=== PATIENT | female | born 1985 | race Caucasian/White ===

== ENCOUNTER 2016-08-26 15:01 | Inpatient (IN) | payer MEDICAID ==
[2016-08-26] MEDS ORDERED: NORMAL SALINE 1000 ML 1,000 ML IV ONE ×2 (15:19→17:57)
[2016-08-26] MEDS ORDERED: ONDANSETRON HCL INJ/PF 4 MG/2 ML SDV IV ONE ×2 (15:19→20:15)
--- NOTE | 2016-08-26 15:42 | ER Document Report ---
ED Flu Like - General Chief Complaint: Flu Symptoms Stated Complaint: FLU LIKE SYMPTOMS Mode of Arrival: Medic Information source: Patient Notes: This is a 31-year-old female who states that she was diagnosed with a positive influenza test 2 days ago. She has had fevers and cough for about 4-1/2 days. She started her Tamiflu 2 days ago but last night awoke with frequent diarrhea. Today at about noon she began to have frequent episodes of vomiting as well. However she does state that the vomiting episodes are post tussive in nature. She states she is having difficulty tolerating by mouth water. She is also continuing to run fevers and states that she last took Tylenol at about noon today. TRAVEL OUTSIDE OF THE [place] IN LAST 30 DAYS: No - Related Data Allergies/Adverse Reactions: amoxicillin [Amoxicillin] Allergy (Verified 06/14/16 11:32) GI upset azithromycin [From Zithromax] Allergy (Verified 06/14/16 11:32) Hives cefaclor [From Ceclor] Allergy (Verified 06/14/16 11:32) cefprozil [From Cefzil] Allergy (Verified 06/14/16 11:32) codeine [Codeine] Allergy (Verified 06/14/16 11:32) GI upset corn [[place]] Allergy (Verified 06/14/16 11:32) gi upset/hives dextrose [Dextrose] Allergy (Verified 06/14/16 11:32) nausea,skin rash erythromycin base [Erythromycin Base] Allergy (Verified 06/14/16 11:32) hives,gi upset metoclopramide HCl [From Reglan] Allergy (Verified 06/14/16 11:32) "Skin crawls" polysorbate 80 [Polysorbate 80] Allergy (Verified 06/14/16 11:32) povidone-iodine [From Betadine] Allergy (Verified 06/14/16 11:32) chemical rash Soap [From Betadine] Allergy (Verified 06/14/16 11:32) chemical rash sorbitol [Sorbitol] Allergy (Verified 06/14/16 11:32) soy [Soy] Allergy (Verified 06/14/16 11:32) GI upset,rash Sulfa (Sulfonamide Antibiotics) Allergy (Verified 06/14/16 11:32) GI upset amoxicillin trihydrate [From Augmentin] Adverse Reaction (Severe, Verified 06/14 11:32) GI upset Potassium Clavulanate * [From Augmentin] Adverse Reaction (Severe, Verified 11:32) GI upset propofol [Propofol] Adverse Reaction (Severe, Verified 06/14/16 11:32) "EXTREME DIFFICULTY WAKING UP" succinylcholine [Succinylcholine] Adverse Reaction (Unknown, Verified 06/14/16 11:32) "STATES MOTHER HAD A BAD REACTION" TOLD NOT TO TAKE droperidol [From Inapsine] Adverse Reaction (Verified 06/14/16 11:32) Psychosis tygan Allergy (Uncoded 06/14/16 11:32) Past Medical History - Social History Smoking Status: Unknown if Ever Smoked Family History: Other - breast CA - Past Medical History Cardiac Medical History: Pulmonary Medical History: Neurological Medical History: Comment Only: Hx Migraine - frequent HAs no migraine dx Renal/ Medical History: Reports: Hx Kidney Stones, Hx Ovarian Cysts GI Medical History: Musculoskeltal Medical History: Infectious Medical History: Past Surgical History: Reports: Hx Abdominal Surgery - laproscopy, Hx Section - x 3, Hx Orthopedic Surgery - rt shoulder bicep repair, Hx Tubal Ligation. Denies: Hx Hysterectomy - Immunizations Immunizations up to date: Yes Hx Diphtheria, Pertussis, Tetanus Vaccination: Yes Physical Exam - Vital signs Vitals: Temp Pulse Resp BP Pulse Ox 99.1 F 122 H 16 126/75 H 97 08/26/16 15:11 08/26/16 15:11 08/26/16 15:11 08/26/16 15:11 08/26/16 15:11 - Notes Notes: PHYSICAL EXAMINATION: GENERAL: Alert and conversant but appears ill. Flushed cheeks. Also somewhat anxious affect HEAD: Atraumatic, normocephalic. EYES: Pupils equal round and reactive to light, extraocular movements intact, sclera anicteric, conjunctiva are normal. ENT: nares patent, oropharynx clear without exudates. Moist mucous membranes. Right TM erythematous. Left TM bulging with prurulence NECK: Normal range of motion, supple without lymphadenopathy LUNGS: Breath sounds clear to auscultation bilaterally and equal. No wheezes rales or rhonchi. HEART: Tachycardic, Regular rate and rhythm without murmurs ABDOMEN: Soft, nontender, normoactive bowel sounds. No guarding, no rebound. No masses appreciated. EXTREMITIES: Normal range of motion, no pitting or edema. No cyanosis. NEUROLOGICAL: Cranial nerves grossly intact. Normal speech, normal gait. Normal sensory, motor, and reflex exams. PSYCH: Normal mood, anxious affect SKIN: Warm, Dry, normal turgor, no rashes or lesions noted. Course - Re-evaluation Re-evalutation: 08/26/16 15:42 Patient presents with flulike illness. However she is tachycardic with a heart rate in the 120s and 130s and does appear dry. She will get IV fluid bolus as well as basic labs. As she has recently been on antibiotics we will test her stool for C. difficile. 08/26/16 17:52 Patient reexamined. She states that she still feels poorly. Her heart rate is 125 after the first liter normal saline. Her labs are reviewed and she does have a leukocytosis of 10.7 with 14% bands. Clinically I'm concerned about pneumonia although her chest x-ray is negative for infiltrate. I will treat with IV antibiotics. She states that she has tolerated Rocephin with no problems in the past despite multiple penicillin allergies. - Vital Signs Vital signs: Temp Pulse Resp BP Pulse Ox 99.8 F 157 H 20 112/75 100 08/26/16 19:31 08/26/16 19:33 08/26/16 21:31 08/26/16 21:31 08/26/16 21:31 - Laboratory Result Diagrams: 08/26/16 15:35 08/26/16 15:35 Laboratory results interpreted by me: 08/26/16 08/26/16 08/26/16 15:35 15:35 15:35 WBC 10.7 H Plt Count 82 L Seg Neuts % (Manual) 84 H Band Neutrophils % 14 H Lymphocytes % (Manual) 1 L Monocytes % (Manual) 1 L Abs Neuts (Manual) 10.5 H Abs Lymphs (Manual) 0.1 L Lactic Acid Magnesium 1.2 L* Urine Protein 100 H Urine Ketones TRACE H 08/26/16 20:20 WBC Plt Count Seg Neuts % (Manual) Band Neutrophils % Lymphocytes % (Manual) Monocytes % (Manual) Abs Neuts (Manual) Abs Lymphs (Manual) Lactic Acid 2.3 H Magnesium Urine Protein Urine Ketones Discharge - Discharge Clinical Impression: Influenza, Tachycardia, Orthostatic hypotension, Bandemia Left otitis media Qualifiers: Otitis media type: suppurative Chronicity: acute Recurrence: not specified as recurrent Spontaneous tympanic membrane rupture: without spontaneous rupture Qualified Code(s): H66.002 - Acute suppurative otitis media without spontaneous rupture of ear drum, left ear Disposition: ADMITTED INPATIENT Admitting Provider: Hospitalist - Dr Hightower Unit Admitted: Telemetry
[2016-08-26 16:01] LABS: HEMATOCRIT 43.9 % (36.0-47.0); HEMOGLOBIN 14.9 g/dL (12.0-15.5); HGB HCT DIFFERENCE 0.8; MEAN CORPUSCULAR HEMOGLOBIN 28.7 pg (27.0-33.4); MEAN CORPUSCULAR VOLUME 84 fl (80-97); RED BLOOD COUNT 5.21 10^6/uL (3.72-5.28); RED CELL DISTRIBUTION WIDTH 13.6 % (11.5-14.0); WHITE BLOOD COUNT 10.7 10^3/uL (4.0-10.5)
[2016-08-26 16:04] LABS: APPEARANCE,URINE CLOUDY; BILIRUBIN,URINE NEGATIVE (NEGATIVE); GLUCOSE, URINE NEGATIVE (NEGATIVE); KETONES,URINE TRACE mg/dL (NEGATIVE); LEUKOCYTE ESTERASE,URINE NEGATIVE (NEGATIVE); NITRITE,URINE NEGATIVE (NEGATIVE); PROTEIN,URINE 100 mg/dL (NEGATIVE); URINE SPECIFIC GRAVITY 1.038; UROBILINOGEN,URINE NEGATIVE mg/dL (<2.0)
[2016-08-26 16:14] LABS: ALANINE AMINOTRANSFERASE 36 U/L (9-52); ALBUMIN 4.1 g/dL (3.5-5.0); ALKALINE PHOSPHATASE 87 U/L (38-126); ANION GAP 12 (5-19); ASPARTATE AMINO TRANSFERASE 31 U/L (14-36); BILIRUBIN,TOTAL 0.9 mg/dL (0.2-1.3); BLOOD UREA NITROGEN 10 mg/dL (7-20); CALCIUM 8.9 mg/dL (8.4-10.2); CARBON DIOXIDE 26 mmol/L (22-30); CHLORIDE 102 mmol/L (98-107); CREATININE RESULT 0.77 mg/dL (0.52-1.25); GLUCOSE 99 mg/dL (75-110); POTASSIUM 4.1 mmol/L (3.6-5.0); SODIUM 139.8 mmol/L (137-145); TOTAL PROTEIN 6.8 g/dL (6.3-8.2)
[2016-08-26 16:31] LABS: BAND NEUTROPHILS % (MANUAL) 14 % (3-5); BASOPHILS % (MANUAL) 0 % (0-2); EOSINOPHILS % (MANUAL) 0 % (0-6); LYMPHOCYTES % (MANUAL) 1 % (13-45); RBC MORPHOLOGY COMMENT NORMO-CYTIC/CHROMIC; TOTAL CELLS COUNTED 100
[2016-08-26] MEDS ORDERED: ACETAMINOPHEN 325 MG TABLET PO ONE (17:38)
[2016-08-26] MEDS ORDERED: LEVOFLOXACIN 750 MG/D5W RTU 150 ML IV ONE (17:43)
[2016-08-26] MEDS ORDERED: CEFTRIAXONE 1 GM/D5W RTU 50 ML IV ONE (17:50)
[2016-08-26] MEDS ORDERED: KETOROLAC TROMETHAMINE INJ/PF 30 MG/1 ML SDV IV ONE (17:51)
[2016-08-26] MEDS ORDERED: LEVOFLOXACIN 750 MG TABLET PO ONE (18:06)
[2016-08-26] MEDS ORDERED: CEFTRIAXONE INJ 500 MG VIAL IV ONE (20:09)
[2016-08-26] MEDS ORDERED: NORMAL SALINE 1000 ML 2,000 ML IV ONE (21:17)
[2016-08-26 21:34] LABS: ADD ON TESTING BLD IN LAB ACKNOWLEDGE
--- NOTE | 2016-08-26 21:57 | PDOC H&P ---
History of Present Illness Admission Date/PCP: Dr. Varela Patient complains of: Fever, cough, nausea vomiting and diarrhea History of Present Illness: JESUS ALBERTO PARADA is a 31 year old female, basically healthy other than multiple medication allergies, who presents to the emergency room for evaluation of above complaints. This past Saturday, she completed a 10 day course of twice a day Keflex for strep throat. she describes fever to 102.8 along with slightly productive cough for the past 4 days or so. Positive influenza test 2 days ago. Has taken 4 doses of Tamiflu. Frequent nonbloody diarrhea for approximately 18 hours or so. Frequent nonbloody nausea and vomiting for the past 8 hours or so. Vomiting is mostly post tussive in nature. Difficulty tolerating water by mouth. Has been tachycardic in the emergency room, in the 120 to 130 range, with pulse decreasing now after 2 L of IV fluid as a bolus. Pulse in the 150 range when she gets up out of bed to the bathroom. She has now been restricted to bed rest with bedside toilet only, out of bed with assistance only, fall risk. Mild abdominal discomfort with her nausea only. Noted by emergency room physician to have left otitis media; please see her physical exam notes. Patient has been discussed with emergency room physician who evaluated the patient. . Laboratory results are listed in [facility] and are reviewed. X-ray summary results are listed below, with full report(s) reviewed. . Social history/personal habits: . is at bedside, with patient's approval. 3 children. 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 Small amount of alcohol once a month. No tobacco or illicit drug use. Allergies/adverse reactions are listed in [facility] and are reviewed. Home medications none REVIEW OF SYSTEMS: Constitutional: See history and present illness. Eyes: No current vision complaints. ENT: Mild sore throat. Mild to moderate left ear pain. Pulmonary: See history and present illness. Cardiovascular: No current complaints, including chest pain. Gastrointestinal: See history and present illness. Skin: No current complaints, including rashes. Hematologic: Easy bruising. Neurologic: No current complaints, including numbness or tingling. Musculoskeletal: No current complaints, including painful joints. Psychiatric: No current complaints, including anxiety or depression. Endocrine: No current complaints, including polyuria. Genitourinary: No current complaints, including dysuria. PHYSICAL EXAMINATION: 5 feet 5 inches tall. 70.3 kg. Pulse 129 and regular. 98% saturation on room air. Respirations are 18. Unlabored. Blood pressure 109/71. Temperature 99.8 ; 102.1 at its maximum in the emergency room. Slightly overweight otherwise well-nourished well-developed though obviously sick appearing young female who appears approximately her stated age. Pleasant awake alert and cooperative. Fatigued appearance. Mildly anxious, but no agitation. Emergency room nurse Luz Maria is present. Skin is warm and dry and flushed. No grossly obvious evidence of rash in areas of skin examined. No subcutaneous nodules palpated. ENT: Hearing grossly normal to normal conversation. Tongue midline on protrusion pink and slightly tacky. Eyes: No scleral icterus. Pupils equal and reactive to light at 4 mm. [place] conjunctivae. Neck is supple and nontender to gentle active range of motion and palpation. Midline trachea. No palpable thyroid nodule mass enlargement or tenderness. Lymphatic: No palpable cervical or clavicular nodes. Neck and lymphatic exams limited by patient body habitus. Psychiatric: Reasonable insight into acute and chronic medical issues. Oriented to time location and why here. Lungs: Auscultation reveals equal breath sounds bilaterally. No use of accessory respiratory muscles. Faintly coarse breath sounds bilaterally. Cardiovascular: Heart regular rate and rhythm, without gallop murmur or rub. No carotid or abdominal aortic bruits. No ankle or pedal edema. Faintly palpable dorsalis pedis pulses. Abdomen: soft, , slightly distended nontender with positive bowel sounds. Unable to adequately evaluate abdomen for masses or organomegaly due to distention. Extremities: Feet are warm and dry. No calf tenderness to compression. No grossly obvious visual evidence of calf swelling. Gentle manipulation of lower extremities fails to reveal any obvious evidence of injury or instability to knees hips or ankles. Neurologic: Moves upper extremities grossly normally. Patellar reflexes absent. Absent Babinski. Light touch is intact at feet. Dorsiflexion and plantarflexion of feet 5 / 5 and symmetric. 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 Denies: Hemorrhagic CVA, Ischemic CVA Comment Only: Migraine - frequent HAs no migraine dx Endocrine Medical History: Denies: Diabetes Mellitus Type 1, Diabetes Mellitus Type 2, Hyperthyroidism, Hypothyroidism Renal/ Medical History: Reports: None GI Medical History: Denies: Cirrhosis, Gastroesophageal Reflux Disease, Peptic Ulcer Disease Musculoskeltal Medical History: Denies: Arthritis Skin Medical History: Reports: None Psychiatric Medical History: Denies: Alcohol Dependency, Depression, General Anxiety Disorder, Substance Abuse, Tobacco Dependency Hematology: Reports: Anemia - 2009 iron,bleeding post c section, Other - Easy bruising. Infectious Medical History: Denies: Clostridium Difficile, Hepatitis B, Hepatitis C Past Surgical History Past Surgical History: Reports: Section - x 3, Orthopedic Surgery - rt shoulder bicep repair, Tubal Ligation Denies: Hysterectomy Social History Information Source: Patient, Emergency Med Personnel, [facility] Records Lives with: Spouse/Significant other Smoking Status: Unknown if Ever Smoked Frequency of Alcohol Use: Social Hx Recreational Drug Use: No Hx Prescription Drug Abuse: No - Advance Directive Resuscitation Status: Full Code Surrogate healthcare decision maker:: Family History Family History: Other - breast CA Parental Family History Reviewed: Yes Children Family History Reviewed: Yes Sibling(s) Family History Reviewed.: Yes Medication/Allergy Home Medications: Cephalexin Monohydrate [Keflex 500 mg Capsule] 500 mg PO QID #20 capsule Promethazine HCl [Phenergan 25 mg Tablet] 25 mg PO ASDIR PRN #12 tablet Allergies/Adverse Reactions: amoxicillin [Amoxicillin] Allergy (Verified 06/14/16 11:32) GI upset azithromycin [From Zithromax] Allergy (Verified 06/14/16 11:32) Hives cefaclor [From Ceclor] Allergy (Verified 06/14/16 11:32) cefprozil [From Cefzil] Allergy (Verified 06/14/16 11:32) codeine [Codeine] Allergy (Verified 08/27/16 04:05) GI upset corn [[place]] Allergy (Verified 06/14/16 11:32) gi upset/hives dextrose [Dextrose] Allergy (Verified 06/14/16 11:32) nausea,skin rash erythromycin base [Erythromycin Base] Allergy (Verified 06/14/16 11:32) hives,gi upset metoclopramide HCl [From Reglan] Allergy (Verified 06/14/16 11:32) "Skin crawls" polysorbate 80 [Polysorbate 80] Allergy (Verified 06/14/16 11:32) povidone-iodine [From Betadine] Allergy (Verified 06/14/16 11:32) chemical rash Soap [From Betadine] Allergy (Verified 06/14/16 11:32) chemical rash sorbitol [Sorbitol] Allergy (Verified 06/14/16 11:32) soy [Soy] Allergy (Verified 06/14/16 11:32) GI upset,rash Sulfa (Sulfonamide Antibiotics) Allergy (Verified 06/14/16 11:32) GI upset amoxicillin trihydrate [From Augmentin] Adverse Reaction (Severe, Verified 06/14 11:32) GI upset Potassium Clavulanate * [From Augmentin] Adverse Reaction (Severe, Verified 11:32) GI upset propofol [Propofol] Adverse Reaction (Severe, Verified 06/14/16 11:32) "EXTREME DIFFICULTY WAKING UP" succinylcholine [Succinylcholine] Adverse Reaction (Unknown, Verified 06/14/16 11:32) "STATES MOTHER HAD A BAD REACTION" TOLD NOT TO TAKE droperidol [From Inapsine] Adverse Reaction (Verified 06/14/16 11:32) Psychosis tygan Allergy (Uncoded 06/14/16 11:32) Physical Exam Vital Signs: Temp Pulse Resp BP Pulse Ox 99.8 F 157 H 18 109/71 97 08/26/16 19:31 08/26/16 19:33 08/26/16 20:48 08/26/16 20:48 08/26/16 20:48 Intake & Output 08/25/16 08/26/16 08/27/16 00:59 00:59 00:59 Weight 70.307 kg Results Laboratory Results: 08/26/16 15:35 08/26/16 15:35 08/26/16 08/26/16 08/26/16 15:35 15:35 15:35 WBC 10.7 H RBC 5.21 Hgb 14.9 Hct 43.9 MCV 84 MCH 28.7 MCHC 34.0 RDW 13.6 Plt Count 82 L Seg Neutrophils % Not Reportable Lymphocytes % Not Reportable Monocytes % Not Reportable Eosinophils % Not Reportable Basophils % Not Reportable Absolute Neutrophils Not Reportable Absolute Lymphocytes Not Reportable Absolute Monocytes Not Reportable Absolute Eosinophils Not Reportable Absolute Basophils Not Reportable Sodium 139.8 Potassium 4.1 Chloride 102 Carbon Dioxide 26 Anion Gap 12 BUN 10 Creatinine 0.77 Est GFR ( Amer) > 60 Est GFR (Non-Af Amer) > 60 Glucose 99 Lactic Acid Calcium 8.9 Total Bilirubin 0.9 AST 31 ALT 36 Alkaline Phosphatase 87 Total Protein 6.8 Albumin 4.1 Serum HCG, Qual NEGATIVE Urine Color Urine Appearance Urine pH Ur Specific [place] Urine Protein Urine Glucose (UA) Urine Ketones Urine Blood Urine Nitrite Ur Leukocyte Esterase Urine WBC (Auto) Urine RBC (Auto) 08/26/16 08/26/16 15:35 20:20 WBC RBC Hgb Hct MCV MCH MCHC RDW Plt Count Seg Neutrophils % Lymphocytes % Monocytes % Eosinophils % Basophils % Absolute Neutrophils Absolute Lymphocytes Absolute Monocytes Absolute Eosinophils Absolute Basophils Sodium Potassium Chloride Carbon Dioxide Anion Gap BUN Creatinine Est GFR ( Amer) Est GFR (Non-Af Amer) Glucose Lactic Acid 2.3 H Calcium Total Bilirubin AST ALT Alkaline Phosphatase Total Protein Albumin Serum HCG, Qual Urine Color DARK YELLOW Urine Appearance CLOUDY Urine pH 5.0 Ur Specific [place] 1.038 Urine Protein 100 H Urine Glucose (UA) NEGATIVE Urine Ketones TRACE H Urine Blood NEGATIVE Urine Nitrite NEGATIVE Ur Leukocyte Esterase NEGATIVE Urine WBC (Auto) 6 Urine RBC (Auto) 4 Impressions: Chest X-Ray 08/26/16 16:36 IMPRESSION: NO SIGNIFICANT RADIOGRAPHIC FINDING IN THE CHEST. Assessment & Plan - Diagnosis (1) Influenza Is this a current diagnosis for this admission?: YesPlan: Will resume her final 3 days of Tamiflu once her nausea and vomiting have resolved. Supportive care at present. Droplet precautions. (2) Left otitis media Qualifiers: Otitis media type: suppurative Chronicity: acute Recurrence: not specified as recurrent Spontaneous tympanic membrane rupture: without spontaneous rupture Qualified Code(s): H66.002 - Acute suppurative otitis media without spontaneous rupture of ear drum, left ear Is this a current diagnosis for this admission?: Yes (3) Nausea vomiting and diarrhea Is this a current diagnosis for this admission?: YesPlan: IV fluids. Stool to be sent for culture and sensitivity. Negative C. difficile so far. When necessary Phenergan. (4) Thrombocytopenia Is this a current diagnosis for this admission?: YesPlan: Likely due to her acute illness. Follow-up CBC with differential. (5) Pneumonia Qualifiers: Pneumonia type: due to unspecified organism Laterality: unspecified laterality Lung location: unspecified part of lung Qualified Code(s) : J18.9 - Pneumonia, unspecified organism Is this a current diagnosis for this admission?: YesPlan: Suspected by clinical presentation and exam. Patient will be admitted under pneumonia protocol. Incentive spirometry twice a day. PRN DuoNeb's. Antibiotics will consist of Rocephin and by mouth doxycycline; intravenous doxycycline contains dextrose, to which she is allergic.. I strongly encouraged patient to notify staff should patient feel that respiratory status is worsening. Patient is a full code. I have strongly encouraged patient not to get out of bed without notifying staff , , to avoid a fall with injury. Knee high SCDs for DVT prophylaxis; will forego Lovenox or heparin due to her thrombocytopenia. Impression and plans were discussed with patient, and , both of whom concur. Time spent in evaluation and management of patient: 68 minutes. (6) Multiple allergies Is this a current diagnosis for this admission?: Yes
[2016-08-26 22:02] LABS: MAGNESIUM 1.2 mg/dL (1.6-2.3)
[2016-08-26] MEDS: DOXYCYCLINE HYCLATE 100 MG TABLET PO SCH (22:23)
[2016-08-26] MEDS: NORMAL SALINE 1000 ML 1,000 ML IV PRN (22:24)
[2016-08-26] MEDS ORDERED: PROMETHAZINE HCL INJ 25 MG/1 ML VIAL ONE (22:31)
[2016-08-26] MEDS: PROMETHAZINE HCL INJ 25 MG/1 ML VIAL IV PRN (22:36)
[2016-08-27] MEDS ORDERED: MAGNESIUM SULFATE INJ 8 MEQ/2 ML IV SCH
[2016-08-27] MEDS: ACETAMINOPHEN 325 MG TABLET PO PRN ×2 (01:43→12:35)
[2016-08-27 02:38] LABS: ANION GAP 10 (5-19); BLOOD UREA NITROGEN 6 mg/dL (7-20); CALCIUM 7.2 mg/dL (8.4-10.2); CARBON DIOXIDE 19 mmol/L (22-30); CHLORIDE 108 mmol/L (98-107); CREATININE RESULT 0.72 mg/dL (0.52-1.25); GLUCOSE 77 mg/dL (75-110); POTASSIUM 4.4 mmol/L (3.6-5.0); SODIUM 136.7 mmol/L (137-145)
[2016-08-27] MEDS ORDERED: RINGERS SOLUTION,LACTATED 1,000 ML IV ONE (04:00)
[2016-08-27] MEDS ORDERED: MORPHINE SULFATE 10 MG/ML INJ IV PRN (04:03)
[2016-08-27] MEDS: MORPHINE SULFATE 10 MG/ML INJ IV PRN ×4 (04:12→22:30)
[2016-08-27 07:29] LABS: ANION GAP 8 (5-19); BLOOD UREA NITROGEN 5 mg/dL (7-20); CALCIUM 7.5 mg/dL (8.4-10.2); CARBON DIOXIDE 19 mmol/L (22-30); CHLORIDE 111 mmol/L (98-107); CREATININE RESULT 0.62 mg/dL (0.52-1.25); GLUCOSE 84 mg/dL (75-110); POTASSIUM 4.3 mmol/L (3.6-5.0); SODIUM 137.7 mmol/L (137-145)
[2016-08-27 07:35] LABS: HEMATOCRIT 35.6 % (36.0-47.0); HGB HCT DIFFERENCE 0.4; MEAN CORPUSCULAR HEMOGLOBIN 28.7 pg (27.0-33.4); MEAN CORPUSCULAR HGB CONC 33.8 g/dL (32.0-36.0); MEAN CORPUSCULAR VOLUME 85 fl (80-97); RED CELL DISTRIBUTION WIDTH 13.9 % (11.5-14.0); WHITE BLOOD COUNT 9.9 10^3/uL (4.0-10.5)
[2016-08-27 08:11] LABS: BAND NEUTROPHILS % (MANUAL) 8 % (3-5); BASOPHILS % (MANUAL) 0 % (0-2); EOSINOPHILS % (MANUAL) 0 % (0-6); LYMPHOCYTES % (MANUAL) 2 % (13-45); TOTAL CELLS COUNTED 100
[2016-08-27 08:14] LABS: BURR CELLS SLIGHT; POIKILOCYTOSIS SLIGHT; TOXIC GRANULATION 1+; TOXIC VACUOLATION PRESENT
[2016-08-27] MEDS ORDERED: CEFTRIAXONE 1 GM/D5W RTU 50 ML IV SCH (10:00)
[2016-08-27] MEDS: NORMAL SALINE 1000 ML 1,000 ML IV PRN ×2 (10:06→18:25)
[2016-08-27] MEDS: DOXYCYCLINE HYCLATE 100 MG TABLET PO SCH ×2 (10:07→21:22)
[2016-08-27] MEDS: CEFTRIAXONE SODIUM 1,000 MG in NORMAL SALINE 50 ML IV SCH (10:50)
--- NOTE | 2016-08-27 10:50 | PDOC PROGRESS REPORT ---
Subjective Progress Note for:: 08/27/16 Subjective:: Reason for visit: Follow-up influenza pneumonia Patient presents with: Fever, cough, nausea vomiting and diarrhea Hospital course: Per H&P "JESUS ALBERTO PARADA is a 31 year old female, basically healthy other than multiple medication allergies, who presents to the emergency room for evaluation of above complaints. This past Saturday, she completed a 10 day course of twice a day Keflex for strep throat. she describes fever to 102.8 along with slightly productive cough for the past 4 days or so. Positive influenza test 2 days ago. Has taken 4 doses of Tamiflu. Frequent nonbloody diarrhea for approximately 18 hours or so. Frequent nonbloody nausea and vomiting for the past 8 hours or so. Vomiting is mostly post tussive in nature. Difficulty tolerating water by mouth. Has been tachycardic in the emergency room, in the 120 to 130 range, with pulse decreasing now after 2 L of IV fluid as a bolus. Pulse in the 150 range when she gets up out of bed to the bathroom. She has now been restricted to bed rest with bedside toilet only, out of bed with assistance only, fall risk. Mild abdominal discomfort with her nausea only. Noted by emergency room physician to have left otitis media; please see her physical exam notes." I'll see her in follow-up this morning and she reports to feel similar to presentation perhaps slightly improved. She is still feeling a bit nauseous but is attempting oral intake. Still has "rough breathing" with cough productive of white frothy phlegm but is not dyspneic while at rest. She does not endorse cardiac type chest pain but does have chest wall discomfort with cough developing. She complains of generalized myalgias and arthralgias. Subjective: As above. ROS - per HPI plus a total of 10 systems reviewed, pertinent positives and negatives noted above, remaining systems negative. Physical Exam Vital Signs: Temp Pulse Resp BP Pulse Ox 98.5 F 157 H 27 H 108/75 100 08/27/16 07:45 08/26/16 19:33 08/27/16 08:31 08/27/16 08:31 08/27/16 08:31 Intake & Output 08/26/16 08/27/16 08/28/16 06:59 06:59 06:59 Intake Total 4500 Balance 4500 EXAM GENERAL: NAD; well developed, well nourished; no obese; alert and oriented to person, place, time, situation HEENT: normocephalic, atraumatic; no conjunctival injection, no scleral icterus ; oral mucosa moist without erythema or exudate; RESPIRATORY: no accessory muscle use, no increased WOB, good air entry bilaterally; no wheezes, rales, rhonchi; bilateral coarse inspiratory crackles CARDIO: no JVD; no systolic murmur; persistent tachycardia and current rate in the 110's GI: soft; nondistended; normal bowel sounds; no rebound, rigidity, guarding; mild diffuse abdominal wall tenderness that does not localize with palpation VASCULAR: no pallor; 2+ radial, DP pulse; normal capillary refill EXTREMITIES: no calf tender; no palpable cords in calf; no clubbing, cyanosis , pedal edema PSYCH: normal affect, normal mood SKIN: warm; moist; no petechiae; no telengectasias; no jaundice; no rash Results Laboratory Results: 08/27/16 06:45 08/27/16 06:45 08/27/16 08/27/16 08/27/16 01:07 02:10 06:45 WBC 9.9 RBC 4.20 Hgb 12.0 D Hct 35.6 L MCV 85 MCH 28.7 MCHC 33.8 RDW 13.9 Plt Count 63 L Seg Neutrophils % Not Reportable Lymphocytes % Not Reportable Monocytes % Not Reportable Eosinophils % Not Reportable Basophils % Not Reportable Absolute Neutrophils Not Reportable Absolute Lymphocytes Not Reportable Absolute Monocytes Not Reportable Absolute Eosinophils Not Reportable Absolute Basophils Not Reportable Sodium 136.7 L Potassium 4.4 Chloride 108 H Carbon Dioxide 19 L Anion Gap 10 BUN 6 L Creatinine 0.72 Est GFR ( Amer) > 60 Est GFR (Non-Af Amer) > 60 Glucose 77 Lactic Acid 2.7 H Calcium 7.2 L 08/27/16 06:45 WBC RBC Hgb Hct MCV MCH MCHC RDW Plt Count Seg Neutrophils % Lymphocytes % Monocytes % Eosinophils % Basophils % Absolute Neutrophils Absolute Lymphocytes Absolute Monocytes Absolute Eosinophils Absolute Basophils Sodium 137.7 Potassium 4.3 Chloride 111 H Carbon Dioxide 19 L Anion Gap 8 BUN 5 L Creatinine 0.62 Est GFR ( Amer) > 60 Est GFR (Non-Af Amer) > 60 Glucose 84 Lactic Acid Calcium 7.5 L Labs reviewed Impressions: Chest X-Ray 08/26/16 16:36 IMPRESSION: NO SIGNIFICANT RADIOGRAPHIC FINDING IN THE CHEST. Status: Imported from PACS - Reports reviewed Assessment & Plan - Diagnosis (1) Influenza Is this a current diagnosis for this admission?: YesPlan: Continue Tamiflu and supportive care. (2) Left otitis media Qualifiers: Otitis media type: suppurative Chronicity: acute Recurrence: not specified as recurrent Spontaneous tympanic membrane rupture: without spontaneous rupture Qualified Code(s): H66.002 - Acute suppurative otitis media without spontaneous rupture of ear drum, left ear Is this a current diagnosis for this admission?: YesPlan: Continue antibiotics begun by Dr. Hightower. Monitor for improvement. (3) Sepsis Is this a current diagnosis for this admission?: YesPlan: Secondary to the above; evidenced by tachycardia, tachypnea and a source. Continue treatment with antibiotics and IV fluids. (4) Nausea vomiting and diarrhea Is this a current diagnosis for this admission?: YesPlan: Likely related to the viral illness, continue supportive care and IV fluids. No known prior exposure to C. difficile and testing is negative. (5) Thrombocytopenia Is this a current diagnosis for this admission?: YesPlan: Likely secondary to the acute viral illness and sepsis. Cannot use pharmaceutical DVT prophylaxis as a result. (6) Pneumonia Qualifiers: Pneumonia type: due to unspecified organism Laterality: unspecified laterality Lung location: unspecified part of lung Qualified Code(s) : J18.9 - Pneumonia, unspecified organism Is this a current diagnosis for this admission?: YesPlan: Possible bacterial superinfection, agree with antibiotics started by Dr. Hightower. Follow up on sputum and blood cultures and wean antibiotics accordingly. - Time Time Spent with patient: 25-34 minutes Medications reviewed and adjusted accordingly: Yes Anticipated discharge: Home Within: within 48 hours
[2016-08-27] MEDS: PROMETHAZINE HCL INJ 25 MG/1 ML VIAL IV PRN ×2 (12:09→22:31)
[2016-08-27] MEDS: IPRATROPIUM/ALBUTEROL 0.5-2.5 MG/3 ML AMPUL NEB PRN (12:35)
[2016-08-27 12:51] LABS: PATH REVIEW PATHOLOGIST REVIEWED
[2016-08-27] MEDS ORDERED: NORMAL SALINE 1000 ML 1,000 ML IV PRN (21:29)
[2016-08-27] MEDS ORDERED: OSELTAMIVIR PHOSPHATE 75 MG CAPSULE PO ONE (22:00)
[2016-08-27] MEDS ORDERED: OSELTAMIVIR PHOSPHATE 75 MG CAPSULE ONE (22:54)
[2016-08-28 05:22] LABS: ABSOLUTE EOSINOPHILS # (AUTO) 0.1 10^3/uL (0.0-0.6); ABSOLUTE LYMPHOCYTES (AUTO) 0.7 10^3/uL (0.5-4.7); ABSOLUTE MONOCYTES (AUTO) 0.3 10^3/uL (0.1-1.4); ABSOLUTE NEUT (AUTO) 5.7 10^3/uL (1.7-8.2); BASOPHILS % (AUTO) 0.3 % (0-2); EOSINOPHILS % (AUTO) 1.6 % (0-6); HEMOGLOBIN 11.1 g/dL (12.0-15.5); HGB HCT DIFFERENCE 1.3; LYMPHOCYTES % (AUTO) 9.7 % (13-45); MEAN CORPUSCULAR HEMOGLOBIN 29.1 pg (27.0-33.4); MEAN CORPUSCULAR HGB CONC 34.8 g/dL (32.0-36.0); MEAN CORPUSCULAR VOLUME 84 fl (80-97); MONOCYTES % (AUTO) 3.7 % (3-13); RED BLOOD COUNT 3.83 10^6/uL (3.72-5.28); RED CELL DISTRIBUTION WIDTH 13.8 % (11.5-14.0); SEGMENTED NEUTROPHILS % (AUTO) 84.7 % (42-78); WHITE BLOOD COUNT 6.8 10^3/uL (4.0-10.5)
[2016-08-28] MEDS: MORPHINE SULFATE 10 MG/ML INJ IV PRN ×3 (07:08→22:35)
[2016-08-28] MEDS: ACETAMINOPHEN 325 MG TABLET PO PRN ×2 (07:51→21:05)
[2016-08-28] MEDS: CEFTRIAXONE SODIUM 1,000 MG in NORMAL SALINE 50 ML IV SCH (09:42)
[2016-08-28] MEDS: OSELTAMIVIR PHOSPHATE 75 MG CAPSULE PO SCH ×2 (09:43→18:17)
[2016-08-28] MEDS: DOXYCYCLINE HYCLATE 100 MG TABLET PO SCH ×2 (09:43→21:06)
[2016-08-28] MEDS: PROMETHAZINE HCL INJ 25 MG/1 ML VIAL IV PRN (10:26)
--- NOTE | 2016-08-28 13:07 | PDOC PROGRESS REPORT ---
Subjective Progress Note for:: 08/28/16 Subjective:: Patient had a height hypoxemia this morning was an O2 sat of 86 on room air Patient is oxygenating adequately with nasal O2 She still has severe pain in the left ear, and states that her hearing is almost completely impaired She's had no nausea no vomiting no pleuritic chest pain Physical Exam Vital Signs: Temp Pulse Resp BP Pulse Ox 98.8 F 105 H 18 105/59 L 88 L 08/28/16 11:14 08/28/16 11:14 08/28/16 11:14 08/28/16 11:14 08/28/16 11:14 Intake & Output 08/27/16 08/28/16 08/29/16 00:59 00:59 00:59 Intake Total 4500 481 948 Balance 4500 481 948 Weight 74.2 kg General appearance: PRESENT: no acute distress Head exam: PRESENT: atraumatic, normocephalic Eye exam: PRESENT: conjunctiva pink, EOMI, PERRLA. ABSENT: scleral icterus Ear exam: PRESENT: other - Left tympanic membrane is dull and ecchymotic There is small rupture soon to really with a 2 mm hole of tympanic membrane Right ear is normal Mouth exam: PRESENT: moist, tongue midline Respiratory exam: PRESENT: clear to auscultation lelia. ABSENT: rhonchi, wheezes Cardiovascular exam: PRESENT: RRR, tachycardia. ABSENT: diastolic murmur, rubs , systolic murmur GI/Abdominal exam: PRESENT: normal bowel sounds, soft. ABSENT: distended, guarding, mass, organolmegaly, rebound, tenderness Neurological exam: PRESENT: alert, awake, oriented to person, oriented to place , oriented to time, oriented to situation, CN II-XII grossly intact. ABSENT: motor sensory deficit Results Laboratory Results: 08/28/16 05:07 08/27/16 06:45 08/28/16 08/28/16 05:07 05:07 WBC 6.8 RBC 3.83 Hgb 11.1 L Hct 32.0 L MCV 84 MCH 29.1 MCHC 34.8 RDW 13.8 Plt Count 80 L Seg Neutrophils % 84.7 H Lymphocytes % 9.7 L Monocytes % 3.7 Eosinophils % 1.6 Basophils % 0.3 Absolute Neutrophils 5.7 Absolute Lymphocytes 0.7 Absolute Monocytes 0.3 Absolute Eosinophils 0.1 Absolute Basophils 0.0 Magnesium 1.7 Impressions: Chest X-Ray 08/26/16 16:36 IMPRESSION: NO SIGNIFICANT RADIOGRAPHIC FINDING IN THE CHEST. Assessment & Plan - Diagnosis (1) Influenza Is this a current diagnosis for this admission?: YesPlan: Patient is being treated a with Tamiflu continue the present management (2) Left otitis media Qualifiers: Otitis media type: suppurative Chronicity: acute Recurrence: not specified as recurrent Spontaneous tympanic membrane rupture: without spontaneous rupture Qualified Code(s): H66.002 - Acute suppurative otitis media without spontaneous rupture of ear drum, left ear Is this a current diagnosis for this admission?: YesPlan: Continue antibiotic management for now we will reevaluate antibiotic coverage (3) Tachycardia Is this a current diagnosis for this admission?: YesPlan: Likely related to hypoxemia Continue O2 supplementation (4) Pneumonia Qualifiers: Pneumonia type: due to unspecified organism Laterality: unspecified laterality Lung location: unspecified part of lung Qualified Code(s) : J18.9 - Pneumonia, unspecified organism Is this a current diagnosis for this admission?: YesPlan: CTA of the chest will be performed this afternoon to exclude pulmonary emboli and evaluate lung parenchyma Initial chest x-ray was normal - Time Time Spent with patient: 25-34 minutes
[2016-08-29] MEDS: GUAIFENESIN SYRP 200 MG/10 ML UDC PO PRN ×2 (02:53→07:31)
[2016-08-29] MEDS: MORPHINE SULFATE 10 MG/ML INJ IV PRN ×2 (02:53→16:49)
[2016-08-29] MEDS: PROMETHAZINE HCL INJ 25 MG/1 ML VIAL IV PRN (07:30)
[2016-08-29] MEDS: DOXYCYCLINE HYCLATE 100 MG TABLET PO SCH (10:20)
[2016-08-29] MEDS: OSELTAMIVIR PHOSPHATE 75 MG CAPSULE PO SCH ×2 (10:20→17:59)
[2016-08-29] MEDS: CEFTRIAXONE SODIUM 1,000 MG in NORMAL SALINE 50 ML IV SCH (10:21)
--- NOTE | 2016-08-29 10:24 | PDOC PROGRESS REPORT ---
Subjective Progress Note for:: 08/29/16 Subjective:: Patient is still quite ill; still hypoxemic She is now coughing up purulent mucus ; the pain in her ear is still persistent She has no fever no chills Physical Exam Vital Signs: Temp Pulse Resp BP Pulse Ox 98.3 F 94 16 119/71 93 08/29/16 07:28 08/29/16 07:28 08/29/16 07:28 08/29/16 07:28 08/29/16 07:28 Intake & Output 08/28/16 08/29/16 08/30/16 00:59 00:59 00:59 Intake Total 481 2302 1227 Output Total 400 1100 Balance 481 1902 127 Weight 74.2 kg 78.2 kg General appearance: PRESENT: mild distress Head exam: PRESENT: atraumatic, normocephalic Eye exam: PRESENT: conjunctiva pink, EOMI, PERRLA. ABSENT: scleral icterus Neck exam: ABSENT: carotid bruit, JVD, lymphadenopathy, thyromegaly Respiratory exam: PRESENT: rhonchi, wheezes - Bilaterally. ABSENT: accessory muscle use Cardiovascular exam: PRESENT: RRR. ABSENT: diastolic murmur, rubs, systolic murmur GI/Abdominal exam: PRESENT: normal bowel sounds, soft. ABSENT: distended, guarding, mass, organolmegaly, rebound, tenderness Extremities exam: PRESENT: full ROM. ABSENT: calf tenderness, clubbing, pedal edema Neurological exam: PRESENT: alert, awake, oriented to person, oriented to place , oriented to time, oriented to situation, CN II-XII grossly intact. ABSENT: motor sensory deficit Results Laboratory Results: 08/28/16 05:07 08/27/16 06:45 08/27/16 01:04 Blood Culture - Preliminary Blood NO GROWTH AFTER 48 HOURS 08/26/16 23:59 Blood Culture - Preliminary Blood NO GROWTH AFTER 48 HOURS 08/26/16 21:15 - Final Stool - Stool Stool Culture - Final Group A Beta Streptococcus Impressions: Chest X-Ray 08/26/16 16:36 IMPRESSION: NO SIGNIFICANT RADIOGRAPHIC FINDING IN THE CHEST. Lung Scan-VQ NM 08/28/16 16:13 IMPRESSION: NORMAL VENTILATION-PERFUSION LUNG SCAN. NEGATIVE FOR PULMONARY EMBOLI. Assessment & Plan - Diagnosis (1) Influenza Is this a current diagnosis for this admission?: YesPlan: Continue Tamiflu until morning (2) Left otitis media Qualifiers: Otitis media type: suppurative Chronicity: acute Recurrence: not specified as recurrent Spontaneous tympanic membrane rupture: without spontaneous rupture Qualified Code(s): H66.002 - Acute suppurative otitis media without spontaneous rupture of ear drum, left ear Is this a current diagnosis for this admission?: YesPlan: Hemotympanum with perforated tympanic membrane ENT will come and evaluate the patient this morning (3) Tachycardia Is this a current diagnosis for this admission?: Yes (4) Pneumonia Qualifiers: Pneumonia type: due to unspecified organism Laterality: unspecified laterality Lung location: unspecified part of lung Qualified Code(s) : J18.9 - Pneumonia, unspecified organism Is this a current diagnosis for this admission?: YesPlan: Continue ceftriaxone We will discontinue doxycycline and replace it with Levaquin IV Patient will undergo today CT of the chest no contrast Lung scan was negative for PE Sputum cultures will be obtained - Time Time Spent with patient: Patient still looks extremely ill Noted that she did have thrombocytopenia We will repeat CBC today and order workup for DIC Time Spent with patient: 25-34 minutes
[2016-08-29] MEDS ORDERED: GUAIFENESIN 600 MG TABLET.SA PO ONE (11:00)
[2016-08-29] MEDS ORDERED: BENZONATATE 100 MG CAPSULE PO ONE (11:00)
[2016-08-29] MEDS ORDERED: METHYLPREDNISOLONE INJ 125 MG/2 ML SDV IV ONE (11:30)
[2016-08-29] MEDS ORDERED: LEVOFLOXACIN 750 MG/D5W RTU 750 MG/150 ML RTUPB IV SCH (12:00)
[2016-08-29] MEDS: LEVOFLOXACIN 750 MG TABLET PO SCH (12:43)
[2016-08-29] MEDS: BENZONATATE 100 MG CAPSULE PO SCH ×2 (13:38→21:30)
[2016-08-29] MEDS ORDERED: BENZONATATE 100 MG CAPSULE PO SCH (14:00)
[2016-08-29 14:23] LABS: FIBRINOGEN 392 mg/dL (209-497); PROTHROMBIN TIME 13.4 SEC (11.4-15.4)
[2016-08-29 14:24] LABS: ABSOLUTE LYMPHOCYTES (AUTO) 0.5 10^3/uL (0.5-4.7); ABSOLUTE MONOCYTES (AUTO) 0.2 10^3/uL (0.1-1.4)
[2016-08-29 14:26] LABS: D-DIMER 2.18 ug/mL (0.00-0.50)
[2016-08-29 14:45] LABS: ABSOLUTE EOSINOPHILS # (AUTO) 0.1 10^3/uL (0.0-0.6); ABSOLUTE NEUT (AUTO) 3.4 10^3/uL (1.7-8.2); BASOPHILS % (AUTO) 0.2 % (0-2); EOSINOPHILS % (AUTO) 2.5 % (0-6); HEMATOCRIT 32.1 % (36.0-47.0); HEMOGLOBIN 10.9 g/dL (12.0-15.5); HGB HCT DIFFERENCE 0.6; MEAN CORPUSCULAR HEMOGLOBIN 28.6 pg (27.0-33.4); MEAN CORPUSCULAR VOLUME 84 fl (80-97); MONOCYTES % (AUTO) 4.3 % (3-13); RED BLOOD COUNT 3.81 10^6/uL (3.72-5.28); RED CELL DISTRIBUTION WIDTH 14.1 % (11.5-14.0); WHITE BLOOD COUNT 4.2 10^3/uL (4.0-10.5)
[2016-08-29 15:01] LABS: ALANINE AMINOTRANSFERASE 49 U/L (9-52); ALBUMIN 2.5 g/dL (3.5-5.0); ALKALINE PHOSPHATASE 106 U/L (38-126); ANION GAP 8 (5-19); ASPARTATE AMINO TRANSFERASE 55 U/L (14-36); BILIRUBIN,TOTAL 0.8 mg/dL (0.2-1.3); BLOOD UREA NITROGEN 7 mg/dL (7-20); CALCIUM 8.1 mg/dL (8.4-10.2); CARBON DIOXIDE 23 mmol/L (22-30); CHLORIDE 109 mmol/L (98-107); CREATININE RESULT 0.45 mg/dL (0.52-1.25); GLUCOSE 112 mg/dL (75-110); MAGNESIUM 1.7 mg/dL (1.6-2.3); POTASSIUM 3.6 mmol/L (3.6-5.0); SODIUM 140.2 mmol/L (137-145); TOTAL PROTEIN 4.9 g/dL (6.3-8.2)
[2016-08-29] MEDS ORDERED: FUROSEMIDE INJ/PF 40 MG/4 ML SDV ONE (15:16)
[2016-08-29] MEDS ORDERED: FUROSEMIDE INJ/PF 40 MG/4 ML SDV IV ONE (16:00)
--- NOTE | 2016-08-29 16:53 | PDOC CONSULTATION ---
Consultation Consult Date: 08/29/16 Attending physician:: DENILSON NUNN Consult reason:: dyspnea/pna History of Present Illness Admission Date/PCP: 08/26/16 21:20 CHRIS YANEZ MD History of Present Illness: JESUS ALBERTO PARADA is a 31 year old female, basically healthy other than multiple medication allergies, who presents to the emergency room for evaluation of above complaints.This past Saturday, she completed a 10 day course of twice a day Keflex for strep throat. she describes fever to 102.8 along with slightly productive cough for the past 4 days or so. Positive influenza test 2 days ago. Has taken 4 doses of Tamiflu. Frequent nonbloody diarrhea for approximately 18 hours or so. Frequent nonbloody nausea and vomiting for the past 8 hours or so. Vomiting is mostly post tussive in nature. Difficulty tolerating water by mouth.Has been tachycardic in the emergency room, in the 120 to 130 range, with pulse decreasing now after 2 L of IV fluid as a bolus. Pulse in the 150 range when she gets up out of bed to the bathroom. She has now been restricted to bed rest with bedside toilet only, out of bed with assistance only, fall risk. She denies any history of chronic lung disease as a child or as an adolescent. She has had a PPD that was negative the dates unknown she admits to some poor exposure to passive smoke as a child but not as an adult. She herself never smoked. She denies any occupational exposure to significant known respiratory toxins. Her family has several dogs and a cat as well as a hamster. She denies angina-like chest pain sleeps on 2 pillows no PND rare nocturnal cough no edema. She admits to snoring and restless sleep unrestful sleep and daytime somnolence. Past Medical History Cardiac Medical History: Denies: Congestive Heart Failure, DVT, Myocardial Infarction, Hyperlipidema, Hypertension, Pulmonary Embolism Pulmonary Medical History: Denies: Asthma, Chronic Obstructive Pulmonary Disease (COPD) EENT Medical History: Reports: Other - Easy bruising. 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 Denies: Hemorrhagic CVA, Ischemic CVA Comment Only: Migraine - santo HAs no migraine dx Endocrine Medical History: Denies: Diabetes Mellitus Type 1, Diabetes Mellitus Type 2, Hyperthyroidism, Hypothyroidism Renal/ Medical History: Reports: None GI Medical History: Denies: Cirrhosis, Gastroesophageal Reflux Disease, Peptic Ulcer Disease Musculoskeltal Medical History: Denies: Arthritis Skin Medical History: Reports: None Psychiatric Medical History: Denies: Alcohol Dependency, Depression, General Anxiety Disorder, Substance Abuse, Tobacco Dependency Hematology: Reports: Anemia - 2009 iron,bleeding post c section, Other - Easy bruising. Infectious Medical History: Denies: Clostridium Difficile, Hepatitis B, Hepatitis C Past Surgical History Past Surgical History: Reports: Section - x 3, Orthopedic Surgery - rt shoulder bicep repair, Tubal Ligation Denies: Hysterectomy Social History Information Source: Patient, [facility] Records Lives with: Family, Spouse/Significant other Smoking Status: Never Smoker Passive smoke exposure as: Child Frequency of Alcohol Use: Social Hx Recreational Drug Use: No Drugs: None Hx Prescription Drug Abuse: No Do you have pets?: Yes Have you had any respiratory illnesses as a child?: No Have you been exposed to any sick contacts recently?: Yes Have you had any recent respiratory illnesses?: Yes Have you travelled outside of [place] in the past 12 months?: Yes - Advance Directive Resuscitation Status: Full Code Family History Family History: Other - breast CA Parental Family History Reviewed: Yes - Hypertension elevated cholesterol Children Family History Reviewed: Yes - Alive and well no known medical problems Sibling(s) Family History Reviewed.: Yes - Hypertension Medication/Allergy Home Medications: Cephalexin Monohydrate [Keflex 500 mg Capsule] 500 mg PO Q12 08/27/16 D-Methorphan Hb/Prometh HCl [Promethazine-Dm Syrup] 5 ml PO Q6HP PRN 08/27/16 Metronidazole [Flagyl 500 mg Tablet] 500 mg PO Q12 08/27/16 Oseltamivir Phosphate [Tamiflu 75 mg Capsule] 75 mg PO Q12 08/27/16 Allergies/Adverse Reactions: amoxicillin [Amoxicillin] Allergy (Verified 06/14/16 11:32) GI upset azithromycin [From Zithromax] Allergy (Verified 06/14/16 11:32) Hives cefaclor [From Ceclor] Allergy (Verified 06/14/16 11:32) cefprozil [From Cefzil] Allergy (Verified 06/14/16 11:32) codeine [Codeine] Allergy (Verified 02/27/17 04:05) GI upset corn [[place]] Allergy (Verified 06/14/16 11:32) gi upset/hives dextrose [Dextrose] Allergy (Verified 06/14/16 11:32) nausea,skin rash erythromycin base [Erythromycin Base] Allergy (Verified 06/14/16 11:32) hives,gi upset metoclopramide HCl [From Reglan] Allergy (Verified 06/14/16 11:32) "Skin crawls" polysorbate 80 [Polysorbate 80] Allergy (Verified 06/14/16 11:32) povidone-iodine [From Betadine] Allergy (Verified 06/14/16 11:32) chemical rash Soap [From Betadine] Allergy (Verified 06/14/16 11:32) chemical rash sorbitol [Sorbitol] Allergy (Verified 06/14/16 11:32) soy [Soy] Allergy (Verified 06/14/16 11:32) GI upset,rash Sulfa (Sulfonamide Antibiotics) Allergy (Verified 06/14/16 11:32) GI upset amoxicillin trihydrate [From Augmentin] Adverse Reaction (Severe, Verified 06/14 11:32) GI upset Potassium Clavulanate * [From Augmentin] Adverse Reaction (Severe, Verified 11:32) GI upset propofol [Propofol] Adverse Reaction (Severe, Verified 06/14/16 11:32) "EXTREME DIFFICULTY WAKING UP" succinylcholine [Succinylcholine] Adverse Reaction (Unknown, Verified 06/14/16 11:32) "STATES MOTHER HAD A BAD REACTION" TOLD NOT TO TAKE droperidol [From Inapsine] Adverse Reaction (Verified 06/14/16 11:32) Psychosis tygan Allergy (Uncoded 06/14/16 11:32) Physical Exam Vital Signs: Temp Pulse Resp BP Pulse Ox 98.3 F 94 16 119/71 93 08/29/16 07:28 08/29/16 07:28 08/29/16 07:28 08/29/16 07:28 08/29/16 07:28 Intake & Output 08/28/16 08/29/16 08/30/16 06:59 06:59 06:59 Intake Total 1429 2581 Output Total 1500 Balance 1429 1081 Weight 74.2 kg 78.2 kg General appearance: PRESENT: no acute distress, cooperative, well-developed, well-nourished Head exam: PRESENT: atraumatic, normocephalic Eye exam: PRESENT: conjunctiva pale, EOMI Mouth exam: PRESENT: moist, neck supple, tongue midline, other - Some erythema but no exudates Neck exam: ABSENT: carotid bruit, JVD, lymphadenopathy, thyromegaly Respiratory exam: PRESENT: decreased breath sounds, prolonged expiratory phas, rhonchi, unlabored, wheezes Cardiovascular exam: PRESENT: RRR, +S1, +S2 Pulses: PRESENT: normal radial pulses GI/Abdominal exam: PRESENT: normal bowel sounds, soft, other - Questionable suprapubic and right upper quadrant tenderness. ABSENT: distended, guarding, mass, organolmegaly, rebound, tenderness Rectal exam: PRESENT: deferred Gentrourinary exam: PRESENT: indwelling catheter Musculoskeletal exam: PRESENT: normal inspection Neurological exam: PRESENT: awake Psychiatric exam: PRESENT: normal mood Skin exam: PRESENT: dry, intact, warm Results Laboratory Results: 08/28/16 05:07 08/27/16 06:45 Impressions: Chest X-Ray 08/26/16 16:36 IMPRESSION: NO SIGNIFICANT RADIOGRAPHIC FINDING IN THE CHEST. Lung Scan-VQ NM 08/28/16 16:13 IMPRESSION: NORMAL VENTILATION-PERFUSION LUNG SCAN. NEGATIVE FOR PULMONARY EMBOLI. Chest CT 08/29/16 10:14 IMPRESSION: There is diffuse patchy ground-glass and parenchymal densities noted throughout the lungs concerning for underlying edema and/or infectious infiltrate. There is prominence of the interlobular septa throughout the lungs most notably in the bases which is suggestive from underlying edema. Small bilateral pleural effusions are identified with adjacent compressive atelectasis. Assessment & Plan - Diagnosis (1) Abnormal CT scan, chest Is this a current diagnosis for this admission?: YesPlan: Abnormal CT scan while some of this abnormality may be due for an infectious etiology certainly some of it is due to the volume overload as the patient is 8.2 kg greater in weight today than she was 48 hours ago she apparently was volume resuscitated. Strongly agree with addition of Levaquin for antibiotic regimen particularly in the face of her extended allergies will initiate some chest physiotherapy hoping to get a viable sputum sample (2) Left otitis media Qualifiers: Otitis media type: suppurative Chronicity: acute Recurrence: not specified as recurrent Spontaneous tympanic membrane rupture: without spontaneous rupture Qualified Code(s): H66.002 - Acute suppurative otitis media without spontaneous rupture of ear drum, left ear Is this a current diagnosis for this admission?: YesPlan: As per ENT (3) Sepsis Is this a current diagnosis for this admission?: No (4) Thrombocytopenia Is this a current diagnosis for this admission?: YesPlan: Less than 100,000 platelets not appear to be getting heparin or heparin products
--- NOTE | 2016-08-29 20:37 | EKG REPORT ---
SEVERITY:- BORDERLINE ECG - SINUS RHYTHM INFERIOR Q WAVES, PROBABLY NORMAL VARIATION : Confirmed by: Suman Milian MD 29-Aug-2016 20:37:02
[2016-08-29] MEDS: IPRATROPIUM/ALBUTEROL 0.5-2.5 MG/3 ML AMPUL NEB PRN (20:58)
[2016-08-29] MEDS: METHYLPREDNISOLONE INJ 40 MG/1 ML SDV IV SCH (21:30)
[2016-08-29] MEDS: FUROSEMIDE INJ/PF 20 MG/2 ML SDV IV SCH (21:30)
[2016-08-29] MEDS: GUAIFENESIN 600 MG TABLET.SA PO SCH (21:31)
[2016-08-29] MEDS ORDERED: FUROSEMIDE INJ/PF 40 MG/4 ML SDV IV SCH (22:00)
[2016-08-29] MEDS ORDERED: METHYLPREDNISOLONE INJ 125 MG/2 ML SDV IV SCH ×3 (22:00)
[2016-08-30] MEDS: MORPHINE SULFATE 10 MG/ML INJ IV PRN (01:21)
[2016-08-30] MEDS: BENZONATATE 100 MG CAPSULE PO SCH ×3 (06:48→21:46)
--- NOTE | 2016-08-30 09:13 | CONSULTATION REPORT E ---
Consultation Report NAME: JESUS ALBERTO PARADA : 1985 AGE: 31Y DATE: 08/29/2016 334 A TO: TALAT MAYES M.D. FROM: FAMILIA HODGES M.D. Requesting Physician ATTENDING PHYSICIAN: Dr. Dulce Hunter REASON FOR CONSULTATION: Left otalgia and left hearing loss. HISTORY OF PRESENT ILLNESS: This is a previously well 31-year-old girl originally from the [place], [place] area who presented to the [facility] Emergency Department on 08/26/2016. She had a flu-like illness progressing to cough and fever, but prior to that time, she had been treated for what appeared to be strep throat. On or around 08/12/2016, she was placed on a course of Keflex (cephalexin) for this. She completed that course some time around 08/22/2016. It was after this that she started to develop the productive cough, and on or around 08/24/2016, she had a positive influenza test. She then received 4 doses of Tamiflu. However, the fever and cough all seemed to INcrease, and not defervesce. She then developed nausea, vomiting, and diarrhea. It was for this reason that she presented to the emergency department. She described her diarrhea as not having been bloody, but it had been very persistent for some 18 hours or so prior to presentation to the emergency department. The vomiting had been going on for about 8 hours. She describes that occurring after a major coughing spell, but she was having difficulty even tolerating fluids without going back into vomiting. In the emergency department, it was noted that she was tachycardic and therefore she was given a bolus of 2 L of intravenous fluids, which brought her pulse down to around 120 per minute from about 150 per minute. However, her pulse would go back up again every time she got out of bed to go to the bathroom and so she was placed on bedrest. In the emergency department, she was noted to have an acute left otitis media. The left tympanic membrane was noted to be bulging with purulence, and even the right tympanic membrane was noted to be erythematous. However, the rest of the examination in the ED was essentially noncontributory. LABORATORY: Basic lab test in the emergency department demonstrated a borderline increased white count of 10,700, with a left shift. Hemoglobin: 14.9 grams. Hematocrit: 43.9%. BUN and electrolytes: within normal limits. Of note was the thrombocytopenia - down to 84,000. Her temperature was 99.8 degrees Fahrenheit. Lactic acid of 2.3 was recorded, which is elevated, and urine protein was high at 100, and there was a trace of ketones in her urine. Magnesium level was low at 1.2. TREATMENT: She was then admitted to [address] [place] [address]. Stools were sent off for culture, particularly to rule out C. difficile. This has now come back growing beta hemolytic strep group A. Chest x-ray on admission was unremarkable. EKG likewise was basically unremarkable. (These have been reviewed by me.) She was treated with intravenous fluids, IV Rocephin and oral doxycycline. PROGRESS: The next day, 03/27/2017, it is noted that her white count had decreased slightly to 9.9 thousand. Hemoglobin has decreased down to 12 grams, with hematocrit now below normal at 35.6%, and her thrombocytopenia had apparently worsened to 63,000. Electrolytes showed a mild increase in chloride to 111. These may all represent hemodilution. On 08/28/2016, she was hypoxemic with oxygen saturation of 86% on room air, although this improved adequately with delivery of oxygen via nasal cannulae. She continued to have left otalgia and left hearing loss, but there was no nausea or vomiting and no pleuritic chest pain. Temperature was down to 98.8 degrees Fahrenheit. She persisted in mild tachycardia of 105 per minute. Exam appeared to reveal a dull and ecchymotic left tympanic membrane with a small 2 mm perforation noted with normal-appearing right ear. Labs that day demonstrated a further decrease in the white count to 6800, and the hemoglobin has decreased to 11.1 grams and the hematocrit is now down to 32%, but the thrombocytopenia appeared to have improved slightly to 80,000. Because of the tympanic membrane changes, Dr. Hunter asked for otolaryngology involvement to consider topical options for treatment. PAST MEDICAL HISTORY: Headaches without a migraine diagnosis. Ovarian cyst Nephrolithiasis. PAST SURGICAL HISTORY: 1. sections x3. 2. Right shoulder biceps repair. 3. Tubal ligation. This was done laparoscopically. FAMILY HISTORY: Essentially noncontributory. SOCIAL HISTORY: Reveals that she is originally from [place]. 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 She lives off of [facility]. Her second child has cerebral palsy and is a special needs child. There is a cat at home and 3 outdoor dogs. No smokers in the home. 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 MEDICATIONS: Includes current Rocephin and doxycycline. Recent exposure to Tamiflu and cephalexin. ALLERGIES: There is a long list of medication allergies includin. AMOXICILLIN. 2. AZITHROMYCIN. 3. CEFACLOR. 4. CEFPROZIL. 5. CODEINE. 6. DEXTROSE. 7. ERYTHROMYCIN. 8. METOCLOPRAMIDE. 9. POLYSORBATE 80. 10. POVIDONE IODINE. 11. SORBITOL. 12. SULFONAMIDE ANTIBIOTICS. 13. AUGMENTIN. 14. PROPOFOL. 15. SUCCINYLCHOLINE, possibly because her mother had a bad reaction to it. 16. DROPERIDOL. 17. TIGAN. 18. Additionally, the foods CORN and SOY. 19. SOME SOAPS. SYSTEMS REVIEW: CENTRAL NERVOUS SYSTEM: She has the headaches, but has never received a migraine diagnosis. RESPIRATORY: She denies history of asthma, pneumonia. CARDIOVASCULAR: She denies any cardiovascular disease in the past. GASTROINTESTINAL: She denies reflux, heartburn, indigestion, change in bowel habits (until this particular incident). GENITOURINARY: She has no incontinence and her periods have been regular. MUSCULOSKELETAL: She is status post right shoulder surgery. Otherwise, no issues. DERMATOLOGIC: No issues. ENDOCRINE: She denies diabetes or thyroid disorders. HEMATOLOGIC: There was an issue with anemia 5 years ago after one of her C-sections. She additionally reports easy bruising. PSYCHIATRIC: She denies anxiety, depression. PHYSICAL EXAMINATION: GENERAL: Reveals an ill-looking woman of 31 with curly, dark hair who is seen lying semirecumbent in the hospital bed. VITAL SIGNS: Included heart rate of approximately 100 per minute. BP is 125/62. Respiratory rate is 18. Oxygen saturations 100% oxygen delivered by nasal cannulae. HEENT/NECK: In the head and neck region: pupils are equal and reactive to light. Extraocular movements are full and equal. No nystagmus is detected. The nasal cannulae were removed. The nasal cavity is open. The mucosa does look wet. There are 2 areas, one on either side of the nasal septum, where she may have had recent epistaxis. She does report blood- streaking when she blows her nose. Oral exam reveals no obvious abnormality in the lips, mouth, tongue, teeth, palate, and pharynx. The tonsils are surgically absent. External canals are clear. The right tympanic membrane is unremarkable. The left tympanic membrane has evidently healed. The scab or crust of blood appears to have moved away from the tympanic membrane. There is mild inflammation of the tympanic membrane itself and there is gold-colored fluid seen behind the ear drum. Fork testing at 512 Hz localized the fork in the left ear. She gave a negative Rinne on the left, and a positive one on the right, and most importantly, when the fork was placed on the right mastoid, the patient heard it on the left side, suggesting a large interaural difference in hearing acuity. Cervical exam is benign without any evident lymphadenopathy or thyromegaly. IMPRESSION: 1. Resolving upper respiratory infection, likely a mix of bacterial, viral, and/or mycoplasma. 2. Resolving left acute otitis media. 3. She currently has a left serous otitis media. 4. Resolving diarrhea. PLAN: The treatment of the left middle ear fluid, which does not now appear to be infected, should be conservative. The expectation is that this will clear, spontaneously, if left untreated, in the order of 4-12 weeks. The otolaryngology literature shows no statistical advantage to treating such patients with antibiotics, decongestants, or antihistamine medications. Statistically, there is no difference. Myringotomy is reserved for obtaining material for culture in the face of unresolved infection, or if there is a pressing need for improvement in hearing, and should otherwise be reserved until and unless the presence of middle ear fluid has been shown to have persisted for longer than 90 days. We would appreciate notification to [facility] of the date of her discharge as she should be followed by this facility. She will require outpatient audiometric assessment. Should there be any change in her otolaryngological symptoms and signs, please do not hesitate to get in contact with this office again, telephone number [phone]. DICTATING PHYSICIAN: TALAT MAYES M.D. [id number] PHY#: [id number] ID: [id number] JOB#: [id number] ACCT: [id number] cc:TALAT MAYES M.D. > IFTIKHAR
[2016-08-30] MEDS: GUAIFENESIN 600 MG TABLET.SA PO SCH ×2 (09:25→21:46)
[2016-08-30] MEDS: FUROSEMIDE INJ/PF 20 MG/2 ML SDV IV SCH ×2 (09:25→21:48)
[2016-08-30] MEDS: METHYLPREDNISOLONE INJ 40 MG/1 ML SDV IV SCH ×2 (09:25→21:48)
[2016-08-30] MEDS: OSELTAMIVIR PHOSPHATE 75 MG CAPSULE PO SCH (09:26)
[2016-08-30] MEDS: CEFTRIAXONE SODIUM 1,000 MG in NORMAL SALINE 50 ML IV SCH (09:26)
[2016-08-30] MEDS: LEVOFLOXACIN 750 MG TABLET PO SCH (11:24)
[2016-08-30] MEDS ORDERED: ONDANSETRON HCL INJ/PF 4 MG/2 ML SDV IV PRN (14:36)
--- NOTE | 2016-08-30 17:12 | PDOC PROGRESS REPORT ---
Subjective Progress Note for:: 08/30/16 Subjective:: Patient is a lot more comfortable today She did diurese quite a lot since Lasix was started And is oxygenating adequately on just 2 L nasal cannula Echocardiogram is still pending Had no fever no chills and remains hemodynamically stable Physical Exam Vital Signs: Temp Pulse Resp BP Pulse Ox 98.1 F 74 16 117/74 96 08/30/16 16:01 08/30/16 16:01 08/30/16 16:01 08/30/16 16:01 08/30/16 16:01 Pulse Oximeter Continuous Start: 08/29/16 11: 39 Freq: RTQ4 Status: Active Document 08/30/16 11:50 HCR (Rec: 08/30/16 12:42 HCR [id number]) Pulse Oximetry Assessment Oxygen Saturation (92-100) 93 Oxygen Flow Rate (L/min) 4 Oxygen Delivery Method Nasal Cannula Equipment Usage Equipment in Use Continuous SpO2 Machine # n Intake & Output 08/29/16 08/30/16 08/31/16 00:59 00:59 00:59 Intake Total 2302 3357 600 Output Total 400 2000 Balance 1902 1357 600 Weight 74.2 kg 78.2 kg 69.7 kg General appearance: PRESENT: no acute distress, well-developed, well-nourished Head exam: PRESENT: atraumatic, normocephalic Eye exam: PRESENT: conjunctiva pink, EOMI, PERRLA. ABSENT: scleral icterus Ear exam: PRESENT: normal external ear exam Mouth exam: PRESENT: moist, tongue midline Neck exam: ABSENT: carotid bruit, JVD, lymphadenopathy, thyromegaly Respiratory exam: PRESENT: rales - At the bases, wheezes. ABSENT: rhonchi Cardiovascular exam: PRESENT: RRR. ABSENT: diastolic murmur, rubs, systolic murmur Pulses: PRESENT: normal dorsalis pedis pul Vascular exam: PRESENT: normal capillary refill GI/Abdominal exam: PRESENT: normal bowel sounds, soft. ABSENT: distended, guarding, mass, organolmegaly, rebound, tenderness Rectal exam: PRESENT: deferred Extremities exam: PRESENT: full ROM. ABSENT: calf tenderness, clubbing, pedal edema Neurological exam: PRESENT: alert, awake, oriented to person, oriented to place , oriented to time, oriented to situation, CN II-XII grossly intact. ABSENT: motor sensory deficit Psychiatric exam: PRESENT: appropriate affect, normal mood. ABSENT: homicidal ideation, suicidal ideation Skin exam: PRESENT: dry, intact, warm. ABSENT: cyanosis, rash Results Laboratory Results: 08/29/16 14:10 08/29/16 14:10 Impressions: Chest X-Ray 08/26/16 16:36 IMPRESSION: NO SIGNIFICANT RADIOGRAPHIC FINDING IN THE CHEST. Lung Scan-VQ NM 08/28/16 16:13 IMPRESSION: NORMAL VENTILATION-PERFUSION LUNG SCAN. NEGATIVE FOR PULMONARY EMBOLI. Chest CT 08/29/16 10:14 IMPRESSION: There is diffuse patchy ground-glass and parenchymal densities noted throughout the lungs concerning for underlying edema and/or infectious infiltrate. There is prominence of the interlobular septa throughout the lungs most notably in the bases which is suggestive from underlying edema. Small bilateral pleural effusions are identified with adjacent compressive atelectasis. Assessment & Plan - Diagnosis (1) Influenza Is this a current diagnosis for this admission?: YesPlan: Patient had the full course of Tamiflu ; it was discontinued (2) Left otitis media Qualifiers: Otitis media type: suppurative Chronicity: acute Recurrence: not specified as recurrent Spontaneous tympanic membrane rupture: without spontaneous rupture Qualified Code(s): H66.002 - Acute suppurative otitis media without spontaneous rupture of ear drum, left ear Is this a current diagnosis for this admission?: Yes (3) Tachycardia Is this a current diagnosis for this admission?: Yes (4) Pneumonia Qualifiers: Pneumonia type: due to unspecified organism Laterality: unspecified laterality Lung location: unspecified part of lung Qualified Code(s) : J18.9 - Pneumonia, unspecified organism Is this a current diagnosis for this admission?: Yes (5) Thrombocytopenia Is this a current diagnosis for this admission?: YesPlan: There is no evidence of DIC Platelet count is somewhat increased at 90,000 - Time Time Spent with patient: Continue present management Continue diuresis with Lasix until patient is back to her baseline weight Within: within 48 hours
--- NOTE | 2016-08-30 18:21 | XCELERA REPORT ---
[address] [address] Transthoracic Echocardiogram Report Name: JESUS ALBERTO PARADA Age: 31 yrs Gender: Female : 1985 Patient Status: Inpatient Patient Location: 3S\S\334\S\A Study Date: 08/30/2016 08:43 AM Height: 65 in Weight: 172 lb BSA: 1.9 m2 Procedure: A two-dimensional transthoracic echocardiogram with color flow and Doppler was performed. The study was technically difficult with many images being suboptimal in quality. Reason For Study: SOB History: Shortness of breath. Ordering Physician: DENILSON NUNN Performed By: Kerri Ramos Interpretation Summary Shortness of breath The left ventricle is normal in size. There is normal left ventricular wall thickness. LV EF is 60% Left ventricular systolic function is normal. Doppler measurements suggest normal left ventricular diastolic function The left ventricular wall motion is normal. The right ventricle is grossly normal size. The left atrial size is normal. There is no mitral valve stenosis. There is no evidence of mitral valve prolapse. There is a trace amount of mitral regurgitation There is no aortic valve stenosis There is no LVOT obstruction. No aortic regurgitation is present. There is no tricuspid stenosis. There is a moderate amount of tricuspid regurgitation There is mild pulmonary hypertension by echo RVSP is 42 mm of Hg , with RA mean of 10. There is no pericardial effusion. MMode/2D Measurements \T\ Calculations RVDd: 3.2 cm LVIDd: 4.4 cm FS: 30.9 % Ao root diam: 2.6 cm IVSd: 0.78 cm LVIDs: 3.0 cm EDV(Teich): 88.1 ml LVPWd: 0.82 cmESV(Teich): 36.3 ml Ao root area: 5.4 cm2 EF(Teich): 58.8 % LA dimension: 3.7 cm LVOT diam: 1.9 cm LVOT area: 2.8 cm2 Doppler Measurements \T\ Calculations MV E max kev: MV P1/2t max kev: Ao V2 max: LV V1 max P.5 cm/sec 117.2 cm/sec 131.9 cm/sec 4.0 mmHg MV A max kev: MV P1/2t: 48.2 msec Ao max PG: LV V1 max: 64.2 cm/sec MVA(P1/2t): 4.6 cm2 7.0 mmHg 100.2 cm/sec MV E/A: 1.8 MV dec slope: ZACK(V,D): 2.1 cm2 712.1 cm/sec2 MV dec time: 0.18 sec PA V2 max: TR max kev: 84.9 cm/sec 282.3 cm/sec PA max PG: TR max P.9 mmHg 2.9 mmHg Left Ventricle The left ventricle is normal in size. There is normal left ventricular wall thickness. LV EF is 60%. Left ventricular systolic function is normal. Doppler measurements suggest normal left ventricular diastolic function. The left ventricular wall motion is normal. There is no thrombus. There is no ventricular septal defect visualized. Right Ventricle The right ventricle is grossly normal size. Atria The right atrium is normal. The left atrial size is normal. The interatrial septum is intact with no evidence for an atrial septal defect. Mitral Valve There is no evidence of mitral valve prolapse. There is no vegetation seen on the mitral valve. There is no mitral valve stenosis. There is a trace amount of mitral regurgitation. Aortic Valve There is no aortic valvular vegetation. There is no aortic valve stenosis. There is no LVOT obstruction. No aortic regurgitation is present. Tricuspid Valve There is no tricuspid stenosis. There is a moderate amount of tricuspid regurgitation. There is mild pulmonary hypertension by echo. RVSP is 42 mm of Hg , with RA mean of 10. Pulmonic Valve There is no pulmonic valvular stenosis. There is no pulmonic valvular regurgitation. Great Vessels The aortic root is normal size. Effusions There is no pericardial effusion. : DENILSNO NUNN > Johana Hanson
[2016-08-30] MEDS: ACETAMINOPHEN 325 MG TABLET PO PRN (19:24)
[2016-08-31] MEDS: BENZONATATE 100 MG CAPSULE PO SCH ×2 (06:10→13:13)
[2016-08-31] MEDS: GUAIFENESIN 600 MG TABLET.SA PO SCH (09:19)
[2016-08-31] MEDS: CEFTRIAXONE SODIUM 1,000 MG in NORMAL SALINE 50 ML IV SCH (09:20)
[2016-08-31] MEDS: METHYLPREDNISOLONE INJ 40 MG/1 ML SDV IV SCH (11:11)
[2016-08-31] MEDS: LEVOFLOXACIN 750 MG TABLET PO SCH (11:11)
[2016-08-31] MEDS: FUROSEMIDE INJ/PF 20 MG/2 ML SDV IV SCH (11:11)
[2016-08-31 11:36] VITALS: BP 130/73
--- NOTE | 2016-09-01 17:59 | PDOC DISCHARGE SUMMARY ---
General - Admit/Disc Date/PCP Admission Date/Primary Care Provider: 08/26/16 21:20 CHRIS YANEZ MD Discharge Date: 08/31/16 - Discharge Diagnosis (1) Influenza Is this a current diagnosis for this admission?: YesSummary: Patient received a full course of Tamiflu for 5 days (2) Tachycardia Is this a current diagnosis for this admission?: YesSummary: Sinus tachycardia on admission associated with hypoxemia. Tachycardia resolved at time of discharge (3) Pneumonia Is this a current diagnosis for this admission?: YesSummary: Associated with hypoxemia Patient was treated with broad-spectrum antibiotics including ceftriaxone and Levaquin She was discharged on vantin and Levaquin (4) Thrombocytopenia Is this a current diagnosis for this admission?: YesSummary: Was not associated with DIC Dictated improved at time of discharge (5) Hearing loss Is this a current diagnosis for this admission?: YesSummary: Secondary to otitis media left ear Patient was referred to ENT (6) Otitis media, purulent, acute, with spontaneous rupture of TM Is this a current diagnosis for this admission?: YesSummary: Small tympanic rupture on examination As above patient was referred to ENT for follow-up 10 day antibiotic prescription was given discharge treat the otitis media for at least a total of 15 days (7) Fluid overload Is this a current diagnosis for this admission?: YesSummary: Patient was extremely dyspneic 3 days prior to discharge CT of the chest was consistent with fluid overload Patient responded to IV Lasix and at time of discharge did not need supplemental O2 - Additional Information Resuscitation Status: Full Code Discharge Diet: As Tolerated Discharge Activity: Activity As Tolerated, Balance Activity w/Rest, No Lifting/ Push/Pulling Home Medications: Acidoph/L.bulg/Bif.b/S.thermop [Bacid Caplet] 1 tab PO BID #20 tablet 08/31/16 Albuterol Sulfate [Proair HFA] 2 puff IH Q4 PRN #1 inhaler 08/31/16 Benzonatate [Tessalon Perles 100 mg Capsule] 100 mg PO Q8 #30 capsule 08/31/16 Cefpodoxime Proxetil [Vantin 200 mg Tablet] 1 tab PO Q12 #20 tab 08/31/16 Guaifenesin [Mucinex Sr 600 mg Tablet.sa] 600 mg PO Q12 #20 tablet.sa 08/31/16 Levofloxacin [Levaquin 750 mg Tablet] 750 mg PO NOON #10 tablet 08/31/16 History of Present Illness Patient complains of: fever cough diarrhea History of Present Illness: JESUS ALBERTO PARADA is a 31 year old female, basically healthy other than multiple medication allergies, who presents to the emergency room for evaluation of above complaints. This past Saturday, she completed a 10 day course of twice a day Keflex for strep throat. she describes fever to 102.8 along with slightly productive cough for the past 4 days or so. Positive influenza test 2 days ago. Has taken 4 doses of Tamiflu. Frequent nonbloody diarrhea for approximately 18 hours or so. Frequent nonbloody nausea and vomiting for the past 8 hours or so. Vomiting is mostly post tussive in nature. Difficulty tolerating water by mouth. Has been tachycardic in the emergency room, in the 120 to 130 range, with pulse decreasing now after 2 L of IV fluid as a bolus. Pulse in the 150 range when she gets up out of bed to the bathroom. She has now been restricted to bed rest with bedside toilet only, out of bed with assistance only, fall risk. Mild abdominal discomfort with her nausea only. Hospital Course Hospital Course: Patient was admitted with otitis media and pneumonia lung scan was negative for PE CT of the chest showed severe fluid overload Initially patient was extremely hypoxemic and tachycardic Her condition improved with antibiotics and lasix Echocardiogram showed normal LVEF and no cardiomyopathy Patient likely had fluid overload secondary to receive fluid resuscitation on earlier admission She did have significant hearing loss left ear and was evaluated by Dr. Polk ENT Patient will follow-up with primary care and ENT after discharge Physical Exam Vital Signs: Temp Pulse Resp BP Pulse Ox 98.1 F 55 L 16 130/73 H 96 08/31/16 15:32 08/31/16 15:32 08/31/16 15:32 08/31/16 15:32 08/31/16 15:32 Pulse Oximeter Continuous Start: 08/29/16 11: 39 Freq: RTQ4 Status: Complete Document 08/30/16 11:50 HCR (Rec: 08/30/16 12:42 HCR [id number]) Pulse Oximetry Assessment Oxygen Saturation (92-100) 93 Oxygen Flow Rate (L/min) 4 Oxygen Delivery Method Nasal Cannula Equipment Usage Equipment in Use Continuous SpO2 Machine # n Intake & Output 08/31/16 09/01/16 09/02/16 00:59 00:59 00:59 Intake Total 2215 694 Output Total 1000 Balance 2215 -306 Weight 69.7 kg 68.1 kg General appearance: PRESENT: no acute distress Head exam: PRESENT: atraumatic, normocephalic Eye exam: PRESENT: conjunctiva pink, EOMI, PERRLA. ABSENT: scleral icterus Neck exam: ABSENT: carotid bruit, JVD, lymphadenopathy, thyromegaly Respiratory exam: PRESENT: clear to auscultation lelia. ABSENT: rales, rhonchi, wheezes Cardiovascular exam: PRESENT: bradycardia, RRR. ABSENT: diastolic murmur, rubs , systolic murmur GI/Abdominal exam: PRESENT: normal bowel sounds, soft. ABSENT: distended, guarding, mass, organolmegaly, rebound, tenderness Neurological exam: PRESENT: alert, awake, oriented to person, oriented to place , oriented to time, oriented to situation, CN II-XII grossly intact. ABSENT: motor sensory deficit Results Laboratory Results: 08/29/16 14:10 08/29/16 14:10 08/27/16 01:04 Blood Blood Culture - Final NO GROWTH IN 5 DAYS 08/26/16 23:59 Blood Blood Culture - Final NO GROWTH IN 5 DAYS Labs- Entire Visit 08/26/16 08/26/16 08/26/16 15:35 15:35 15:35 WBC 10.7 H RBC 5.21 Hgb 14.9 Hct 43.9 MCV 84 MCH 28.7 MCHC 34.0 RDW 13.6 Plt Count 82 L Total Counted 100 Seg Neutrophils % Not Reportable Seg Neuts % (Manual) 84 H Band Neutrophils % 14 H Lymphocytes % Not Reportable Lymphocytes % (Manual) 1 L Monocytes % Not Reportable Monocytes % (Manual) 1 L Eosinophils % Not Reportable Eosinophils % (Manual) 0 Basophils % Not Reportable Basophils % (Manual) 0 Absolute Neutrophils Not Reportable Abs Neuts (Manual) 10.5 H Absolute Lymphocytes Not Reportable Abs Lymphs (Manual) 0.1 L Absolute Monocytes Not Reportable Abs Monocytes (Manual) 0.1 Absolute Eosinophils Not Reportable Absolute Eos (Manual) 0.0 Absolute Basophils Not Reportable Abs Basophils (Manual) 0.0 Toxic Granulation Toxic Vacuolation Platelet Comment DECREASED Poikilocytosis Homer Cells RBC Morph Comment NORMO-CYTIC/CHROMIC PT INR Fibrinogen Fibrin Degrad Products D-Dimer Sodium 139.8 Potassium 4.1 Chloride 102 Carbon Dioxide 26 Anion Gap 12 BUN 10 Creatinine 0.77 Est GFR ( Amer) > 60 Est GFR (Non-Af Amer) > 60 Glucose 99 Lactic Acid Calcium 8.9 Magnesium Total Bilirubin 0.9 Direct Bilirubin 0.0 AST 31 ALT 36 Alkaline Phosphatase 87 Total Protein 6.8 Albumin 4.1 Serum HCG, Qual NEGATIVE Urine Color Urine Appearance Urine pH Ur Specific Polson Urine Protein Urine Glucose (UA) Urine Ketones Urine Blood Urine Nitrite Urine Bilirubin Urine Urobilinogen Ur Leukocyte Esterase Urine WBC (Auto) Urine RBC (Auto) U Hyaline Cast (Auto) Urine Bacteria (Auto) Squamous Epi Cells Auto Urine Mucus (Auto) Urine Ascorbic Acid C. difficile Tox (PCR) Slides for Path Review PATHOLOGIST REVIEWED 08/26/16 08/26/16 08/26/16 15:35 15:35 16:33 WBC RBC Hgb Hct MCV MCH MCHC RDW Plt Count Total Counted Seg Neutrophils % Seg Neuts % (Manual) Band Neutrophils % Lymphocytes % Lymphocytes % (Manual) Monocytes % Monocytes % (Manual) Eosinophils % Eosinophils % (Manual) Basophils % Basophils % (Manual) Absolute Neutrophils Abs Neuts (Manual) Absolute Lymphocytes Abs Lymphs (Manual) Absolute Monocytes Abs Monocytes (Manual) Absolute Eosinophils Absolute Eos (Manual) Absolute Basophils Abs Basophils (Manual) Toxic Granulation Toxic Vacuolation Platelet Comment Poikilocytosis Nando Cells RBC Morph Comment PT INR Fibrinogen Fibrin Degrad Products D-Dimer Sodium Potassium Chloride Carbon Dioxide Anion Gap BUN Creatinine Est GFR ( Amer) Est GFR (Non-Af Amer) Glucose Lactic Acid Calcium Magnesium 1.2 L* Total Bilirubin Direct Bilirubin AST ALT Alkaline Phosphatase Total Protein Albumin Serum HCG, Qual Urine Color DARK YELLOW Urine Appearance CLOUDY Urine pH 5.0 Ur Specific Polson 1.038 Urine Protein 100 H Urine Glucose (UA) NEGATIVE Urine Ketones TRACE H Urine Blood NEGATIVE Urine Nitrite NEGATIVE Urine Bilirubin NEGATIVE Urine Urobilinogen NEGATIVE Ur Leukocyte Esterase NEGATIVE Urine WBC (Auto) 6 Urine RBC (Auto) 4 U Hyaline Cast (Auto) 4 Urine Bacteria (Auto) TRACE Squamous Epi Cells Auto 8 Urine Mucus (Auto) MOD Urine Ascorbic Acid NEGATIVE C. difficile Tox (PCR) NEGATIVE Slides for Path Review 08/26/16 08/27/16 08/27/16 20:20 01:07 02:10 WBC RBC Hgb Hct MCV MCH MCHC RDW Plt Count Total Counted Seg Neutrophils % Seg Neuts % (Manual) Band Neutrophils % Lymphocytes % Lymphocytes % (Manual) Monocytes % Monocytes % (Manual) Eosinophils % Eosinophils % (Manual) Basophils % Basophils % (Manual) Absolute Neutrophils Abs Neuts (Manual) Absolute Lymphocytes Abs Lymphs (Manual) Absolute Monocytes Abs Monocytes (Manual) Absolute Eosinophils Absolute Eos (Manual) Absolute Basophils Abs Basophils (Manual) Toxic Granulation Toxic Vacuolation Platelet Comment Poikilocytosis Nando Cells RBC Morph Comment PT INR Fibrinogen Fibrin Degrad Products D-Dimer Sodium 136.7 L Potassium 4.4 Chloride 108 H Carbon Dioxide 19 L Anion Gap 10 BUN 6 L Creatinine 0.72 Est GFR ( Amer) > 60 Est GFR (Non-Af Amer) > 60 Glucose 77 Lactic Acid 2.3 H 2.7 H Calcium 7.2 L Magnesium Total Bilirubin Direct Bilirubin AST ALT Alkaline Phosphatase Total Protein Albumin Serum HCG, Qual Urine Color Urine Appearance Urine pH Ur Specific Polson Urine Protein Urine Glucose (UA) Urine Ketones Urine Blood Urine Nitrite Urine Bilirubin Urine Urobilinogen Ur Leukocyte Esterase Urine WBC (Auto) Urine RBC (Auto) U Hyaline Cast (Auto) Urine Bacteria (Auto) Squamous Epi Cells Auto Urine Mucus (Auto) Urine Ascorbic Acid C. difficile Tox (PCR) Slides for Path Review 08/27/16 08/27/16 08/28/16 06:45 06:45 05:07 WBC 9.9 RBC 4.20 Hgb 12.0 D Hct 35.6 L MCV 85 MCH 28.7 MCHC 33.8 RDW 13.9 Plt Count 63 L Total Counted 100 Seg Neutrophils % Not Reportable Seg Neuts % (Manual) 88 H Band Neutrophils % 8 H Lymphocytes % Not Reportable Lymphocytes % (Manual) 2 L Monocytes % Not Reportable Monocytes % (Manual) 2 L Eosinophils % Not Reportable Eosinophils % (Manual) 0 Basophils % Not Reportable Basophils % (Manual) 0 Absolute Neutrophils Not Reportable Abs Neuts (Manual) 9.5 H Absolute Lymphocytes Not Reportable Abs Lymphs (Manual) 0.2 L Absolute Monocytes Not Reportable Abs Monocytes (Manual) 0.2 Absolute Eosinophils Not Reportable Absolute Eos (Manual) 0.0 Absolute Basophils Not Reportable Abs Basophils (Manual) 0.0 Toxic Granulation 1+ Toxic Vacuolation PRESENT Platelet Comment DECREASED Poikilocytosis SLIGHT Nando Cells SLIGHT RBC Morph Comment PT INR Fibrinogen Fibrin Degrad Products D-Dimer Sodium 137.7 Potassium 4.3 Chloride 111 H Carbon Dioxide 19 L Anion Gap 8 BUN 5 L Creatinine 0.62 Est GFR ( Amer) > 60 Est GFR (Non-Af Amer) > 60 Glucose 84 Lactic Acid Calcium 7.5 L Magnesium 1.7 Total Bilirubin Direct Bilirubin AST ALT Alkaline Phosphatase Total Protein Albumin Serum HCG, Qual Urine Color Urine Appearance Urine pH Ur Specific Polson Urine Protein Urine Glucose (UA) Urine Ketones Urine Blood Urine Nitrite Urine Bilirubin Urine Urobilinogen Ur Leukocyte Esterase Urine WBC (Auto) Urine RBC (Auto) U Hyaline Cast (Auto) Urine Bacteria (Auto) Squamous Epi Cells Auto Urine Mucus (Auto) Urine Ascorbic Acid C. difficile Tox (PCR) Slides for Path Review 08/28/16 08/29/16 08/29/16 05:07 14:10 14:10 WBC 6.8 4.2 RBC 3.83 3.81 Hgb 11.1 L 10.9 L Hct 32.0 L 32.1 L MCV 84 84 MCH 29.1 28.6 MCHC 34.8 34.0 RDW 13.8 14.1 H Plt Count 80 L 97 L Total Counted Seg Neutrophils % 84.7 H 82.0 H Seg Neuts % (Manual) Band Neutrophils % Lymphocytes % 9.7 L 11.0 L Lymphocytes % (Manual) Monocytes % 3.7 4.3 Monocytes % (Manual) Eosinophils % 1.6 2.5 Eosinophils % (Manual) Basophils % 0.3 0.2 Basophils % (Manual) Absolute Neutrophils 5.7 3.4 Abs Neuts (Manual) Absolute Lymphocytes 0.7 0.5 Abs Lymphs (Manual) Absolute Monocytes 0.3 0.2 Abs Monocytes (Manual) Absolute Eosinophils 0.1 0.1 Absolute Eos (Manual) Absolute Basophils 0.0 0.0 Abs Basophils (Manual) Toxic Granulation Toxic Vacuolation Platelet Comment Poikilocytosis Nando Cells RBC Morph Comment PT 13.4 INR 0.99 Fibrinogen 392 Fibrin Degrad Products D-Dimer 2.18 H Sodium Potassium Chloride Carbon Dioxide Anion Gap BUN Creatinine Est GFR ( Amer) Est GFR (Non-Af Amer) Glucose Lactic Acid Calcium Magnesium Total Bilirubin Direct Bilirubin AST ALT Alkaline Phosphatase Total Protein Albumin Serum HCG, Qual Urine Color Urine Appearance Urine pH Ur Specific Polson Urine Protein Urine Glucose (UA) Urine Ketones Urine Blood Urine Nitrite Urine Bilirubin Urine Urobilinogen Ur Leukocyte Esterase Urine WBC (Auto) Urine RBC (Auto) U Hyaline Cast (Auto) Urine Bacteria (Auto) Squamous Epi Cells Auto Urine Mucus (Auto) Urine Ascorbic Acid C. difficile Tox (PCR) Slides for Path Review 08/29/16 08/29/16 14:10 14:10 WBC RBC Hgb Hct MCV MCH MCHC RDW Plt Count Total Counted Seg Neutrophils % Seg Neuts % (Manual) Band Neutrophils % Lymphocytes % Lymphocytes % (Manual) Monocytes % Monocytes % (Manual) Eosinophils % Eosinophils % (Manual) Basophils % Basophils % (Manual) Absolute Neutrophils Abs Neuts (Manual) Absolute Lymphocytes Abs Lymphs (Manual) Absolute Monocytes Abs Monocytes (Manual) Absolute Eosinophils Absolute Eos (Manual) Absolute Basophils Abs Basophils (Manual) Toxic Granulation Toxic Vacuolation Platelet Comment Poikilocytosis Homer Cells RBC Morph Comment PT INR Fibrinogen Fibrin Degrad Products <10 D-Dimer Sodium 140.2 Potassium 3.6 Chloride 109 H Carbon Dioxide 23 Anion Gap 8 BUN 7 Creatinine 0.45 L Est GFR ( Amer) > 60 Est GFR (Non-Af Amer) > 60 Glucose 112 H Lactic Acid Calcium 8.1 L Magnesium 1.7 Total Bilirubin 0.8 Direct Bilirubin 0.0 AST 55 H ALT 49 Alkaline Phosphatase 106 Total Protein 4.9 L Albumin 2.5 L Serum HCG, Qual Urine Color Urine Appearance Urine pH Ur Specific Polson Urine Protein Urine Glucose (UA) Urine Ketones Urine Blood Urine Nitrite Urine Bilirubin Urine Urobilinogen Ur Leukocyte Esterase Urine WBC (Auto) Urine RBC (Auto) U Hyaline Cast (Auto) Urine Bacteria (Auto) Squamous Epi Cells Auto Urine Mucus (Auto) Urine Ascorbic Acid C. difficile Tox (PCR) Slides for Path Review Impressions: Chest X-Ray 08/26/16 16:36 IMPRESSION: NO SIGNIFICANT RADIOGRAPHIC FINDING IN THE CHEST. Lung Scan-VQ NM 08/28/16 16:13 IMPRESSION: NORMAL VENTILATION-PERFUSION LUNG SCAN. NEGATIVE FOR PULMONARY EMBOLI. Chest CT 08/29/16 10:14 IMPRESSION: There is diffuse patchy ground-glass and parenchymal densities noted throughout the lungs concerning for underlying edema and/or infectious infiltrate. There is prominence of the interlobular septa throughout the lungs most notably in the bases which is suggestive from underlying edema. Small bilateral pleural effusions are identified with adjacent compressive atelectasis. Plan Discharge Plan: Discharged home Time Spent: Greater than 30 Minutes
== END 2016-08-31 16:40 | disposition home or self-care (01) | DRG 152 ==
LOC: ER 15:01 → EH 21:20 → UNDOADMIN 21:44 → EH 21:44 → 3S 08-27 17:22
PROVIDERS: ADMIT Family Medicine; ATTEND Family Medicine
DX: H66.012 Acute suppurative otitis media with spontaneous rupture of ear drum, left ear (principal); J18.9 Pneumonia, unspecified organism; J11.1 Influenza due to unidentified influenza virus with other respiratory manifestations; I95.1 Orthostatic hypotension; R00.0 Tachycardia, unspecified; D69.6 Thrombocytopenia, unspecified; H91.8X2 Other specified hearing loss, left ear; R19.7 Diarrhea, unspecified; R11.2 Nausea with vomiting, unspecified; Z88.1 Allergy status to other antibiotic agents; Z88.5 Allergy status to narcotic agent; Z88.2 Allergy status to sulfonamides; Z88.8 Allergy status to other drugs, medicaments and biological substances
CPT/HCPCS: 36415; 71020; 71250; 78582; 80048; 80053; 81001; 83605; 83735; 84703; 85025; 85362; 85379; 85384; 85610; 87040; 87045; 87070; 87077; 87205; 87493; 93005; 93010; 93306; 94667; 94762; 94799; 96374; 96375; 99285; A9540; A9567; J0696; J1885; J1940; J2270; J2405; J2550; J2920; J2930; J3475; J3490; J7030; J7120; J7620; Q9969

== ENCOUNTER 2016-11-20 09:49 | Emergency (ER) | payer MEDICAID ==
--- NOTE | 2016-11-20 11:02 | ER Document Report ---
HPI - HPI Patient complains to provider of: wrist pain Onset: Yesterday Onset/Duration: Sudden Quality of pain: Achy Severity: Severe Pain Level: 4 Context: Patient presents emergency department with complaints of left wrist and hand pain since yesterday. She reports she was pulling something yesterday and it felt like something popped in her wrist. Her hand immediately became swollen. She reports pain since that time and increased pain putting her hand in a fist. She reports she hurt her wrist last uriel. Denies trauma. Denies other symptoms such as fever vomiting diarrhea. Associated Symptoms: None Exacerbated by: Movement Relieved by: Denies Similar symptoms previously: Yes Recently seen / treated by doctor: No - REPRODUCTIVE LMP: 11/05/16 Reproductive: DENIES: : - DERM Skin Color: Normal Past Medical History - General Information source: Patient Last Menstrual Period: 11/05/16 - Social History Smoking Status: Unknown if Ever Smoked Cigarette use (# per day): No Frequency of alcohol use: None Drug Abuse: None Occupation: none Lives with: Family Family History: Other - breast CA Patient has suicidal ideation: No Patient has homicidal ideation: No - Past Medical History Cardiac Medical History: Denies: Hx Congestive Heart Failure, Hx DVT, Hx Heart Attack, Hx Hypercholesterolemia, Hx Hypertension, Hx Pulmonary Embolism Pulmonary Medical History: Reports: Hx Pneumonia Denies: Hx Asthma, Hx COPD Neurological Medical History: 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 Denies: Hx Peritoneal Dialysis GI Medical History: Denies: Hx Cirrhosis, Hx Gastroesophageal Reflux Disease Musculoskeltal Medical History: Denies Hx Arthritis Psychiatric Medical History: Denies: Hx Depression Infectious Medical History: Denies: Hx C-Diff Past Surgical History: Reports: Hx Abdominal Surgery - laproscopy, Hx Section - x 3, Hx Orthopedic Surgery - rt shoulder bicep repair, Hx Tubal Ligation. Denies: Hx Hysterectomy - Immunizations Immunizations up to date: Yes Hx Diphtheria, Pertussis, Tetanus Vaccination: Yes Vertical Provider Document - CONSTITUTIONAL Agree With Documented VS: Yes Exam Limitations: No Limitations General Appearance: WD/WN, No Apparent Distress - nontoxic looking - INFECTION CONTROL TRAVEL OUTSIDE OF THE [place] IN LAST 30 DAYS: No - HEENT HEENT: Atraumatic, Normocephalic - NECK Neck: Supple - RESPIRATORY Respiratory: No Respiratory Distress O2 Sat by Pulse Oximetry: 99 - CARDIOVASCULAR Cardiovascular: Regular Rate - MUSCULOSKELETAL/EXTREMETIES Musculoskeletal/Extremeties: Tender - Left wrist and hand tender to palpation good radial pulse brisk cap refill no obvious deformity no obvious swelling no erythema no warmth. 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 He was instructed on Ino wrap ice Tylenol for pain. She was also instructed to follow-up with Dr. Varela within the next 3 days for recheck and referral to orthopedics as indicated. She verbalized understanding. - Vital Signs Vital signs: Temp Pulse Resp BP Pulse Ox 97.7 F 81 18 116/76 99 11/20/16 10:09 11/20/16 10:09 11/20/16 10:09 11/20/16 10:09 11/20/16 10:09 - Diagnostic Test Radiology reviewed: Image reviewed, Reports reviewed - Diagnostic report text EXAM DESCRIPTION: HAND LEFT 3 VIEWS; WRIST LEFT 3 VIEWS COMPLETED DATE/TIME: 11/20/2016 11:06 am REASON FOR STUDY: left hand pain; left wrist pain COMPARISON: None. FINDINGS: Three views left wrist: Normal bone density. Normal carpal alignment with preserved joint spaces. No fracture. Three views left hand: Normal bone density. Normal alignment of the joints without subluxation or dislocation. No fracture. IMPRESSION: 1. No left wrist fracture. 2. No left hand fracture Procedures - Immobilization Left Wrist Pre-Proc Neuro Vasc Exam: Normal Immobilizer type: Ino wrap Performed by: PCT Post-Proc Neuro Vasc Exam: Unchanged from pre-exam Discharge - Discharge Clinical Impression: Hand pain, left Wrist pain Qualifiers: Laterality: left Qualified Code(s): M25.532 - Pain in left wrist Condition: Stable Disposition: HOME, SELF-CARE Instructions: Ice & Elevation (OM), Ino Wrap ([facility]) Additional Instructions: *You have been evaluated for left wrist and hand pain *Maintain the ino wrap for comfort *Rest/Ice/Elevate your wrist *Follow up with orthopedics for continued pain-call for an appointment *Take tylenol as indicated for pain *Follow up with Dr. Varela within the next 3 days for recheck. *Return to ED for worsening condition, changes, needs Referrals: BITA VARELA DO [Primary Care Provider] - Follow up in 3-5 days
--- NOTE | 2016-11-20 11:25 | RADIOLOGY REPORT (SQ) ---
EXAM DESCRIPTION: HAND LEFT 3 VIEWS; WRIST LEFT 3 VIEWS COMPLETED DATE/TIME: 11/20/2016 11:06 am REASON FOR STUDY: left hand pain; left wrist pain COMPARISON: None. FINDINGS: Three views left wrist: Normal bone density. Normal carpal alignment with preserved join t spaces. No fracture. Three views left hand: Normal bone density. Normal alignment of the joints without subluxation or d islocation. No fracture. IMPRESSION: 1. No left wrist fracture. 2. No left hand fracture. TECHNICAL DOCUMENTATION: JOB ID: [id number]
[2016-11-20] MEDS ORDERED: ACETAMINOPHEN 325 MG TABLET PO ONE (11:38)
[2016-11-20 12:14] VITALS: BP 120/78
== END 2016-11-20 12:05 | disposition home or self-care (01) ==
LOC: ER 09:49
DX: M25.532 Pain in left wrist (principal); M79.642 Pain in left hand
CPT/HCPCS: 99283

== ENCOUNTER 2016-12-08 14:26 | Emergency (ER) | payer MEDICAID ==
[2016-12-08 14:32] VITALS: BP 118/89
[2016-12-08] MEDS ORDERED: DIPH/PERTUSS(ACELL)/TETANUS VAC/PF 0.5 ML SYR (>=10YO) IM ONE (15:36)
[2016-12-08] MEDS ORDERED: HYDROCODONE/ACETAMINOPHEN 5-325 MG TABLET PO ONE (15:36)
[2016-12-08] MEDS ORDERED: LIDOCAINE 1% INJ-PF (10 MG/ML) 30 ML SDV INJ ONE (15:37)
[2016-12-08] MEDS ORDERED: CEPHALEXIN 500 MG CAPSULE PO ONE (15:37)
--- NOTE | 2016-12-08 16:46 | RADIOLOGY REPORT (SQ) ---
EXAM DESCRIPTION: HAND LEFT 3 VIEWS COMPLETED DATE/TIME: 12/08/2016 4:17 pm REASON FOR STUDY: pain injury COMPARISON: 11/20/2016 EXAM PARAMETERS: NUMBER OF VIEWS: Three views. TECHNIQUE: AP, lateral and oblique radiographic images acquired of the left hand. LIMITATIONS: None. FINDINGS: MINERALIZATION: Normal. BONES: No acute fracture or dislocation. No worrisome bone lesions. JOINTS: No effusions. SOFT TISSUES: No soft tissue swelling. No foreign body. OTHER: No other significant finding. IMPRESSION: NEGATIVE STUDY OF THE LEFT HAND. NO RADIOGRAPHIC EVIDENCE OF ACUTE INJURY. TECHNICAL DOCUMENTATION: JOB ID: [id number] [employer]- All Rights Reserved
--- NOTE | 2016-12-08 17:12 | ER Document Report ---
ED Hand/Wrist Injury - General Chief Complaint: Laceration Stated Complaint: LEFT HAND LACERATION Time Seen by Provider: 12/08/16 15:20 Mode of Arrival: Ambulatory Information source: Patient Notes: 31-year-old female presented to ED for laceration to left hand to the and third fingers. Lacerations are very irregular star-shaped. Patient states she was using an electric offal trimmer when she put her hand to close and cut the fingers. TRAVEL OUTSIDE OF THE [place] IN LAST 30 DAYS: No - HPI Injury to: Index finger, Middle finger Onset: Just prior to arrival Where: Home, Outdoors Timing: Still present Quality of pain: Sharp, Throbbing Severity: Moderate Pain Level: 4 Context: Laceration - Related Data Allergies/Adverse Reactions: amoxicillin [Amoxicillin] Allergy (Verified 12/08/16 14:29) GI upset azithromycin [From Zithromax] Allergy (Verified 12/08/16 14:29) Hives cefaclor [From Ceclor] Allergy (Verified 12/08/16 14:29) cefprozil [From Cefzil] Allergy (Verified 12/08/16 14:29) codeine [Codeine] Allergy (Verified 12/08/16 14:29) GI upset corn [[place]] Allergy (Verified 12/08/16 14:29) gi upset/hives dextrose [Dextrose] Allergy (Verified 12/08/16 14:29) nausea,skin rash erythromycin base [Erythromycin Base] Allergy (Verified 12/08/16 14:29) hives,gi upset metoclopramide HCl [From Reglan] Allergy (Verified 12/08/16 14:29) "Skin crawls" polysorbate 80 [Polysorbate 80] Allergy (Verified 12/08/16 14:29) povidone-iodine [From Betadine] Allergy (Verified 12/08/16 14:29) chemical rash Soap [From Betadine] Allergy (Verified 12/08/16 14:29) chemical rash sorbitol [Sorbitol] Allergy (Verified 12/08/16 14:29) soy [Soy] Allergy (Verified 12/08/16 14:29) GI upset,rash Sulfa (Sulfonamide Antibiotics) Allergy (Verified 12/08/16 14:29) GI upset amoxicillin trihydrate [From Augmentin] Adverse Reaction (Severe, Verified 12/08 14:29) GI upset Potassium Clavulanate * [From Augmentin] Adverse Reaction (Severe, Verified 04/16 14:29) GI upset propofol [Propofol] Adverse Reaction (Severe, Verified 12/08/16 14:29) "EXTREME DIFFICULTY WAKING UP" succinylcholine [Succinylcholine] Adverse Reaction (Unknown, Verified 12/08/16 14:29) "STATES MOTHER HAD A BAD REACTION" TOLD NOT TO TAKE droperidol [From Inapsine] Adverse Reaction (Verified 12/08/16 14:29) Psychosis tygan Allergy (Uncoded 12/08/16 14:29) Past Medical History - General Information source: Patient - Social History Smoking Status: Never Smoker Cigarette use (# per day): No Chew tobacco use (# tins/day): No Smoking Education Provided: No Frequency of alcohol use: Social Drug Abuse: None 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 denies : CAD, COPD, Hyperlipidemia Patient has suicidal ideation: No Patient has homicidal ideation: No - Past Medical History Cardiac Medical History: Reports: None Pulmonary Medical History: Reports: Hx Bronchitis, Hx Pneumonia, Other - Sepsis Neurological Medical History: Reports: Hx Seizures - "Psychogenic"; never rx'd antiepileptics.Comment Only: Hx Migraine - frequent HAs no migraine dx Endocrine Medical History: Reports: None Renal/ Medical History: Reports: Hx Kidney Stones, Hx Ovarian Cysts Malignancy Medical History: Reports: None GI Medical History: Reports: Hx Irritable Bowel, Hx Colonoscopy, Hx Endoscopy Musculoskeltal Medical History: Reports Hx Arthritis, Reports Hx Musculoskeletal Deformity, Reports Hx Musculoskeletal Trauma Skin Medical History: Reports None Psychiatric Medical History: Reports: Hx Anxiety Traumatic Medical History: Reports: Hx Fractures Infectious Medical History: Reports: None Past Surgical History: Reports: Hx Abdominal Surgery - laproscopy, Hx Section - x 3, Hx Nose Surgery, Hx Orthopedic Surgery - rt shoulder bicep repair , Hx Tonsillectomy, Hx Tubal Ligation - Immunizations Immunizations up to date: Yes Hx Diphtheria, Pertussis, Tetanus Vaccination: Yes - 12/08/16 Review of Systems - Review of Systems Constitutional: No symptoms reported EENT: No symptoms reported Cardiovascular: No symptoms reported Respiratory: No symptoms reported Gastrointestinal: No symptoms reported Genitourinary: No symptoms reported Female Genitourinary: No symptoms reported Musculoskeletal: Other - left hand injury Skin: Other - laceration to left 2 and 3 finger Hematologic/Lymphatic: No symptoms reported Neurological/Psychological: No symptoms reported -: Yes All other systems reviewed and negative Physical Exam - Vital signs Vitals: Temp Pulse Resp BP Pulse Ox 97.9 F 77 20 118/89 H 96 12/08/16 14:30 12/08/16 14:30 12/08/16 14:30 12/08/16 14:30 12/08/16 14:30 Interpretation: Normal - General General appearance: Appears well, Alert - HEENT Head: Normocephalic, Atraumatic Eyes: Normal Pupils: PERRL - Respiratory Respiratory status: No respiratory distress Chest status: Nontender Breath sounds: Normal Chest palpation: Normal - Cardiovascular Rhythm: Regular Heart sounds: Normal auscultation Murmur: No - Abdominal Inspection: Normal Distension: No distension Bowel sounds: Normal Tenderness: Nontender Organomegaly: No organomegaly - Back Back: Normal, Nontender - Extremities General upper extremity: Normal color, Normal temperature General lower extremity: Normal inspection, Nontender, Normal color, Normal ROM , Normal temperature, Normal weight bearing. No: Siliva's sign Hand: Tender, Ecchymosis, Laceration - left 2 and 3 finger, No evidence of human bite, No evidence of FB, Swelling. No: Nail injury, Tendon deficit - Neurological Neuro grossly intact: Yes Cognition: Normal Orientation: AAOx4 [place] Coma Scale Eye Opening: Spontaneous [place] Coma Scale Verbal: Oriented [place] Coma Scale Motor: Obeys Commands [place] Coma Scale Total: 15 Speech: Normal Motor strength normal: LUE, RUE, LLE, RLE Sensory: Normal - Psychological Associated symptoms: Normal affect, Normal mood - Skin Skin Temperature: Warm Skin Moisture: Dry Skin Color: Normal Skin irregularity: Laceration - 2 and 3 finger left hand Course - Vital Signs Vital signs: Temp Pulse Resp BP Pulse Ox 97.9 F 77 20 118/89 H 96 12/08/16 14:30 12/08/16 14:30 12/08/16 14:30 12/08/16 14:30 12/08/16 14:30 - Diagnostic Test Radiology reviewed: Image reviewed, Reports reviewed Procedures - Immobilization Left Hand Time completed: 17:05 Immobilizer type: Volar splint Performed by: PCT Post-Proc Neuro Vasc Exam: Normal Alignment checked and good: Yes - Laceration/Wound Repair Left Finger 2nd digit Time completed: 16:50 Wound length (cm): 2 Wound's Depth, Shape: Into muscle, Stellate Laceration pre-procedure: Sterile PPE donned, Sterile drapes applied, Other - surgical scrub Anesthetic type: 1% Lidocaine Volume Anesthetic (mLs): 2 Wound explored: No foreign body removed, Contaminated Irrigated w/ Saline (mLs): 150 Wound Repaired With: Sutures Suture Size/Type: 5:0, Ethilon Number of Sutures: 5 Layer Closure?: No Deep Layer Suture Size/Type: 6:0 Post-procedure wound care: Sterile dressing applied, Splint applied Post-procedure NV exam normal: Yes Complications: Yes - complicated fitting pieces together Left Finger 3rd digit Time completed: 16:40 Wound length (cm): 2 Wound's Depth, Shape: Irregular, Stellate Laceration pre-procedure: Sterile PPE donned, Sterile drapes applied, Other - surgical scrub Anesthetic type: 1% Lidocaine Volume Anesthetic (mLs): 2 Wound explored: No foreign body removed, Contaminated Wound Repaired With: Sutures Suture Size/Type: 5:0, Ethilon Number of Sutures: 5 Layer Closure?: No Post-procedure wound care: Sterile dressing applied Post-procedure NV exam normal: Yes Complications: Yes - complicated fitting pieces together Discharge - Discharge Clinical Impression: left 2nd finger laceration, left 3rd finger laceration Condition: Stable Disposition: HOME, SELF-CARE Additional Instructions: Hand Laceration A laceration on the hand can present special problems. It may be difficult to keep the wound dry. Motion of the fingers can disturb the healing edges. Your work may involve exposure to damaging chemicals or water. Keep the wound clean and dry. If you can't keep the cut dry, undisturbed, and free of chemical exposure, please discuss this with the doctor. If any water or chemical gets onto the dressing, remove it, blot the wound dry, then apply a fresh bandage. Dressings should be changed every day. If you feel the stitches pulling as you move the hand, a splint or other form of protection is needed. If any signs of infection occur (swelling, redness, increasing tenderness, red streaks, tender lumps in the armpit, or fever), see the doctor immediately. SOAP CLEANSING: Gently wash the wound daily using a mild soap (like Ivory, Phisoderm, Neutrogena). Use warm water, rubbing gently until all debris, ooze, and crusting have been washed from the wound. Allow to dry briefly (about 10 minutes) after cleaning. Repeat this cleansing at least three times a day for the first two days and then once or twice a day. ANTIBIOTIC OINTMENT PROTECTION: Your wounds are such that dressing them is not practical or optional. After cleansing, you should apply a thin coating of antibiotic ointment ( Bacitracin, not Neosporin) to the wounds at least three times daily. This lessens infection risk, and may decrease the amount of scarring. Use a q-tip or dull butter knife, not your finger, to apply this ointment. Any debris or ooze which builds up in the ointment should be gently rubbed off with a sterile gauze pad. Harder crusting may need to be gently scrubbed off with a clean wash cloth with soap and warm water, perhaps applying a warm, wet wash cloth to the wound for ten minutes first. Development of redness, severe itching, or blistering may mean allergy to the ointment. See the doctor. TETANUS IMMUNIZATION GIVEN: You have been given an immunization against tetanus. Please record this in your records. In general, a booster is needed only once every 10 years. The tetanus shot protects against tetanus or "lockjaw," which is a complication of certain wound infections (the tetanus shot cannot protect against the actual infection). The immunization site may become warm and red due to local reaction. If this occurs, apply warm compresses and take aspirin or ibuprofen to reduce inflammation and discomfort. Return for evaluation if the reaction becomes severe. Cephalexin The antibiotic you've been prescribed is a member of the cephalosporin class. This type of antibiotic covers a wide variety of infections, including those of the skin, lungs, and urinary tract. It's useful for staph infections. This antibiotic is slightly similar to the penicillin family. In rare cases , a person who is allergic to penicillin will also be allergic to this medication. If you have had a severe allergic reaction to penicillin, and have not taken this antibiotic since that time, notify your doctor. Antibiotics which cover many germs ("broad spectrum" antibiotics) are more likely to cause diarrhea or "yeast" infections. Women prone to vaginal yeast problems may suffer an attack after taking this antibiotic. In infants, oral thrush (white spots "stuck" on the cheek) or yeast diaper rash may result. See your doctor if these problems occur. Call at once if you develop itching, hives , shortness of breath, or lightheadedness. ORAL NARCOTIC MEDICATION: You have been given a prescription for pain control. This medication is a narcotic. It's best taken with food, as nausea can result if taken on an empty stomach. Don't operate machinery or drive within six hours of taking this medication. Do not combine this medicine with alcohol, or with any medication which can cause sedation (such as cold tablets or sleeping pills) unless you get permission from the physician. Narcotics tend to cause constipation. If possible, drink plenty of fluids and eat a diet high in fiber and fruits. FOLLOW-UP CARE: Please return in __3___ days for an infection check and dressing change. Your sutures should be removed in ____8_ days. To facilitate a timely removal of your sutures, you may return to the Emergency Department at [facility]. You do not need to call for an appointment, but the best time to come in for suture removal is early in the morning. If you have been referred to another physician for follow-up care, call that physicians office for an appointment as you were instructed. If you experience a significant change in your laceration, or if you are concerned there may be an infection (swelling, redness, drainage, increasing tenderness, red streaks, tender lumps in the armpit or groin above the laceration, or fever) , return to the Emergency Department immediately re-evaluation. Please complete the patient's satisfaction survey if you get one and return. If you do not receive a survey you can go to [facility] website [email or web address] and place your comments about your very good care. Thank you very much. It was a pleasure be in your medical provider today. Prescriptions: Hydrocodone/Acetaminophen [[place] 5-325 mg Tablet] 1 tab PO Q6HP PRN #14 tablet PRN Reason: Cephalexin Monohydrate [Keflex 500 mg Capsule] 500 mg PO QID #20 capsule Forms: Return to Work Referrals: MINNIE BURNS, [ACTIVE STAFF] - Follow up as needed
== END 2016-12-08 17:40 | disposition home or self-care (01) ==
LOC: ER 14:26
PROC: 0HQGXZZ Repair Left Hand Skin, External Approach (ICD-10-PCS; principal; 2016-12-08)
DX: S61.211A Laceration without foreign body of left index finger without damage to nail, initial encounter (principal); S61.213A Laceration without foreign body of left middle finger without damage to nail, initial encounter; W29.3XXA Contact with powered garden and outdoor hand tools and machinery, initial encounter; Y93.H2 Activity, gardening and landscaping; Y92.009 Unspecified place in unspecified non-institutional (private) residence as the place of occurrence of the external cause; Z88.0 Allergy status to penicillin; Z88.1 Allergy status to other antibiotic agents; Z88.5 Allergy status to narcotic agent; Z91.018 Allergy to other foods; Z88.8 Allergy status to other drugs, medicaments and biological substances; Z88.3 Allergy status to other anti-infective agents; Z88.2 Allergy status to sulfonamides
CPT/HCPCS: 12002; 99283; 90471; 73130; 90715; J3490

== ENCOUNTER 2017-03-17 19:48 | Emergency (ER) | payer SELFPAY ==
--- NOTE | 2017-03-17 20:03 | ER Document Report ---
ED General - General Chief Complaint: Vaginal Bleeding Stated Complaint: PELVIC PAIN Time Seen by Provider: 03/17/17 19:59 TRAVEL OUTSIDE OF THE [place] IN LAST 30 DAYS: No - HPI Notes: Vaginal pain abdominal pain back pain - Related Data Allergies/Adverse Reactions: amoxicillin [Amoxicillin] Allergy (Verified 03/17/17 19:51) GI upset azithromycin [From Zithromax] Allergy (Verified 03/17/17 19:51) Hives cefaclor [From Ceclor] Allergy (Verified 03/17/17 19:51) cefprozil [From Cefzil] Allergy (Verified 03/17/17 19:51) codeine [Codeine] Allergy (Verified 03/17/17 19:51) GI upset corn [[place]] Allergy (Verified 03/17/17 19:51) gi upset/hives dextrose [Dextrose] Allergy (Verified 03/17/17 19:51) nausea,skin rash erythromycin base [Erythromycin Base] Allergy (Verified 03/17/17 19:51) hives,gi upset metoclopramide HCl [From Reglan] Allergy (Verified 03/17/17 19:51) "Skin crawls" polysorbate 80 [Polysorbate 80] Allergy (Verified 03/17/17 19:51) povidone-iodine [From Betadine] Allergy (Verified 03/17/17 19:51) chemical rash Soap [From Betadine] Allergy (Verified 03/17/17 19:51) chemical rash sorbitol [Sorbitol] Allergy (Verified 03/17/17 19:51) soy [Soy] Allergy (Verified 03/17/17 19:51) GI upset,rash Sulfa (Sulfonamide Antibiotics) Allergy (Verified 03/17/17 19:51) GI upset amoxicillin trihydrate [From Augmentin] Adverse Reaction (Severe, Verified 03/17 19:51) GI upset Potassium Clavulanate * [From Augmentin] Adverse Reaction (Severe, Verified 19:51) GI upset propofol [Propofol] Adverse Reaction (Severe, Verified 03/17/17 19:51) "EXTREME DIFFICULTY WAKING UP" succinylcholine [Succinylcholine] Adverse Reaction (Unknown, Verified 03/17/17 19:51) "STATES MOTHER HAD A BAD REACTION" TOLD NOT TO TAKE droperidol [From Inapsine] Adverse Reaction (Verified 03/17/17 19:51) Psychosis tygan Allergy (Uncoded 03/17/17 19:51) Past Medical History - Social History Smoking Status: Never Smoker Chew tobacco use (# tins/day): No Frequency of alcohol use: None Drug Abuse: None Family History: CVA, DM, Hypertension, Malignancy, Thyroid Disfunction. denies : CAD, COPD, Hyperlipidemia Patient has suicidal ideation: No Patient has homicidal ideation: No - Past Medical History Cardiac Medical History: Denies: Hx Congestive Heart Failure, Hx DVT, Hx Heart Attack, Hx Hypercholesterolemia, Hx Hypertension, Hx Pulmonary Embolism Pulmonary Medical History: Reports: Hx Bronchitis, Hx Pneumonia Denies: Hx Asthma, Hx COPD Neurological Medical History: 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 Denies: Hx Peritoneal Dialysis GI Medical History: Reports: Hx Irritable Bowel, Hx Colonoscopy, Hx Endoscopy. Denies: Hx Cirrhosis, Hx Gastroesophageal Reflux Disease Musculoskeltal Medical History: Reports Hx Arthritis, Reports Hx Musculoskeletal Deformity, Reports Hx Musculoskeletal Trauma Psychiatric Medical History: Reports: Hx Anxiety Denies: Hx Depression Traumatic Medical History: Reports: Hx Fractures Infectious Medical History: Denies: Hx C-Diff Past Surgical History: Reports: Hx Abdominal Surgery - laproscopy, Hx Section - x 3, Hx Nose Surgery, Hx Orthopedic Surgery - rt shoulder bicep repair , Hx Tonsillectomy, Hx Tubal Ligation. Denies: Hx Hysterectomy - Immunizations Immunizations up to date: Yes Hx Diphtheria, Pertussis, Tetanus Vaccination: Yes - 12/08/16 Review of Systems - Review of Systems Gastrointestinal: Abdominal pain Physical Exam - Vital signs Vitals: Temp Pulse Resp BP Pulse Ox 98.0 F 63 16 119/76 98 03/17/17 19:53 03/17/17 19:53 03/17/17 19:53 03/17/17 19:53 03/17/17 19:53 - Respiratory Respiratory status: No respiratory distress Chest status: Nontender Breath sounds: Normal Chest palpation: Normal Course - Vital Signs Vital signs: Temp Pulse Resp BP Pulse Ox 98.0 F 63 16 119/76 98 03/17/17 19:53 03/17/17 19:53 03/17/17 19:53 03/17/17 19:53 03/17/17 19:53
[2017-03-17 20:48] LABS: APPEARANCE,URINE CLEAR; BILIRUBIN,URINE NEGATIVE (NEGATIVE); GLUCOSE, URINE NEGATIVE (NEGATIVE); KETONES,URINE NEGATIVE (NEGATIVE); LEUKOCYTE ESTERASE,URINE NEGATIVE (NEGATIVE); NITRITE,URINE NEGATIVE (NEGATIVE); PROTEIN,URINE NEGATIVE (NEGATIVE); URINE SPECIFIC GRAVITY 1.017; UROBILINOGEN,URINE NEGATIVE mg/dL (<2.0)
[2017-03-17 21:07] LABS: ABSOLUTE EOSINOPHILS # (AUTO) 0.2 10^3/uL (0.0-0.6); ABSOLUTE LYMPHOCYTES (AUTO) 2.6 10^3/uL (0.5-4.7); ABSOLUTE MONOCYTES (AUTO) 0.6 10^3/uL (0.1-1.4); BASOPHILS % (AUTO) 0.2 % (0-2); EOSINOPHILS % (AUTO) 2.3 % (0-6); HEMATOCRIT 45.5 % (36.0-47.0); HGB HCT DIFFERENCE 2.5; MEAN CORPUSCULAR HEMOGLOBIN 29.4 pg (27.0-33.4); MEAN CORPUSCULAR HGB CONC 35.2 g/dL (32.0-36.0); MEAN CORPUSCULAR VOLUME 84 fl (80-97); MONOCYTES % (AUTO) 5.8 % (3-13); RED BLOOD COUNT 5.43 10^6/uL (3.72-5.28); RED CELL DISTRIBUTION WIDTH 13.7 % (11.5-14.0); SEGMENTED NEUTROPHILS % (AUTO) 66.7 % (42-78); WHITE BLOOD COUNT 10.5 10^3/uL (4.0-10.5)
[2017-03-17 21:31] LABS: ALANINE AMINOTRANSFERASE 28 U/L (9-52); ALBUMIN 4.8 g/dL (3.5-5.0); ALKALINE PHOSPHATASE 78 U/L (38-126); ANION GAP 11 (5-19); ASPARTATE AMINO TRANSFERASE 21 U/L (14-36); BILIRUBIN,DIRECT 0.4 mg/dL (0.0-0.4); BILIRUBIN,TOTAL 0.9 mg/dL (0.2-1.3); BLOOD UREA NITROGEN 16 mg/dL (7-20); CALCIUM 10.1 mg/dL (8.4-10.2); CARBON DIOXIDE 25 mmol/L (22-30); CHLORIDE 103 mmol/L (98-107); CREATININE RESULT 0.64 mg/dL (0.52-1.25); GLUCOSE 85 mg/dL (75-110); LIPASE 118.4 U/L (23-300); POTASSIUM 4.3 mmol/L (3.6-5.0); TOTAL PROTEIN 7.3 g/dL (6.3-8.2)
--- NOTE | 2017-03-17 21:45 | ER Document Report ---
ED GI/ - General Chief Complaint: Vaginal Bleeding Stated Complaint: PELVIC PAIN Time Seen by Provider: 03/17/17 19:59 Mode of Arrival: Ambulatory Information source: Patient Notes: 31-year-old female complaining of pelvic pain and midcycle bleeding since Saturday. [place] was painful on Saturday. No vaginal discharge with odor. The pain radiates to her left flank. No UTI symptoms. No history kidney stone, colitis, diverticulitis. G 10 P3, 3 C-sections and adhesion revision. No fever or chills. No nausea vomiting or diarrhea. TRAVEL OUTSIDE OF THE [place] IN LAST 30 DAYS: No - Related Data Allergies/Adverse Reactions: amoxicillin [Amoxicillin] Allergy (Verified 03/17/17 19:51) GI upset azithromycin [From Zithromax] Allergy (Verified 03/17/17 19:51) Hives cefaclor [From Ceclor] Allergy (Verified 03/17/17 19:51) cefprozil [From Cefzil] Allergy (Verified 03/17/17 19:51) codeine [Codeine] Allergy (Verified 03/17/17 19:51) GI upset corn [Protivin] Allergy (Verified 03/17/17 19:51) gi upset/hives dextrose [Dextrose] Allergy (Verified 03/17/17 19:51) nausea,skin rash erythromycin base [Erythromycin Base] Allergy (Verified 03/17/17 19:51) hives,gi upset metoclopramide HCl [From Reglan] Allergy (Verified 03/17/17 19:51) "Skin crawls" polysorbate 80 [Polysorbate 80] Allergy (Verified 03/17/17 19:51) povidone-iodine [From Betadine] Allergy (Verified 03/17/17 19:51) chemical rash Soap [From Betadine] Allergy (Verified 03/17/17 19:51) chemical rash sorbitol [Sorbitol] Allergy (Verified 03/17/17 19:51) soy [Soy] Allergy (Verified 03/17/17 19:51) GI upset,rash Sulfa (Sulfonamide Antibiotics) Allergy (Verified 03/17/17 19:51) GI upset amoxicillin trihydrate [From Augmentin] Adverse Reaction (Severe, Verified 03/17 19:51) GI upset Potassium Clavulanate * [From Augmentin] Adverse Reaction (Severe, Verified 19:51) GI upset propofol [Propofol] Adverse Reaction (Severe, Verified 03/17/17 19:51) "EXTREME DIFFICULTY WAKING UP" succinylcholine [Succinylcholine] Adverse Reaction (Unknown, Verified 03/17/17 19:51) "STATES MOTHER HAD A BAD REACTION" TOLD NOT TO TAKE droperidol [From Inapsine] Adverse Reaction (Verified 03/17/17 19:51) Psychosis tygan Allergy (Uncoded 03/17/17 19:51) Past Medical History - General Information source: Patient - Social History Smoking Status: Never Smoker Chew tobacco use (# tins/day): No Frequency of alcohol use: None Drug Abuse: None Lives with: Family Family History: CVA, DM, Hypertension, Malignancy, Thyroid Disfunction Patient has suicidal ideation: No Patient has homicidal ideation: No - Past Medical History Cardiac Medical History: Pulmonary Medical History: Reports: Hx Bronchitis, Hx Pneumonia Neurological Medical History: Reports: Hx Seizures - "Psychogenic"; never rx'd antiepileptics.Comment Only: Hx Migraine - frequent HAs no migraine dx Renal/ Medical History: Reports: Hx Kidney Stones, Hx Ovarian Cysts GI Medical History: Reports: Hx Irritable Bowel, Hx Colonoscopy, Hx Endoscopy Musculoskeltal Medical History: Reports Hx Arthritis, Reports Hx Musculoskeletal Deformity, Reports Hx Musculoskeletal Trauma Psychiatric Medical History: Reports: Hx Anxiety Traumatic Medical History: Reports: Hx Fractures Infectious Medical History: Past Surgical History: Reports: Hx Abdominal Surgery - laproscopy, Hx Section - x 3, Hx Nose Surgery, Hx Orthopedic Surgery - rt shoulder bicep repair , Hx Tonsillectomy, Hx Tubal Ligation - Immunizations Immunizations up to date: Yes Hx Diphtheria, Pertussis, Tetanus Vaccination: Yes - 12/08/16 Review of Systems - Review of Systems Constitutional: No symptoms reported EENT: No symptoms reported Cardiovascular: No symptoms reported Respiratory: No symptoms reported Gastrointestinal: No symptoms reported Genitourinary: No symptoms reported Female Genitourinary: See HPI Musculoskeletal: No symptoms reported Skin: No symptoms reported Hematologic/Lymphatic: No symptoms reported Neurological/Psychological: No symptoms reported Physical Exam - Vital signs Vitals: Temp Pulse Resp BP Pulse Ox 98.0 F 63 16 119/76 98 03/17/17 19:53 03/17/17 19:53 03/17/17 19:53 03/17/17 19:53 03/17/17 19:53 Interpretation: Normal - General General appearance: Appears well, Alert In distress: None - HEENT Head: Normocephalic, Atraumatic Eyes: Normal Pupils: PERRL Neck: Supple. No: Lymphadenopathy - Respiratory Respiratory status: No respiratory distress Chest status: Nontender Breath sounds: Normal Chest palpation: Normal - Cardiovascular Rhythm: Regular Heart sounds: Normal auscultation Murmur: No - Abdominal Inspection: Normal Distension: No distension Bowel sounds: Normal Tenderness: No: Tender - Left pelvic Organomegaly: No organomegaly - Genitourinary External exam: Normal Speculum exam: No: Cervix closed Vaginal bleeding: Mild - old blood [place] exam: Cervical motion tender - mild - Back Back: Normal, Nontender. No: CVA tenderness - Extremities General upper extremity: Normal inspection, Nontender, Normal color, Normal ROM , Normal temperature General lower extremity: Normal inspection, Nontender, Normal color, Normal ROM , Normal temperature, Normal weight bearing. No: Silvia's sign - Neurological Neuro grossly intact: Yes Cognition: Normal Orientation: AAOx4 [place] Coma Scale Eye Opening: Spontaneous Trung Coma Scale Verbal: Oriented Trung Coma Scale Motor: Obeys Commands Trung Coma Scale Total: 15 Speech: Normal Motor strength normal: LUE, RUE, LLE, RLE Sensory: Normal - Psychological Associated symptoms: Normal affect, Normal mood - Skin Skin Temperature: Warm Skin Moisture: Dry Skin Color: Normal Course - Re-evaluation Re-evalutation: 03/17/17 23:24 Ultrasound and labs are negative - Vital Signs Vital signs: Temp Pulse Resp BP Pulse Ox 98.0 F 63 16 119/76 98 03/17/17 19:53 03/17/17 19:53 03/17/17 19:53 03/17/17 19:53 03/17/17 19:53 - Laboratory Result Diagrams: 03/17/17 20:40 03/17/17 20:40 Laboratory results interpreted by me: 03/17/17 20:40 RBC 5.43 H Hgb 16.0 H Discharge - Discharge Clinical Impression: midcycle vaginal bleeding, left SI joint pain, left pelvic pain Condition: Good Disposition: HOME, SELF-CARE Instructions: Use of Mxpj-Mwi-Hzykmwm Ibuprofen ([facility]), Low Back Pain ([facility]), Vaginal Bleeding ([facility]) Additional Instructions: stretches as shown for the sacroiliac joint pain see the chiropractor to er if worse copy of labs, imaging given to you see obgyn if spotting persists Please complete the patient satisfaction survey if you get one, and return it.. If you do not receive a survey, then you can go to the [facility] website, [email or web address] and place your comments about your very good care. Thank you very much. It was a pleasure being your medical provider today. Referrals: BITA FRANCIS, [Primary Care Provider] - Follow up as needed GIBRAN ESTEBAN MD [ACTIVE STAFF] - Follow up as needed
--- NOTE | 2017-03-17 22:52 | RADIOLOGY REPORT (SQ) ---
EXAM DESCRIPTION: U/S NON OB PEL TV W/DOPPLER COMPLETED DATE/TIME: 03/17/2017 10:26 pm REASON FOR STUDY: left pelvic pain COMPARISON: None. TECHNIQUE: Dynamic and static grayscale images acquired of the pelvis via transvaginal approach and recorded on PACS. Additional selected color Doppler and spectral images recorded. LIMITATIONS: None. FINDINGS: UTERUS: Contour normal. No mass. Uterus is 8.7 x 5.8 x 4.6 cm in size. ENDOMETRIAL STRIPE: No focal or generalized thickening. No masses. Endometrium 6 mm in thickness CERVIX: No nabothian cysts. Closed, 3.6 cm in length. RIGHT OVARY: No abnormal masses. Right ovary 3.6 x 3 x 2.4 cm in size. RIGHT OVARY DOPPLER: Normal arterial vascular flow without evidence for torsion. LEFT OVARY: No abnormal masses. Left ovary 3.0 x 2.8 x 2.3 cm in size LEFT OVARY DOPPLER: Normal arterial vascular flow without evidence for torsion. FREE FLUID: None noted. OTHER: No other significant finding. IMPRESSION: NORMAL TRANSVAGINAL PELVIC ULTRASOUND. TECHNICAL DOCUMENTATION: JOB ID: [id number] [id number]- All Rights Reserved
[2017-03-17 23:14] LABS: CHLAM PCR NOT DETECTED (NOT DETECT)
[2017-03-17] MEDS ORDERED: IBUPROFEN 800 MG TABLET PO ONE (23:53)
[2017-03-18] MEDS ORDERED: ACETAMINOPHEN 325 MG TABLET PO ONE (00:10)
[2017-03-18] MEDS ORDERED: ACETAMINOPHEN 325 MG TABLET ONE (00:16)
[2017-03-18 00:35] VITALS: BP 120/66
== END 2017-03-18 00:18 | disposition home or self-care (01) ==
LOC: ER 19:48
DX: N93.9 Abnormal uterine and vaginal bleeding, unspecified (principal); M53.3 Sacrococcygeal disorders, not elsewhere classified; R10.2 Pelvic and perineal pain
CPT/HCPCS: 36415; 76830; 80053; 81001; 83690; 84702; 85025; 87210; 87491; 87591; 93976; 99284

== ENCOUNTER 2017-07-24 21:27 | Observation (INO) | payer SELFPAY ==
--- NOTE | 2017-07-24 23:43 | ER Document Report ---
ED Medical Screen (RME) - General Chief Complaint: Abdominal Pain Stated Complaint: ABDOMINAL PAIN Time Seen by Provider: 07/24/17 23:33 Mode of Arrival: Ambulatory Information source: Patient TRAVEL OUTSIDE OF THE [place] IN LAST 30 DAYS: No - HPI Patient complains to provider of: abdo pain Onset: Yesterday Notes: 07/24/17 23:42 Patient arrives with complaints of right lower quadrant abdominal pain which started yesterday. She states that she developed some anorexia and has had some nausea and vomited yesterday but has had no vomiting since. She reports that she has had normal bowel movements today. She denies any diarrhea. She denies any fever. She complains of right lower abdominal pain. It is worse with any sort of movement and hitting any bumps on the way to the emergency department in the car because the pain to increase. She has had prior tubal ligation as well as laparoscopy and has had adhesions in the past as well. She still has her appendix and her gallbladder. On exam the patient is nontoxic appearing. She is noted to have right lower quadrant tenderness with rebound tenderness and guarding on exam. No CVA tenderness. Patient was evaluated in triage and was medically screened. Any pertinent orders based on the patient's complaints were ordered at this time. Patient will require further evaluation and will be taken to a room for further evaluation by another provider. This was explained to the patient and/or family at this time. - Related Data Allergies/Adverse Reactions: amoxicillin [Amoxicillin] Allergy (Verified 03/17/17 19:51) GI upset azithromycin [From Zithromax] Allergy (Verified 03/17/17 19:51) Hives cefaclor [From Ceclor] Allergy (Verified 03/17/17 19:51) cefprozil [From Cefzil] Allergy (Verified 03/17/17 19:51) codeine [Codeine] Allergy (Verified 03/17/17 19:51) GI upset corn [[place]] Allergy (Verified 03/17/17 19:51) gi upset/hives dextrose [Dextrose] Allergy (Verified 03/17/17 19:51) nausea,skin rash erythromycin base [Erythromycin Base] Allergy (Verified 03/17/17 19:51) hives,gi upset metoclopramide HCl [From Reglan] Allergy (Verified 03/17/17 19:51) "Skin crawls" polysorbate 80 [Polysorbate 80] Allergy (Verified 03/17/17 19:51) povidone-iodine [From Betadine] Allergy (Verified 03/17/17 19:51) chemical rash Soap [From Betadine] Allergy (Verified 03/17/17 19:51) chemical rash sorbitol [Sorbitol] Allergy (Verified 03/17/17 19:51) soy [Soy] Allergy (Verified 03/17/17 19:51) GI upset,rash Sulfa (Sulfonamide Antibiotics) Allergy (Verified 03/17/17 19:51) GI upset amoxicillin trihydrate [From Augmentin] Adverse Reaction (Severe, Verified 03/17 19:51) GI upset Potassium Clavulanate * [From Augmentin] Adverse Reaction (Severe, Verified 19:51) GI upset propofol [Propofol] Adverse Reaction (Severe, Verified 03/17/17 19:51) "EXTREME DIFFICULTY WAKING UP" succinylcholine [Succinylcholine] Adverse Reaction (Unknown, Verified 03/17/17 19:51) "STATES MOTHER HAD A BAD REACTION" TOLD NOT TO TAKE droperidol [From Inapsine] Adverse Reaction (Verified 03/17/17 19:51) Psychosis tygan Allergy (Uncoded 03/17/17 19:51) Past Medical History - Past Medical History Cardiac Medical History: Denies: Hx Congestive Heart Failure, Hx DVT, Hx Heart Attack, Hx Hypercholesterolemia, Hx Hypertension, Hx Pulmonary Embolism Pulmonary Medical History: Reports: Hx Bronchitis, Hx Pneumonia Denies: Hx Asthma, Hx COPD Neurological Medical History: 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 Denies: Hx Peritoneal Dialysis GI Medical History: Reports: Hx Irritable Bowel, Hx Colonoscopy, Hx Endoscopy. Denies: Hx Cirrhosis, Hx Gastroesophageal Reflux Disease Musculoskeltal Medical History: Reports Hx Arthritis, Reports Hx Musculoskeletal Deformity, Reports Hx Musculoskeletal Trauma Psychiatric Medical History: Reports: Hx Anxiety Denies: Hx Depression Traumatic Medical History: Reports: Hx Fractures Infectious Medical History: Denies: Hx C-Diff Past Surgical History: Reports: Hx Abdominal Surgery - laproscopy, Hx Section - x 3, Hx Nose Surgery, Hx Orthopedic Surgery - rt shoulder bicep repair , Hx Tonsillectomy, Hx Tubal Ligation. Denies: Hx Hysterectomy - Immunizations Immunizations up to date: Yes Hx Diphtheria, Pertussis, Tetanus Vaccination: Yes - 12/08/16 Physical Exam - Vital signs Vitals: Pulse 90 07/24/17 23:33 Course - Vital Signs Vital signs: Temp Pulse Resp BP Pulse Ox 90 07/24/17 23:33
[2017-07-25 00:09] LABS: ABSOLUTE EOSINOPHILS # (AUTO) 0.2 10^3/uL (0.0-0.6); ABSOLUTE LYMPHOCYTES (AUTO) 2.8 10^3/uL (0.5-4.7); ABSOLUTE MONOCYTES (AUTO) 0.5 10^3/uL (0.1-1.4); ABSOLUTE NEUT (AUTO) 4.7 10^3/uL (1.7-8.2); BASOPHILS % (AUTO) 0.4 % (0-2); EOSINOPHILS % (AUTO) 2.1 % (0-6); HEMOGLOBIN 15.9 g/dL (12.0-15.5); MEAN CORPUSCULAR HEMOGLOBIN 29.1 pg (27.0-33.4); MEAN CORPUSCULAR HGB CONC 34.6 g/dL (32.0-36.0); MEAN CORPUSCULAR VOLUME 84 fl (80-97); MONOCYTES % (AUTO) 6.2 % (3-13); PLATELET COUNT 215 10^3/uL (150-450); RED BLOOD COUNT 5.46 10^6/uL (3.72-5.28); RED CELL DISTRIBUTION WIDTH 13.6 % (11.5-14.0); SEGMENTED NEUTROPHILS % (AUTO) 57.3 % (42-78); TOTAL CELLS COUNTED % (AUTO) 100 %; WHITE BLOOD COUNT 8.1 10^3/uL (4.0-10.5)
[2017-07-25 00:32] LABS: APPEARANCE,URINE SLIGHTLY-CLOUDY; BILIRUBIN,URINE NEGATIVE (NEGATIVE); COLOR,URINE YELLOW; GLUCOSE, URINE NEGATIVE (NEGATIVE); KETONES,URINE NEGATIVE (NEGATIVE); LEUKOCYTE ESTERASE,URINE NEGATIVE (NEGATIVE); NITRITE,URINE NEGATIVE (NEGATIVE); PROTEIN,URINE NEGATIVE (NEGATIVE); UROBILINOGEN,URINE NEGATIVE mg/dL (<2.0)
[2017-07-25 00:35] LABS: ALANINE AMINOTRANSFERASE 29 U/L (9-52); ALBUMIN 4.7 g/dL (3.5-5.0); ALKALINE PHOSPHATASE 83 U/L (38-126); ANION GAP 11 (5-19); ASPARTATE AMINO TRANSFERASE 25 U/L (14-36); BILIRUBIN,DIRECT 0.3 mg/dL (0.0-0.4); BILIRUBIN,TOTAL 0.8 mg/dL (0.2-1.3); BLOOD UREA NITROGEN 19 mg/dL (7-20); CALCIUM 10.3 mg/dL (8.4-10.2); CARBON DIOXIDE 24 mmol/L (22-30); CHLORIDE 104 mmol/L (98-107); GLUCOSE 86 mg/dL (75-110); POTASSIUM 4.7 mmol/L (3.6-5.0); SODIUM 138.8 mmol/L (137-145); TOTAL PROTEIN 7.2 g/dL (6.3-8.2)
[2017-07-25] MEDS ORDERED: ONDANSETRON HCL INJ/PF 4 MG/2 ML SDV IV ONE ×2 (01:45→02:30)
[2017-07-25] MEDS ORDERED: MORPHINE SULFATE 10 MG/ML INJ IV ONE ×2 (01:45→02:30)
[2017-07-25] MEDS ORDERED: NORMAL SALINE 1000 ML 1,000 ML IV ONE (01:45)
--- NOTE | 2017-07-25 01:50 | ER Document Report ---
ED GI/ - General Chief Complaint: Abdominal Pain Stated Complaint: ABDOMINAL PAIN Time Seen by Provider: 07/24/17 23:33 Mode of Arrival: Ambulatory Notes: Patient is a 32 year old female that comes to the emergency department for chief complaint of right lower quadrant pain. She states that she has not felt good since last night, states she vomited once last night, she has had decreased appetite today. She states pain was intermittent but is now constant. 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 She denies vaginal bleeding or discharge, dysuria, pelvic pain, flank pain, fever or chills. She has had 3 C-sections, states she has had ovarian cysts and adhesions. She denies any daily medications. LMP within the past few weeks was normal. TRAVEL OUTSIDE OF THE [place] IN LAST 30 DAYS: No - Related Data Allergies/Adverse Reactions: amoxicillin [Amoxicillin] Allergy (Verified 03/17/17 19:51) GI upset azithromycin [From Zithromax] Allergy (Verified 03/17/17 19:51) Hives cefaclor [From Ceclor] Allergy (Verified 03/17/17 19:51) cefprozil [From Cefzil] Allergy (Verified 03/17/17 19:51) codeine [Codeine] Allergy (Verified 03/17/17 19:51) GI upset corn [[place]] Allergy (Verified 03/17/17 19:51) gi upset/hives dextrose [Dextrose] Allergy (Verified 03/17/17 19:51) nausea,skin rash erythromycin base [Erythromycin Base] Allergy (Verified 03/17/17 19:51) hives,gi upset metoclopramide HCl [From Reglan] Allergy (Verified 03/17/17 19:51) "Skin crawls" polysorbate 80 [Polysorbate 80] Allergy (Verified 03/17/17 19:51) povidone-iodine [From Betadine] Allergy (Verified 03/17/17 19:51) chemical rash Soap [From Betadine] Allergy (Verified 03/17/17 19:51) chemical rash sorbitol [Sorbitol] Allergy (Verified 03/17/17 19:51) soy [Soy] Allergy (Verified 03/17/17 19:51) GI upset,rash Sulfa (Sulfonamide Antibiotics) Allergy (Verified 03/17/17 19:51) GI upset amoxicillin trihydrate [From Augmentin] Adverse Reaction (Severe, Verified 03/17 19:51) GI upset Potassium Clavulanate * [From Augmentin] Adverse Reaction (Severe, Verified 19:51) GI upset propofol [Propofol] Adverse Reaction (Severe, Verified 03/17/17 19:51) "EXTREME DIFFICULTY WAKING UP" succinylcholine [Succinylcholine] Adverse Reaction (Unknown, Verified 03/17/17 19:51) "STATES MOTHER HAD A BAD REACTION" TOLD NOT TO TAKE droperidol [From Inapsine] Adverse Reaction (Verified 03/17/17 19:51) Psychosis tygan Allergy (Uncoded 03/17/17 19:51) Past Medical History - General Information source: Patient - Social History Smoking Status: Current Some Day Smoker Drug Abuse: None Lives with: Family Family History: CVA, DM, Hypertension, Malignancy, Thyroid Disfunction Patient has suicidal ideation: No Patient has homicidal ideation: No - Past Medical History Cardiac Medical History: Denies: Hx Congestive Heart Failure, Hx DVT, Hx Heart Attack, Hx Hypercholesterolemia, Hx Hypertension, Hx Pulmonary Embolism Pulmonary Medical History: Reports: Hx Bronchitis, Hx Pneumonia Denies: Hx Asthma, Hx COPD Neurological Medical History: 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 Denies: Hx Peritoneal Dialysis GI Medical History: Reports: Hx Irritable Bowel, Hx Colonoscopy, Hx Endoscopy. Denies: Hx Cirrhosis, Hx Gastroesophageal Reflux Disease Musculoskeltal Medical History: Reports Hx Arthritis, Reports Hx Musculoskeletal Deformity, Reports Hx Musculoskeletal Trauma Psychiatric Medical History: Reports: Hx Anxiety Denies: Hx Depression Traumatic Medical History: Reports: Hx Fractures Infectious Medical History: Denies: Hx C-Diff Past Surgical History: Reports: Hx Abdominal Surgery - laproscopy, Hx Section - x 3, Hx Nose Surgery, Hx Orthopedic Surgery - rt shoulder bicep repair , Hx Tonsillectomy, Hx Tubal Ligation. Denies: Hx Hysterectomy - Immunizations Immunizations up to date: Yes Hx Diphtheria, Pertussis, Tetanus Vaccination: Yes - 12/08/16 Review of Systems - Review of Systems Constitutional: No symptoms reported EENT: No symptoms reported Cardiovascular: No symptoms reported Respiratory: No symptoms reported Gastrointestinal: See HPI Genitourinary: No symptoms reported Female Genitourinary: No symptoms reported Musculoskeletal: No symptoms reported Skin: No symptoms reported Hematologic/Lymphatic: No symptoms reported Neurological/Psychological: No symptoms reported Physical Exam - Vital signs Vitals: Pulse 90 07/24/17 23:33 Interpretation: Normal - General General appearance: Appears well In distress: None - HEENT Head: Normocephalic, Atraumatic Eyes: Normal Conjunctiva: Normal Extraocular movements intact: Yes Eyelashes: Normal Pupils: PERRL Nasal: Normal Mouth/Lips: Normal Mucous membranes: Normal Pharynx: Normal Neck: Normal - Respiratory Respiratory status: No respiratory distress Chest status: Nontender Breath sounds: Normal. No: Decreased air movement, Wheezing Chest palpation: Normal - Cardiovascular Rhythm: Regular Heart sounds: Normal auscultation Murmur: No - Abdominal Inspection: Normal Distension: No distension Bowel sounds: Normal Tenderness: Tender - tender in right lower abdomen generally; patient reacts when palpated, yells when the area is released Organomegaly: No organomegaly - Back Back: Normal, Nontender. No: Tender - Extremities General upper extremity: Normal inspection, Nontender, Normal ROM, Normal strength General lower extremity: Normal inspection, Nontender, Normal ROM, Normal strength - Neurological Neuro grossly intact: Yes Cognition: Normal Orientation: AAOx4 [place] Coma Scale Eye Opening: Spontaneous [place] Coma Scale Verbal: Oriented [place]ung Coma Scale Motor: Obeys Commands [place] Coma Scale Total: 15 Speech: Normal Motor strength normal: LUE, RUE, LLE, RLE Sensory: Normal - Psychological Associated symptoms: Normal affect, Normal mood - Skin Skin Temperature: Warm Skin Moisture: Dry Skin Color: Normal Course - Re-evaluation Re-evalutation: CBC shows mildly elevated hemoglobin, no leukocytosis or bandemia. Chemistry unremarkable. Urinalysis unremarkable. HCG is negative. Patient is well-appearing on my exam, however when the right lower quadrant is palpated at McBurney's point she has a pain reaction, she appears to have rebound tenderness. This is repeatable. Slightly questionable however based on her level of severe reaction, cannot rule out a psychiatric component. No CVA tenderness. Vital signs unremarkable. CAT scan was performed to rule out acute appendicitis based on the location of her pain and the severity. Patient has been kept n.p.o. CAT scan with no acute findings, incidental punctate right nephrolithiasis with no evidence of a passing stone. Normal visualized appendix. Reevaluated patient, discussed normal findings and different possibilities. I reexamined her abdomen and her abdominal exam is unchanged with only pain in the right lower quadrant and severe reaction with rebound testing. Discussed with patient, she will have evaluation by a surgeon. Discussed with Dr. Kenny, patient will be evaluated. 07/25/17 07:45 Dr. Pantoja has evaluated the patient, patient will be admitted for observation. - Vital Signs Vital signs: Temp Pulse Resp BP Pulse Ox 90 17 116/75 97 07/24/17 23:33 07/25/17 06:00 07/25/17 04:30 07/25/17 06:00 - Laboratory Result Diagrams: 07/24/17 23:50 07/24/17 23:50 Laboratory results interpreted by me: 07/24/17 07/24/17 23:50 23:50 RBC 5.46 H Hgb 15.9 H Calcium 10.3 H Discharge - Discharge Clinical Impression: Right lower quadrant pain Condition: Stable Disposition: ADMITTED OBSERVATION Admitting Provider: Surgicalist Unit Admitted: Surgical Floor Referrals: BITA FRANCIS DO [Primary Care Provider] - Follow up as needed
--- NOTE | 2017-07-25 05:11 | RADIOLOGY REPORT (SQ) ---
EXAM DESCRIPTION: CT ABDOMEN AND PELVIS WITH CONTRAST CLINICAL HISTORY: RLQ pain COMPARISON: 05/06/2014 TECHNIQUE: CT of the abdomen and pelvis are performed during IV bolus administration of 80.1 mL of Isovue-370. DLP: 531.90 mGycm FINDINGS: Abdomen: The liver has normal size and density. No intrahepatic mass or biliary dilatation. No calcified gallstones. The spleen, pancreas, and adrenal glands are unremarkable. The kidneys have normal size and contour without evidence of solid mass or hydronephrosis. Punctate nonobstructing right renal calculus. The aorta and IVC have normal caliber and position. The portal vein patent. The proximal visceral and renal arteries are patent. No free intraperitoneal air. The stomach and duodenum have normal course. Pelvis: Uterus is not enlarged. Urinary bladder is unremarkable. No free pelvic fluid or lymphadenopathy. No dilated loops of large or small bowel. Normal appendix. The visualized lung bases are clear. No destructive bone lesions identified. IMPRESSION: 1. No acute inflammatory or obstructive abnormality identified. 2. Punctate nonobstructing right renal calculus. This exam was performed according to our departmental dose-optimization program, which includes automated exposure control, adjustment of the mA and/or kV according to patient size and/or use of iterative reconstruction technique.
--- NOTE | 2017-07-25 08:38 | PDOC H&P ---
History of Present Illness Admission Date/PCP: 07/25/17 07:53 BITA FRANCIS DO History of Present Illness: JESUS ALBERTO PARADA is a 32 year old female 36 hour history of right lower quadrant pain, with accompanying vomiting 2, and no change in bowel habits. Patient denies urinary symptoms, vaginal discharge, history of ovarian cysts. Patient was found to have right lower quadrant tenderness, with some guarding. However , the CT scan showed no evidence of appendicitis. Surgical referral has been made. Past Medical History Cardiac Medical History: Denies: Congestive Heart Failure, DVT, Myocardial Infarction, Hyperlipidema, Hypertension, Pulmonary Embolism Pulmonary Medical History: Reports: Bronchitis, Pneumonia Denies: Asthma, Chronic Obstructive Pulmonary Disease (COPD) Neurological Medical History: Reports: Seizures - "Psychogenic"; never rx'd antiepileptics. Comment Only: Migraine - frequent HAs no migraine dx Endocrine Medical History: Denies: Diabetes Mellitus Type 1, Diabetes Mellitus Type 2, Hyperthyroidism, Hypothyroidism GI Medical History: Denies: Cirrhosis, Gastroesophageal Reflux Disease Musculoskeltal Medical History: Reports: Arthritis Psychiatric Medical History: Denies: Depression Hematology: Reports: Anemia - 2009 iron,bleeding post c section Infectious Medical History: Denies: Clostridium Difficile Past Surgical History Past Surgical History: Reports: Section - x 3, Orthopedic Surgery - rt shoulder bicep repair, Tonsillectomy, Tubal Ligation Denies: Hysterectomy Social History Lives with: Family Smoking Status: Current Some Day Smoker Frequency of Alcohol Use: Social Hx Recreational Drug Use: No Drugs: None Hx Prescription Drug Abuse: No Family History Family History: CVA, DM, Hypertension, Malignancy, Thyroid Disfunction Parental Family History Reviewed: No Children Family History Reviewed: No Sibling(s) Family History Reviewed.: No Medication/Allergy Allergies/Adverse Reactions: amoxicillin [Amoxicillin] Allergy (Verified 03/17/17 19:51) GI upset azithromycin [From Zithromax] Allergy (Verified 03/17/17 19:51) Hives cefaclor [From Ceclor] Allergy (Verified 03/17/17 19:51) cefprozil [From Cefzil] Allergy (Verified 03/17/17 19:51) codeine [Codeine] Allergy (Verified 03/17/17 19:51) GI upset corn [[place]gora] Allergy (Verified 03/17/17 19:51) gi upset/hives dextrose [Dextrose] Allergy (Verified 03/17/17 19:51) nausea,skin rash erythromycin base [Erythromycin Base] Allergy (Verified 03/17/17 19:51) hives,gi upset metoclopramide HCl [From Reglan] Allergy (Verified 03/17/17 19:51) "Skin crawls" polysorbate 80 [Polysorbate 80] Allergy (Verified 03/17/17 19:51) povidone-iodine [From Betadine] Allergy (Verified 03/17/17 19:51) chemical rash Soap [From Betadine] Allergy (Verified 03/17/17 19:51) chemical rash sorbitol [Sorbitol] Allergy (Verified 03/17/17 19:51) soy [Soy] Allergy (Verified 03/17/17 19:51) GI upset,rash Sulfa (Sulfonamide Antibiotics) Allergy (Verified 03/17/17 19:51) GI upset amoxicillin trihydrate [From Augmentin] Adverse Reaction (Severe, Verified 03/17 19:51) GI upset Potassium Clavulanate * [From Augmentin] Adverse Reaction (Severe, Verified 19:51) GI upset propofol [Propofol] Adverse Reaction (Severe, Verified 03/17/17 19:51) "EXTREME DIFFICULTY WAKING UP" succinylcholine [Succinylcholine] Adverse Reaction (Unknown, Verified 03/17/17 19:51) "STATES MOTHER HAD A BAD REACTION" TOLD NOT TO TAKE droperidol [From Inapsine] Adverse Reaction (Verified 03/17/17 19:51) Psychosis tygan Allergy (Uncoded 03/17/17 19:51) Physical Exam Vital Signs: Temp Pulse Resp BP Pulse Ox 90 17 116/75 97 07/24/17 23:33 07/25/17 06:00 07/25/17 04:30 07/25/17 06:00 General appearance: PRESENT: cooperative, mild distress, well-developed, well- nourished Head exam: PRESENT: atraumatic, normocephalic Eye exam: PRESENT: conjunctiva pink, EOMI, PERRLA Neck exam: PRESENT: full ROM. ABSENT: JVD, lymphadenopathy, tenderness, thyromegaly, tracheal deviation Respiratory exam: PRESENT: clear to auscultation lelia, symmetrical, unlabored Cardiovascular exam: PRESENT: RRR GI/Abdominal exam: PRESENT: guarding - Minimal, normal bowel sounds, soft, tenderness - RLQ. ABSENT: rebound, rigid Rectal exam: PRESENT: deferred Results Impressions: Abdomen/Pelvis CT 07/25/17 00:00 IMPRESSION: 1. No acute inflammatory or obstructive abnormality identified. 2. Punctate nonobstructing right renal calculus. This exam was performed according to our departmental dose-optimization program, which includes automated exposure control, adjustment of the mA and/or kV according to patient size and/or use of iterative reconstruction technique. Assessment & Plan - Diagnosis (1) Acute abdominal pain Is this a current diagnosis for this admission?: Yes - Plan Summary Plan Summary: We will admit the patient to the hospital, and withhold antibiotics, analgesics , and antipyretics, as we will observe her for progression of her pain.
[2017-07-25] MEDS: ENOXAPARIN SODIUM INJ 40 MG/0.4 ML DISP.SYRIN SUBCUT SCH (09:59)
[2017-07-25] MEDS: NORMAL SALINE 1000 ML 1,000 ML IV PRN ×2 (10:00→20:14)
[2017-07-25] MEDS ORDERED: ONDANSETRON HCL INJ/PF 4 MG/2 ML SDV ONE (11:39)
[2017-07-25] MEDS ORDERED: GLYCOPYRROLATE INJ 0.4 MG/2 ML VIAL ONE (11:39)
[2017-07-25] MEDS ORDERED: DEXAMETHASONE SOD PHOSPHATE INJ 4 MG/1 ML VIAL ONE (11:39)
[2017-07-25] MEDS ORDERED: ETOMIDATE INJ/PF 20 MG/10 ML SDV IV ONE (11:39)
[2017-07-25] MEDS ORDERED: PHENYLEPHRINE HCL INJ/PF 10 MG/1 ML SDV ONE (11:39)
[2017-07-25] MEDS ORDERED: NEOSTIGMINE METHYLSULFATE 10 MG/10 ML VIAL ONE (11:39)
[2017-07-25] MEDS ORDERED: SUCCINYLCHOLINE CHLORIDE INJ 200 MG/10 ML VIAL ONE (11:39)
[2017-07-25] MEDS ORDERED: OXYCODONE-ACETAMINOPHEN 5-325 MG TABLET PO PRN (15:52)
[2017-07-25] MEDS: ONDANSETRON HCL INJ/PF 4 MG/2 ML SDV IV PRN ×2 (17:23→22:00)
[2017-07-25] MEDS ORDERED: DEXTROSE 50%-WATER 25 GM/50 ML DISP.SYRIN IV PRN ×2 (19:33)
[2017-07-25] MEDS ORDERED: GLUCAGON,HUMAN RECOMB 1 MG INJ SUBCUT PRN (19:33)
[2017-07-25] MEDS ORDERED: DEXTROSE 40% GEL 15 GM TUBE PO PRN ×2 (19:33)
--- NOTE | 2017-07-25 19:38 | PDOC PROGRESS REPORT ---
Subjective Progress Note for:: 07/25/17 Subjective:: Continues to complain of right lower quadrant pain, with no improvement. Patient has had 3 C-sections, and has had a right ovarian cyst in the past. She was told at the last , that she had tremendous amount of scar tissue in the right lower quadrant involving the cyst. Reason For Visit: ABDOMINAL PAIN,R/O ACUTE APPENDICITIS(DOUBTFUL) Physical Exam Vital Signs: Temp Pulse Resp BP Pulse Ox 97.7 F 59 L 16 114/74 95 07/25/17 15:51 07/25/17 15:51 07/25/17 15:51 07/25/17 15:51 07/25/17 15:51 Intake & Output 07/24/17 07/25/17 07/26/17 06:59 06:59 06:59 Weight 61.235 kg GI/Abdominal exam: PRESENT: normal bowel sounds, soft, tenderness - Persists in the RLQ. ABSENT: distended, guarding, rebound Results Impressions: Abdomen/Pelvis CT 07/25/17 00:00 IMPRESSION: 1. No acute inflammatory or obstructive abnormality identified. 2. Punctate nonobstructing right renal calculus. This exam was performed according to our departmental dose-optimization program, which includes automated exposure control, adjustment of the mA and/or kV according to patient size and/or use of iterative reconstruction technique. Assessment & Plan - Diagnosis (1) Acute abdominal pain Is this a current diagnosis for this admission?: Yes - Plan Summary Plan Summary: If patient's tenderness has not subsided by the morning, plan for diagnostic laparoscopy, possible lysis of adhesions, possible exploratory laparotomy.
[2017-07-25] MEDS: HYDROCODONE/ACETAMINOPHEN 5-325 MG TABLET PO PRN (22:00)
[2017-07-25] MEDS ORDERED: PANTOPRAZOLE SODIUM 40 MG VIAL IV ONE (22:00)
[2017-07-26] MEDS ORDERED: BUPIVACAINE HCL 0.25 % INJ/PF (2.5 MG/1 ML) 30 ML VIAL ONE (07:43)
[2017-07-26] MEDS ORDERED: BUPIVACAINE HCL 0.5 % INJ/PF 30 ML SDV ONE (07:45)
[2017-07-26] MEDS ORDERED: MIDAZOLAM 2 MG/2 ML INJ ONE (08:37)
[2017-07-26] MEDS ORDERED: FENTANYL CITRATE INJ/PF 100 MCG/2 ML AMPUL ONE ×2 (08:38→10:42)
[2017-07-26] MEDS ORDERED: PROPOFOL INJ 200 MG/20 ML VIAL IV ONE (08:39)
[2017-07-26] MEDS ORDERED: ACETAMINOPHEN 100 ML IV ONE (08:39)
[2017-07-26] MEDS ORDERED: CEFAZOLIN INJ 1 GM VIAL ONE ×2 (09:18→09:42)
--- NOTE | 2017-07-26 10:34 | Brief Operative Note ---
BRIEF OPERATIVE REPORT DATE OF SURGERY: 07/26/17 TIME OF SURGERY: 09:30 PREOPERATIVE DIAGNOSIS: RLQ abdominal pain POSTOPERATIVE DIAGNOSIS: Few small bilateral Ovarian Cysts SURGEON: JERMAINE CANO FINDINGS: Few small bilateral ovarian cysts COMPLICATIONS: None ESTIMATED BLOOD LOSS: 20cc TISSUE REMOVED OR ALTERED: Appendix TECHNICAL PROCEDURE: Laparoscopic Appendectomy
[2017-07-26] MEDS: FENTANYL CITRATE INJ/PF 100 MCG/2 ML AMPUL ONE ×2 (10:55→10:59)
--- NOTE | 2017-07-26 11:05 | OPERATIVE REPORT E ---
Operative Report NAME: JESUS ALBERTO PARADA : 1985 AGE: 32Y DATE OF SURGERY: 07/26/2017 ROOM: 220 PREOPERATIVE DIAGNOSIS: Right lower quadrant abdominal pain. POSTOPERATIVE DIAGNOSIS: Few bilateral ovarian cysts. PROCEDURE: Diagnostic laparoscopy, in OR [facility] consultation, and laparoscopic appendectomy. SURGEON: JERMAINE CANO M.D. ANESTHESIA: General. REPLACEMENT: Crystalloids. DRAINS: None. COMPLICATIONS: None. CONDITION: Stable. FINDINGS: The patient had a few bilateral ovarian cysts. This was visualized by Dr. Moore who was present in the operating room and did take a peek. There was no evidence of any significant or unusual [facility] pathology that needed to be addressed and appendectomy was performed. PROCEDURE: Patient was brought to the operating room suite and placed in a supine position on the operating room table. Monitoring devices were attached. IV sedation was administered followed by the induction of general endotracheal anesthesia. The patient's abdomen was prepped and draped in the usual sterile manner and then a transverse incision was made just below the umbilicus. The incision was carried through skin and subcutaneous tissue down to the linea alba. Linea alba was divided and the peritoneal lining was grasped and opened and the abdominal cavity was entered. Digital exploration was done to ensure that there were no viscera adherent to the anterior abdominal wall and then the Andreina trocar was inserted. This was secured using the two 0-Vicryl stay sutures and insufflation was begun with CO2. Once intra-abdominal pressure of 16 mmHg was reached, the laparoscopic camera and light source were inserted and laparoscopic visualization was performed of the entire pelvis. The patient was noted to have a few small bilateral ovarian cysts which were inspected by Dr. Moore who came to the OR just to visualize the findings. He stated that there was no need for any intervention other than hormonal therapy as the cysts were not that big. We then proceeded to place the patient in the Trendelenburg position and turned the patient to the left with the right side up. We identified the cecum and lifted it and identified the appendix. An opening was made in the mesoappendix and the endoscopic HILARY was used to divide the mesoappendix and the appendix simultaneously. The staple line was noted to be intact and once there was adequate hemostasis noted we placed the appendix in the Endobag and removed it from the abdominal cavity. We placed the patient back in the flat position and irrigated the right lower quadrant and found no evidence of any bleeding. We then removed all trocars under direct vision and decompressed the abdomen. The infraumbilical incision site and the fascia was closed using 0 Vicryl on the UR6 needle and after closing this fascial defect all skin incisions were approximated using 4-0 Vicryl subcuticular closure. The patient tolerated the procedure well. Sponge, needle and instrument count was correct. The patient was discharged to the PACU in stable condition. DICTATING PHYSICIAN: JERMAINE CANO M.D. [id number] PHY#: [id number] ID: [id number] JOB#: [id number] ACCT: [id number] cc:JERMAINE CANO M.D. >
[2017-07-26] MEDS: ENOXAPARIN SODIUM INJ 40 MG/0.4 ML DISP.SYRIN SUBCUT SCH ×2 (11:43→12:47)
[2017-07-26] MEDS: ONDANSETRON HCL INJ/PF 4 MG/2 ML SDV IV PRN ×3 (11:51→21:16)
[2017-07-26] MEDS: HYDROMORPHONE HCL INJ/PF 2 MG/ML AMPULE IV PRN ×4 (12:11→22:41)
[2017-07-26] MEDS: NORMAL SALINE 1000 ML 1,000 ML IV PRN (17:08)
[2017-07-27] MEDS: HYDROMORPHONE HCL INJ/PF 2 MG/ML AMPULE IV PRN (03:08)
[2017-07-27] MEDS: NORMAL SALINE 1000 ML 1,000 ML IV PRN (03:09)
[2017-07-27] MEDS: ONDANSETRON HCL INJ/PF 4 MG/2 ML SDV IV PRN ×4 (03:09→16:20)
[2017-07-27] MEDS: HYDROCODONE/ACETAMINOPHEN 5-325 MG TABLET PO PRN ×2 (07:58→12:46)
[2017-07-27 17:59] VITALS: BP 109/76
--- NOTE | 2017-07-27 19:04 | PDOC DISCHARGE SUMMARY ---
General - Admit/Disc Date/PCP Admission Date/Primary Care Provider: 07/25/17 07:53 BITA TITO, Discharge Date: 07/27/17 - Discharge Diagnosis (1) Acute abdominal pain Is this a current diagnosis for this admission?: Yes - Additional Information Resuscitation Status: Full Code Discharge Diet: Regular Discharge Activity: Activity As Tolerated, Balance Activity w/Rest, No Driving Home Medications: Ascorbic Acid [Vitamin C 500 mg Tablet] 500 mg PO DAILY 07/25/17 Multivitamin,Stress Formula [Stress Formula] 1 tab PO DAILY 07/25/17 History of Present Illness Patient complains of: She was admitted to the hospital for abdominal pain History of Present Illness: JESUS ALBERTO PARADA is a 32 year old female Hospital Course Hospital Course: CT scan was unrevealing. Patient was taken to the operating room for diagnostic laparoscopy. During this procedure her appendix was removed. Procedure was done on 07/26/[address] Mcfadden. Stop early and she is very well. She is back on a diet and ambulating. She wishes to go home. Physical Exam Vital Signs: Temp Pulse Resp BP Pulse Ox 98.1 F 72 18 109/76 99 07/27/17 17:52 07/27/17 17:52 07/27/17 17:52 07/27/17 17:52 07/27/17 17:52 Intake & Output 07/26/17 07/27/17 07/28/17 06:59 06:59 06:59 Intake Total 1600 5550 240 Output Total 710 Balance 1600 4840 240 Weight 67.2 kg 66.7 kg Results Impressions: Abdomen/Pelvis CT 07/25/17 00:00 IMPRESSION: 1. No acute inflammatory or obstructive abnormality identified. 2. Punctate nonobstructing right renal calculus. This exam was performed according to our departmental dose-optimization program, which includes automated exposure control, adjustment of the mA and/or kV according to patient size and/or use of iterative reconstruction technique. Plan Discharge Plan: Discharge home. Dietary and physical activity instructions were discussed. Return to work was discussed. Pain medicine [facility] 10/31/2024 and [place].
== END 2017-07-27 18:58 | disposition home or self-care (01) ==
LOC: ER 21:27 → EH 07-25 07:53 → 2S 07-25 10:44
PROVIDERS: ATTEND Surgery
PROC: 0DTJ4ZZ Resection of Appendix, Percutaneous Endoscopic Approach (ICD-10-PCS; principal; 2017-07-26 08:45)
DX: K35.80 Unspecified acute appendicitis (principal); N83.202 Unspecified ovarian cyst, left side; N83.201 Unspecified ovarian cyst, right side; N20.0 Calculus of kidney; F17.200 Nicotine dependence, unspecified, uncomplicated; Z98.51 Tubal ligation status; Z98.890 Other specified postprocedural states; Z87.19 Personal history of other diseases of the digestive system
CPT/HCPCS: 96376; 99285; 96372; 96361; 96374; 96375; 36415; 83690; 84703; 85025; 80053; 81001; 88304 ×2; 74177; 44970; G0378 ×3; J2250; J0690; J1100; J3010; J2270; J1650; J1170 ×2; J2370; S0164; J0330; J2405 ×3; J7030 ×3; J2704; J3490; J0131; 840

== ENCOUNTER 2018-05-11 13:24 | Emergency (ER) | payer SELFPAY ==
--- NOTE | 2018-05-11 13:47 | ER Document Report ---
ED Medical Screen (RME) - General Chief Complaint: Pelvic Pain Stated Complaint: PELVIC PAIN Time Seen by Provider: 05/11/18 13:46 Mode of Arrival: Ambulatory Information source: Patient TRAVEL OUTSIDE OF THE [place] IN LAST 30 DAYS: No - HPI Patient complains to provider of: pelvic pain Onset: Other - pt. with above c/o wqith discharge for the past week with exacerbation today - Related Data Allergies/Adverse Reactions: amoxicillin [Amoxicillin] Allergy (Verified 05/11/18 13:36) GI upset azithromycin [From Zithromax] Allergy (Verified 05/11/18 13:36) Hives cefaclor [From Ceclor] Allergy (Verified 05/11/18 13:36) cefprozil [From Cefzil] Allergy (Verified 05/11/18 13:36) codeine [Codeine] Allergy (Verified 05/11/18 13:36) GI upset corn [Paisley] Allergy (Verified 05/11/18 13:36) gi upset/hives dextrose [Dextrose] Allergy (Verified 05/11/18 13:36) nausea,skin rash erythromycin base [Erythromycin Base] Allergy (Verified 05/11/18 13:36) hives,gi upset metoclopramide HCl [From Reglan] Allergy (Verified 05/11/18 13:36) "Skin crawls" polysorbate 80 [Polysorbate 80] Allergy (Verified 05/11/18 13:36) povidone-iodine [From Betadine] Allergy (Verified 05/11/18 13:36) chemical rash Soap [From Betadine] Allergy (Verified 05/11/18 13:36) chemical rash sorbitol [Sorbitol] Allergy (Verified 05/11/18 13:36) soy [Soy] Allergy (Verified 05/11/18 13:36) GI upset,rash Sulfa (Sulfonamide Antibiotics) Allergy (Verified 05/11/18 13:36) GI upset amoxicillin trihydrate [From Augmentin] Adverse Reaction (Severe, Verified 05/11 13:36) GI upset Potassium Clavulanate * [From Augmentin] Adverse Reaction (Severe, Verified 05/18 13:36) GI upset propofol [Propofol] Adverse Reaction (Severe, Verified 05/11/18 13:36) "EXTREME DIFFICULTY WAKING UP" succinylcholine [Succinylcholine] Adverse Reaction (Unknown, Verified 05/11/18 13:36) "STATES MOTHER HAD A BAD REACTION" TOLD NOT TO TAKE droperidol [From Inapsine] Adverse Reaction (Verified 05/11/18 13:36) Psychosis tygan Allergy (Uncoded 05/11/18 13:36) Past Medical History - Past Medical History Cardiac Medical History: Denies: Hx Congestive Heart Failure, Hx DVT, Hx Heart Attack, Hx Hypercholesterolemia, Hx Hypertension, Hx Pulmonary Embolism Pulmonary Medical History: Reports: Hx Bronchitis, Hx Pneumonia Denies: Hx Asthma, Hx COPD Neurological Medical History: 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 Denies: Hx Peritoneal Dialysis GI Medical History: Reports: Hx Irritable Bowel, Hx Colonoscopy, Hx Endoscopy. Denies: Hx Cirrhosis, Hx Gastroesophageal Reflux Disease Musculoskeltal Medical History: Reports Hx Arthritis, Reports Hx Musculoskeletal Deformity, Reports Hx Musculoskeletal Trauma Psychiatric Medical History: Reports: Hx Anxiety Denies: Hx Depression Traumatic Medical History: Reports: Hx Fractures Infectious Medical History: Denies: Hx C-Diff Past Surgical History: Reports: Hx Abdominal Surgery - laproscopy, Hx Section - x 3, Hx Nose Surgery, Hx Orthopedic Surgery - rt shoulder bicep repair , Hx Tonsillectomy, Hx Tubal Ligation. Denies: Hx Hysterectomy - Immunizations Immunizations up to date: Yes Hx Diphtheria, Pertussis, Tetanus Vaccination: Yes - 12/08/16 History of Influenza Vaccine for 03/2017 - 08/2017 Season: Refused Doctor's Discharge - Discharge Referrals: BITA FRANCIS DO [Primary Care Provider] - Follow up as needed
[2018-05-11 13:51] VITALS: BP 113/74
[2018-05-11 14:31] LABS: ABSOLUTE EOSINOPHILS # (AUTO) 0.4 10^3/uL (0.0-0.6); ABSOLUTE LYMPHOCYTES (AUTO) 2.1 10^3/uL (0.5-4.7); ABSOLUTE MONOCYTES (AUTO) 0.5 10^3/uL (0.1-1.4); ABSOLUTE NEUT (AUTO) 4.1 10^3/uL (1.7-8.2); BASOPHILS % (AUTO) 0.4 % (0-2); EOSINOPHILS % (AUTO) 4.9 % (0-6); HEMATOCRIT 42.8 % (36.0-47.0); HEMOGLOBIN 14.6 g/dL (12.0-15.5); LYMPHOCYTES % (AUTO) 29.6 % (13-45); MEAN CORPUSCULAR HEMOGLOBIN 29.5 pg (27.0-33.4); MEAN CORPUSCULAR HGB CONC 34.1 g/dL (32.0-36.0); MEAN CORPUSCULAR VOLUME 87 fl (80-97); MONOCYTES % (AUTO) 7.3 % (3-13); PLATELET COUNT 212 10^3/uL (150-450); RED BLOOD COUNT 4.95 10^6/uL (3.72-5.28); RED CELL DISTRIBUTION WIDTH 13.6 % (11.5-14.0); SEGMENTED NEUTROPHILS % (AUTO) 57.8 % (42-78); TOTAL CELLS COUNTED % (AUTO) 100 %; WHITE BLOOD COUNT 7.1 10^3/uL (4.0-10.5)
[2018-05-11 14:36] LABS: APPEARANCE,URINE CLEAR; BILIRUBIN,URINE NEGATIVE (NEGATIVE); COLOR,URINE STRAW; GLUCOSE, URINE NEGATIVE (NEGATIVE); KETONES,URINE NEGATIVE (NEGATIVE); LEUKOCYTE ESTERASE,URINE NEGATIVE (NEGATIVE); NITRITE,URINE NEGATIVE (NEGATIVE); PROTEIN,URINE NEGATIVE (NEGATIVE); URINE SPECIFIC GRAVITY 1.006; UROBILINOGEN,URINE NEGATIVE mg/dL (<2.0)
[2018-05-11 14:45] LABS: ALANINE AMINOTRANSFERASE 18 U/L (9-52); ALBUMIN 4.2 g/dL (3.5-5.0); ALKALINE PHOSPHATASE 65 U/L (38-126); ANION GAP 11 (5-19); ASPARTATE AMINO TRANSFERASE 25 U/L (14-36); BILIRUBIN,DIRECT 0.3 mg/dL (0.0-0.4); BILIRUBIN,TOTAL 0.7 mg/dL (0.2-1.3); BLOOD UREA NITROGEN 10 mg/dL (7-20); CALCIUM 9.7 mg/dL (8.4-10.2); CARBON DIOXIDE 28 mmol/L (22-30); CHLORIDE 104 mmol/L (98-107); GLUCOSE 78 mg/dL (75-110); POTASSIUM 5.4 mmol/L (3.6-5.0); TOTAL PROTEIN 6.6 g/dL (6.3-8.2)
--- NOTE | 2018-05-11 16:10 | RADIOLOGY REPORT (SQ) ---
EXAM DESCRIPTION: U/S NON OB PEL TV W/DOPPLER COMPLETED DATE/TIME: 05/11/2018 3:31 pm REASON FOR STUDY: pelvic pain COMPARISON: 07/25/2017 and earlier TECHNIQUE: Dynamic and static grayscale images acquired of the pelvis via transvaginal approach and recorded on PACS. Additional selected color Doppler and spectral images recorded. LIMITATIONS: None. FINDINGS: UTERUS: Contour normal. No mass. ENDOMETRIAL STRIPE: No focal or generalized thickening. No masses. CERVIX: Few nabothian cysts. Trace fluid within the cervix. RIGHT OVARY AND DOPPLER: Normal size. No worrisome masses. Normal arterial vascular flow without evid ence for torsion. LEFT OVARY AND DOPPLER: Normal size. No worrisome masses. Normal arterial vascular flow without evide nce for torsion. FREE FLUID: None noted. OTHER: No other significant finding. MEASUREMENTS: UTERUS: 9.6 x 7.4 x 5.5 cm ENDOMETRIAL STRIPE: 11 mm RIGHT OVARY: 3.4 x 2.6 x 2.5 cm LEFT OVARY: 4.2 x 2.5 x 2.7 cm IMPRESSION: NORMAL TRANSVAGINAL PELVIC ULTRASOUND. TECHNICAL DOCUMENTATION: JOB ID: [id number] All Rights Reserved Rev-11/15 Reading location - IP/workstation name: [email or web address]
--- NOTE | 2018-05-11 16:45 | ER Document Report ---
ED GI/ - General Chief Complaint: Pelvic Pain Stated Complaint: PELVIC PAIN Time Seen by Provider: 05/11/18 13:46 Mode of Arrival: Ambulatory Information source: Patient Notes: 33-year-old female presents to ED for complaint of pelvic pain with white discharge for the past week. She states she had a increase in pain today. She states the white discharge is like a cottage cheese. Patient is alert and oriented respirations regular and unlabored speaking in full sentences walking with a even steady gait. TRAVEL OUTSIDE OF THE [place] IN LAST 30 DAYS: No - HPI Patient complains to provider of: Pelvic pain, Vaginal discharge Onset: Last week Timing/Duration: Gradual, Worse Quality of pain: Achy Severity at maximum: Moderate Severity in ED: Moderate Pain Level: 4 Location: Pelvis Vaginal bleeding (Compared to normal period): None Associated symptoms: Vaginal discharge, Other - Pelvic pain Exacerbated by: Walking Relieved by: Denies Similar symptoms previously: Yes Recently seen / treated by doctor: No - Related Data Allergies/Adverse Reactions: amoxicillin [Amoxicillin] Allergy (Verified 05/11/18 13:36) GI upset azithromycin [From Zithromax] Allergy (Verified 05/11/18 13:36) Hives cefaclor [From Ceclor] Allergy (Verified 05/11/18 13:36) cefprozil [From Cefzil] Allergy (Verified 05/11/18 13:36) codeine [Codeine] Allergy (Verified 05/11/18 13:36) GI upset corn [[place]] Allergy (Verified 05/11/18 13:36) gi upset/hives dextrose [Dextrose] Allergy (Verified 05/11/18 13:36) nausea,skin rash erythromycin base [Erythromycin Base] Allergy (Verified 05/11/18 13:36) hives,gi upset metoclopramide HCl [From Reglan] Allergy (Verified 05/11/18 13:36) "Skin crawls" polysorbate 80 [Polysorbate 80] Allergy (Verified 05/11/18 13:36) povidone-iodine [From Betadine] Allergy (Verified 05/11/18 13:36) chemical rash Soap [From Betadine] Allergy (Verified 05/11/18 13:36) chemical rash sorbitol [Sorbitol] Allergy (Verified 05/11/18 13:36) soy [Soy] Allergy (Verified 05/11/18 13:36) GI upset,rash Sulfa (Sulfonamide Antibiotics) Allergy (Verified 05/11/18 13:36) GI upset amoxicillin trihydrate [From Augmentin] Adverse Reaction (Severe, Verified 05/11 13:36) GI upset Potassium Clavulanate * [From Augmentin] Adverse Reaction (Severe, Verified 05/18 13:36) GI upset propofol [Propofol] Adverse Reaction (Severe, Verified 05/11/18 13:36) "EXTREME DIFFICULTY WAKING UP" succinylcholine [Succinylcholine] Adverse Reaction (Unknown, Verified 05/11/18 13:36) "STATES MOTHER HAD A BAD REACTION" TOLD NOT TO TAKE droperidol [From Inapsine] Adverse Reaction (Verified 05/11/18 13:36) Psychosis tygan Allergy (Uncoded 05/11/18 13:36) Past Medical History - General Information source: Patient - Social History Smoking Status: Never Smoker Frequency of alcohol use: Social Drug Abuse: None Family History: CVA, DM, Hypertension, Malignancy, Thyroid Disfunction Patient has suicidal ideation: No Patient has homicidal ideation: No - Past Medical History Cardiac Medical History: Reports: None Pulmonary Medical History: Reports: Hx Bronchitis, Hx Pneumonia Neurological Medical History: Reports: Hx Seizures - "Psychogenic"; 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 rx'd antiepileptics.Comment Only: Hx Migraine - frequent HAs no migraine dx Endocrine Medical History: Reports: None Renal/ Medical History: Reports: Hx Kidney Stones, Hx Ovarian Cysts Malignancy Medical History: Reports: None GI Medical History: Reports: Hx Irritable Bowel, Hx Colonoscopy, Hx Endoscopy Musculoskeletal Medical History: Reports Hx Arthritis, Reports Hx Musculoskeletal Deformity, Reports Hx Musculoskeletal Trauma Skin Medical History: Reports None Psychiatric Medical History: Reports: Hx Anxiety Traumatic Medical History: Reports: None Infectious Medical History: Reports: None Past Surgical History: Reports: Hx Abdominal Surgery - laproscopy, Hx Section - x 3, Hx Nose Surgery, Hx Orthopedic Surgery - rt shoulder bicep repair , Hx Tonsillectomy, Hx Tubal Ligation. Denies: Hx Hysterectomy - Immunizations Immunizations up to date: Yes Hx Diphtheria, Pertussis, Tetanus Vaccination: Yes - 12/08/16 Review of Systems - Review of Systems Notes: REVIEW OF SYSTEMS: CONSTITUTIONAL : Denies fever, chills, or sweats. Denies recent illness. EENT: Denies eye, ear, throat, or mouth pain or symptoms. Denies nasal or sinus congestion or discharge. Denies throat, tongue, or mouth swelling or difficulty swallowing. CARDIOVASCULAR: Denies chest pain. Denies palpitations or racing or irregular heart beat. Denies ankle edema. RESPIRATORY: Denies cough, cold, or chest congestion. Denies shortness of breath, difficulty breathing, or wheezing. GASTROINTESTINAL: Denies abdominal pain or distention. Denies nausea, vomiting , or diarrhea. Denies blood in vomitus, stools, or per rectum. Denies black, tarry stools. Denies constipation. GENITOURINARY: Denies difficulty urinating, painful urination, burning, frequency, blood in urine, or discharge. FEMALE GENITOURINARY: Denies vaginal bleeding, heavy or abnormal periods, irregular periods. Patient complains of pelvic pain, vaginal discharge and foul odor. MUSCULOSKELETAL: Denies back or neck pain or stiffness. Denies joint pain or swelling. SKIN: Denies rash, lesions or sores. HEMATOLOGIC : Denies easy bruising or bleeding. LYMPHATIC: Denies swollen, enlarged glands. NEUROLOGICAL: Denies confusion or altered mental status. Denies passing out or loss of consciousness. Denies dizziness or lightheadedness. Denies headache. Denies weakness or paralysis or loss of use of either side. Denies problems with gait or speech. Denies sensory loss, numbness, or tingling. Denies seizures. PHYSICAL EXAMINATION: GENERAL: Well-appearing, well-nourished and in no acute distress. HEAD: Atraumatic, normocephalic. EYES: Pupils equal round and reactive to light, extraocular movements intact, conjunctiva are normal. ENT: Nares patent, oropharynx clear without exudates. Moist mucous membranes. NECK: Normal range of motion, supple without lymphadenopathy LUNGS: Breath sounds clear to auscultation bilaterally and equal. No wheezes rales or rhonchi. HEART: Regular rate and rhythm without murmurs ABDOMEN: soft tender nondistended abdomen. No guarding, no rebound. No masses appreciated. Female : Tenderness to palpation white vaginal discharge bilateral cervical tenderness Musculoskeletal: Normal range of motion, no pitting or edema. No cyanosis. NEUROLOGICAL: Cranial nerves grossly intact. Normal speech, normal gait. Normal sensory, motor exams PSYCH: Normal mood, normal affect. SKIN: Warm, Dry, normal turgor, no rashes or lesions noted. PSYCHIATRIC: Denies anxiety or stress. Denies depression, suicidal ideation, or homicidal ideation. ALL OTHER SYSTEMS REVIEWED AND NEGATIVE. Dictation was performed using [employer] voice recognition software Physical Exam - Vital signs Vitals: Temp Pulse Resp BP Pulse Ox 97.7 F 78 16 113/74 99 05/11/18 13:44 05/11/18 13:44 05/11/18 13:44 05/11/18 13:44 05/11/18 13:44 Course - Vital Signs Vital signs: Temp Pulse Resp BP Pulse Ox 97.7 F 78 16 113/74 99 05/11/18 13:44 05/11/18 13:44 05/11/18 13:44 05/11/18 13:44 05/11/18 13:44 - Laboratory Result Diagrams: 05/11/18 14:08 05/11/18 14:08 Laboratory results interpreted by me: 05/11/18 14:08 Potassium 5.4 H Creatinine 0.49 L - Diagnostic Test Radiology reviewed: Image reviewed, Reports reviewed Discharge - Discharge Clinical Impression: Pelvic pain Condition: Stable Disposition: HOME, SELF-CARE Additional Instructions: PELVIC PAIN: There are many causes of pain in the pelvic area. The cause could be the tubes, ovaries, uterus, intestines, appendix, pelvic muscles and connective tissue, or the urinary tract. The cause of your pelvic pain is not clear. However, it seems safe to treat you outside the hospital. If the pain sounds like a temporary problem, we sometimes wait to see if it goes away. Other patients may need additional tests, such as pelvic ultrasound or cultures. Conditions may change. Call us or come back for reexamination if any problems occur, such as: (1) Pain that becomes more severe, steady, or becomes concentrated in one specific area. Also, pain that is more severe with movement or coughing. (2) Vomiting that persists or becomes more frequent. (3) Blood in the vomitus, urine, or bowel movements. Blood in the stool may have a tarry or black appearance. (4) Shaking chills or fever greater than 100 degrees. (5) The abdomen becomes more distended or swollen. (6) Bowel movements cease. (7) Heavy vaginal bleeding. TORADOL INJECTION: You have been given an injection of ketorolac tromethamine (Toradol). This is an excellent, safe drug for pain control. It also has potent antiinflammatory action. You should have significant pain relief within about one hour. Toradol is not addicting and is non-sedating. It does not interfere with driving or work. Call or return if you develop itching, hives, shortness of breath, or rash. CEPHALOSPORINS: An antibiotic of the cephalosporin class has been prescribed. This type of antibiotic covers a wide variety of infections, including those of the skin, lungs, middle ear, and urinary tract. This antibiotic is somewhat similar to the penicillin family. In rare cases , a person who is allergic to penicillin will also be allergic to this medication. If you have had a severe allergic reaction to penicillin, and have not taken this antibiotic since that time, notify your doctor. Antibiotics which cover many germs ("broad spectrum" antibiotics) are more likely to cause diarrhea or "yeast" infections. Women prone to vaginal yeast problems may suffer an attack after taking this antibiotic. In infants, oral thrush (white spots "stuck" on the cheek) or yeast diaper rash may result. See your doctor if these problems occur. Call the doctor at once if you develop hives, itching, shortness of breath , or lightheadedness. FOLLOW-UP CARE: If you have been referred to a physician for follow-up care, call the physician s office for an appointment as you were instructed or within the next two days. If you experience worsening or a significant change in your symptoms, notify the physician immediately or return to the Emergency Department at any time for re-evaluation. Referrals: BITA FRANCIS DO [Primary Care Provider] - Follow up as needed [facility] [Provider Group] - Follow up as needed
[2018-05-11 17:05] LABS: BACTERIA (WET MOUNT) 3+ BACTERIA SEEN; EPITHELIALS (WET MOUNT) 3+ EPITHELIALS SEEN; RBCS (WET MOUNT) RARE RBCS SEEN; T.VAGINALIS (WET MOUNT) NO TRICHOMONAS SEEN; WBCS (WET MOUNT) 1+ WBCS SEEN; YEAST (WET MOUNT) NO YEAST SEEN
[2018-05-11] MEDS ORDERED: KETOROLAC TROMETHAMINE INJ/PF 30 MG/1 ML SDV IM ONE (17:12)
[2018-05-11] MEDS ORDERED: CEFTRIAXONE INJ 250 MG VIAL IM ONE (17:12)
[2018-05-11] MEDS ORDERED: LIDOCAINE 1% INJ-PF (10 MG/ML) 30 ML SDV INJ ONE (17:12)
[2018-05-11 18:35] LABS: CHLAM PCR NOT DETECTED (NOT DETECT); GON PCR NOT DETECTED (NOT DETECT)
== END 2018-05-11 18:25 | disposition home or self-care (01) ==
LOC: ER 13:24
DX: R10.2 Pelvic and perineal pain (principal); N89.8 Other specified noninflammatory disorders of vagina; Z87.442 Personal history of urinary calculi; Z87.42 Personal history of other diseases of the female genital tract; Z87.19 Personal history of other diseases of the digestive system; Z98.51 Tubal ligation status; Z88.0 Allergy status to penicillin; Z88.1 Allergy status to other antibiotic agents; Z88.5 Allergy status to narcotic agent; Z91.018 Allergy to other foods; Z88.8 Allergy status to other drugs, medicaments and biological substances; Z88.3 Allergy status to other anti-infective agents; Z88.2 Allergy status to sulfonamides
CPT/HCPCS: 99284; 96372; 36415; 87210; 85025; 81025; 80053; 81001; 87491; 87591; 76830; 93976; J3490; J1885; J0696

== ENCOUNTER 2019-01-15 23:36 | Emergency (ER) | payer SELFPAY ==
[2019-01-16] MEDS ORDERED: NORMAL SALINE 1000 ML 1,000 ML IV ONE ×2 (01:00→02:16)
--- NOTE | 2019-01-16 01:03 | ER Document Report ---
Addendum entered and electronically signed by SILVERIO GOLDEN NP 01/16/19 02:24: Course - Re-evaluation Re-evalutation: 01/16/19 02:23 Provider was called to room after patient had a syncopal episode. RN states that patient started feeling lightheaded during her IV insertion. Suspect possibility of possible vasovagal episode especially as patient's initial heart rate was in the 40s and then started to trend upward into the 70s. Patient did present with left upper quadrant pain with a recent mono exposure, will obtain CT abdomen pelvis to further evaluate. scholastic aptitude test grader advised the patient status. Patient is getting EKG and then will be moved directly to bed 16. Report and handoff given to Gladys herrera NP - Vital Signs Vital signs: Temp Pulse Resp BP Pulse Ox 98.2 F 82 18 126/85 H 97 01/15/19 23:55 01/15/19 23:55 01/15/19 23:55 01/15/19 23:55 01/15/19 23:55 Original Note: ED Medical Screen (RME) - General Chief Complaint: Fever Stated Complaint: FEVER Time Seen by Provider: 01/16/19 00:58 Primary Care Provider: BITA FRANCIS DO [Primary Care Provider] - Follow up as needed Information source: Patient Notes: Patient presents complaining of sore throat fever for the past 5 days. Patient reports feeling lightheaded. Patient states that she ate food this evening and then developed abdominal pain after eating. Patient reports recent mono exposure at home. I have greeted and performed a rapid initial assessment of this patient. A comprehensive ED assessment and evaluation of the patient, analysis of test results and completion of the medical decision making process will be conducted by additional ED providers. TRAVEL OUTSIDE OF THE [place] IN LAST 30 DAYS: No - Related Data Allergies/Adverse Reactions: amoxicillin [Amoxicillin] Allergy (Verified 05/11/18 13:36) GI upset azithromycin [From Zithromax] Allergy (Verified 05/11/18 13:36) Hives cefaclor [From Ceclor] Allergy (Verified 05/11/18 13:36) cefprozil [From Cefzil] Allergy (Verified 05/11/18 13:36) codeine [Codeine] Allergy (Verified 05/11/18 13:36) GI upset corn [[place]] Allergy (Verified 05/11/18 13:36) gi upset/hives dextrose [Dextrose] Allergy (Verified 05/11/18 13:36) nausea,skin rash erythromycin base [Erythromycin Base] Allergy (Verified 05/11/18 13:36) hives,gi upset metoclopramide HCl [From Reglan] Allergy (Verified 05/11/18 13:36) "Skin crawls" polysorbate 80 [Polysorbate 80] Allergy (Verified 05/11/18 13:36) povidone-iodine [From Betadine] Allergy (Verified 05/11/18 13:36) chemical rash Soap [From Betadine] Allergy (Verified 05/11/18 13:36) chemical rash sorbitol [Sorbitol] Allergy (Verified 05/11/18 13:36) soy [Soy] Allergy (Verified 05/11/18 13:36) GI upset,rash Sulfa (Sulfonamide Antibiotics) Allergy (Verified 05/11/18 13:36) GI upset amoxicillin trihydrate [From Augmentin] Adverse Reaction (Severe, Verified 05/11/18 13:36) GI upset Potassium Clavulanate * [From Augmentin] Adverse Reaction (Severe, Verified 05/18 13:36) GI upset propofol [Propofol] Adverse Reaction (Severe, Verified 05/11/18 13:36) "EXTREME DIFFICULTY WAKING UP" succinylcholine [Succinylcholine] Adverse Reaction (Unknown, Verified 05/11/18 13:36) "STATES MOTHER HAD A BAD REACTION" TOLD NOT TO TAKE droperidol [From Inapsine] Adverse Reaction (Verified 05/11/18 13:36) Psychosis tygan Allergy (Uncoded 05/11/18 13:36) Past Medical History - Past Medical History Cardiac Medical History: Denies: Hx Congestive Heart Failure, Hx DVT, Hx Heart Attack, Hx Hyperchol esterolemia, Hx Hypertension, Hx Pulmonary Embolism Pulmonary Medical History: Reports: Hx Bronchitis, Hx Pneumonia Denies: Hx Asthma, Hx COPD Neurological Medical History: 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 Denies: Hx Peritoneal Dialysis GI Medical History: Reports: Hx Irritable Bowel, Hx Colonoscopy, Hx Endoscopy. Denies: Hx Cirrhosis, Hx Gastroesophageal Reflux Disease Musculoskeltal Medical History: Reports Hx Arthritis, Reports Hx Musculoskeletal Deformity, Reports Hx Musculoskeletal Trauma Psychiatric Medical History: Reports: Hx Anxiety Denies: Hx Depression Traumatic Medical History: Reports: Hx Fractures Infectious Medical History: Denies: Hx C-Diff Past Surgical History: Reports: Hx Abdominal Surgery - laproscopy, Hx Section - x 3, Hx Nose Surgery, Hx Orthopedic Surgery - rt shoulder bicep repair, Hx Tonsillectomy, Hx Tubal Ligation. Denies: Hx Hysterectomy - Immunizations Immunizations up to date: Yes Hx Diphtheria, Pertussis, Tetanus Vaccination: Yes - 12/08/16 History of Influenza Vaccine for 03/2017 - 08/2017 Season: Refused Physical Exam - Vital signs Vitals: Temp Pulse Resp BP Pulse Ox 98.2 F 82 18 126/85 H 97 01/15/19 23:55 01/15/19 23:55 01/15/19 23:55 01/15/19 23:55 01/15/19 23:55 - HEENT Mouth/Lips: Normal. No: Angioedema Pharynx: Erythema. No: Retropharyngeal abscess, Tonsillar hypertrophy, Potential airway comprom. - Abdominal Tenderness: Tender - epigastric, left upper quadrant Course - Vital Signs Vital signs: Temp Pulse Resp BP Pulse Ox 98.2 F 82 18 126/85 H 97 01/15/19 23:55 01/15/19 23:55 01/15/19 23:55 01/15/19 23:55 01/15/19 23:55 Doctor's Discharge - Discharge Referrals: BITA FRANCIS DO [Primary Care Provider] - Follow up as needed
[2019-01-16 02:14] LABS: APPEARANCE,URINE CLEAR; BILIRUBIN,URINE NEGATIVE (NEGATIVE); COLOR,URINE YELLOW; GLUCOSE, URINE NEGATIVE (NEGATIVE); KETONES,URINE NEGATIVE (NEGATIVE); LEUKOCYTE ESTERASE,URINE NEGATIVE (NEGATIVE); NITRITE,URINE NEGATIVE (NEGATIVE); PROTEIN,URINE NEGATIVE (NEGATIVE); URINE SPECIFIC GRAVITY 1.026; UROBILINOGEN,URINE NEGATIVE mg/dL (<2.0)
[2019-01-16 02:37] LABS: ABSOLUTE EOSINOPHILS # (AUTO) 0.5 10^3/uL (0.0-0.6); ABSOLUTE LYMPHOCYTES (AUTO) 3.1 10^3/uL (0.5-4.7); ABSOLUTE MONOCYTES (AUTO) 0.5 10^3/uL (0.1-1.4); ABSOLUTE NEUT (AUTO) 5.6 10^3/uL (1.7-8.2); BASOPHILS % (AUTO) 0.5 % (0-2); EOSINOPHILS % (AUTO) 4.7 % (0-6); HEMATOCRIT 43.2 % (36.0-47.0); HEMOGLOBIN 15.2 g/dL (12.0-15.5); LYMPHOCYTES % (AUTO) 31.8 % (13-45); MEAN CORPUSCULAR HEMOGLOBIN 29.1 pg (27.0-33.4); MEAN CORPUSCULAR HGB CONC 35.1 g/dL (32.0-36.0); MEAN CORPUSCULAR VOLUME 83 fl (80-97); MONOCYTES % (AUTO) 5.2 % (3-13); PLATELET COUNT 220 10^3/uL (150-450); RED BLOOD COUNT 5.21 10^6/uL (3.72-5.28); SEGMENTED NEUTROPHILS % (AUTO) 57.8 % (42-78); TOTAL CELLS COUNTED % (AUTO) 100 %; WHITE BLOOD COUNT 9.8 10^3/uL (4.0-10.5)
[2019-01-16 02:56] LABS: ALANINE AMINOTRANSFERASE 30 U/L (9-52); ALBUMIN 4.6 g/dL (3.5-5.0); ALKALINE PHOSPHATASE 66 U/L (38-126); ANION GAP 8 (5-19); ASPARTATE AMINO TRANSFERASE 34 U/L (14-36); BILIRUBIN,DIRECT 0.2 mg/dL (0.0-0.4); BILIRUBIN,TOTAL 0.5 mg/dL (0.2-1.3); BLOOD UREA NITROGEN 24 mg/dL (7-20); CALCIUM 9.4 mg/dL (8.4-10.2); CARBON DIOXIDE 25 mmol/L (22-30); CHLORIDE 106 mmol/L (98-107); GLUCOSE 91 mg/dL (75-110); LIPASE 141.5 U/L (23-300); POTASSIUM 4.1 mmol/L (3.6-5.0); SODIUM 138.6 mmol/L (137-145); TOTAL PROTEIN 7.3 g/dL (6.3-8.2)
[2019-01-16] MEDS ORDERED: ACETAMINOPHEN 325 MG TABLET PO ONE (03:56)
--- NOTE | 2019-01-16 04:40 | RADIOLOGY REPORT (SQ) ---
EXAM DESCRIPTION: CT ABDOMEN PELVIS WITH IV CONTRAST COMPLETED DATE/TME: 01/16/2019 02:16 CLINICAL HISTORY: 33 years, Female, LUQ pain, mono exposure, eval spleen COMPARISON: 07/25/2017 TECHNIQUE: Axial CT images of the abdomen and pelvis were obtained after the injection of IV contrast. Sagittal and coronal reformats were performed. DLP 524. Images stored on PACS. All CT scanners at this facility use dose modulation, iterative reconstruction, and/or weight based dosing when appropriate to reduce radiation dose to as low as reasonably achievable (ALARA). [facility]: Dose Right [facility]: CareDose [facility]: Dose Right [facility]: Teradose 4D [facility]: [employer] LIMITATIONS: None. FINDINGS: The lung bases are clear. The liver, gallbladder, pancreas, and adrenal glands appear normal. The spleen is at the upper limit of normal in size measuring up to 12.3 cm in cc dimension. The spleen otherwise appears unremarkable. Both kidneys appear normal. No evidence of hydronephrosis bilaterally. There is no intraperitoneal free air or fluid. There is no lymphadenopathy. The abdominal aorta is normal in caliber. The stomach and small bowel are unremarkable. Appendectomy. The colon appears unremarkable. Uterus, adnexa, and urinary bladder are unremarkable. There are no lytic or blastic bone lesions. IMPRESSION: The spleen is at the upper limit of normal in size measuring 12.3 cm. Otherwise the spleen appears unremarkable. No acute findings in the abdomen or pelvis. TECHNICAL DOCUMENTATION: Quality ID # [id number]: Final reports with documentation of one or more dose reduction techniques (e.g., Automated exposure control, adjustment of the mA and/or kV according to patient size, use of iterative reconstruction technique) copyright 2011 [employer]- All Rights Reserved
--- NOTE | 2019-01-16 05:29 | ER Document Report ---
ED General - General Chief Complaint: Fever Stated Complaint: FEVER Time Seen by Provider: 01/16/19 00:58 Primary Care Provider: BITA FRANCIS DO [NO LOCAL MD] - Follow up in 1 week Notes: Patient is a 33-year-old female who presents to the emergency department with a chief complaint of a sore throat, fever, and abdominal pain. States she has had her symptoms for the past couple days, but now that she has abdominal pain she wanted to make sure that she was okay. She states that she feels weak. She states that her pain is in her left lateral area. Her daughter was diagnosed with mononucleosis not that long ago, and the patient states that she feels like how her daughter felt when she was diagnosed. Patient has not seen her primary care provider in regards to this issue. When the patient was in triage, she had a syncopal episode. She states that she was able to hear what everybody was saying, but was not able to talk back. Patient states that she does feel better after receiving some fluids and getting some rest. Patient denies any nausea, vomiting, diarrhea, or any other symptoms. TRAVEL OUTSIDE OF THE [place] IN LAST 30 DAYS: No - Related Data Allergies/Adverse Reactions: amoxicillin [Amoxicillin] Allergy (Verified 05/11/18 13:36) GI upset azithromycin [From Zithromax] Allergy (Verified 05/11/18 13:36) Hives cefaclor [From Ceclor] Allergy (Verified 05/11/18 13:36) cefprozil [From Cefzil] Allergy (Verified 05/11/18 13:36) codeine [Codeine] Allergy (Verified 05/11/18 13:36) GI upset corn [Creole] Allergy (Verified 05/11/18 13:36) gi upset/hives dextrose [Dextrose] Allergy (Verified 05/11/18 13:36) nausea,skin rash erythromycin base [Erythromycin Base] Allergy (Verified 05/11/18 13:36) hives,gi upset metoclopramide HCl [From Reglan] Allergy (Verified 05/11/18 13:36) "Skin crawls" polysorbate 80 [Polysorbate 80] Allergy (Verified 05/11/18 13:36) povidone-iodine [From Betadine] Allergy (Verified 05/11/18 13:36) chemical rash Soap [From Betadine] Allergy (Verified 05/11/18 13:36) chemical rash sorbitol [Sorbitol] Allergy (Verified 05/11/18 13:36) soy [Soy] Allergy (Verified 05/11/18 13:36) GI upset,rash Sulfa (Sulfonamide Antibiotics) Allergy (Verified 05/11/18 13:36) GI upset amoxicillin trihydrate [From Augmentin] Adverse Reaction (Severe, Verified 05/11/18 13:36) GI upset Potassium Clavulanate * [From Augmentin] Adverse Reaction (Severe, Verified 05/11/18 13:36) GI upset propofol [Propofol] Adverse Reaction (Severe, Verified 05/11/18 13:36) "EXTREME DIFFICULTY WAKING UP" succinylcholine [Succinylcholine] Adverse Reaction (Unknown, Verified 05/11/18 13:36) "STATES MOTHER HAD A BAD REACTION" TOLD NOT TO TAKE droperidol [From Inapsine] Adverse Reaction (Verified 05/11/18 13:36) Psychosis tygan Allergy (Uncoded 05/11/18 13:36) Past Medical History - General Information source: Patient - Social History Smoking Status: Never Smoker Frequency of alcohol use: None Drug Abuse: None Family History: CVA, DM, Hypertension, Malignancy, Thyroid Disfunction Patient has suicidal ideation: No Patient has homicidal ideation: No - Past Medical History Cardiac Medical History: Denies: Hx Congestive Heart Failure, Hx DVT, Hx Heart Attack, Hx Hypercholesterolemia, Hx Hypertension, Hx Pulmonary Embolism Pulmonary Medical History: Reports: Hx Bronchitis, Hx Pneumonia Denies: Hx Asthma, Hx COPD Neurological Medical History: 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 Denies: Hx Peritoneal Dialysis GI Medical History: Reports: Hx Irritable Bowel, Hx Colonoscopy, Hx Endoscopy. Denies: Hx Cirrhosis, Hx Gastroesophageal Reflux Disease Musculoskeletal Medical History: Reports Hx Arthritis, Reports Hx Musculoskeletal Deformity, Reports Hx Musculoskeletal Trauma Psychiatric Medical History: Reports: Hx Anxiety Denies: Hx Depression Traumatic Medical History: Reports: Hx Fractures Infectious Medical History: Denies: Hx C-Diff Past Surgical History: Reports: Hx Abdominal Surgery - laproscopy, Hx Section - x 3, Hx Nose Surgery, Hx Orthopedic Surgery - rt shoulder bicep repair, Hx Tonsillectomy, Hx Tubal Ligation. Denies: Hx Hysterectomy - Immunizations Immunizations up to date: Yes Hx Diphtheria, Pertussis, Tetanus Vaccination: Yes - 12/08/16 Review of Systems - Review of Systems Notes: REVIEW OF SYSTEMS: CONSTITUTIONAL : See HPI EENT: See HPI CARDIOVASCULAR: Denies chest pain. RESPIRATORY: Denies shortness of breath, cough, congestion, difficulty breathing, or wheezing. GASTROINTESTINAL: See HPI GENITOURINARY: Denies difficulty urinating, burning, blood in urine, urgency or frequency. MUSCULOSKELETAL: Denies neck and back pain. Denies joint pain or swelling. SKIN: Denies rash, itchiness, or lesions HEMATOLOGIC : Denies easy bruising or bleeding. LYMPHATIC: Denies swollen, painful, enlarged glands. NEUROLOGICAL: See HPI PSYCHIATRIC: Denies stress, anxiety, alteration in sleep patterns, or depression. All other systems reviewed and negative. Physical Exam - Vital signs Vitals: Temp Pulse Resp BP Pulse Ox 98.2 F 82 18 126/85 H 97 01/15/19 23:55 01/15/19 23:55 01/15/19 23:55 01/15/19 23:55 01/15/19 23:55 - Notes Notes: PHYSICAL EXAMINATION: GENERAL: Appears well, healthy, well-nourished, no acute distress. HEAD: Normocephalic, atraumatic. EYES: PERRL, conjunctiva normal, all extraocular movements intact, sclera nonicteric ENT: Moist mucous membranes. Erythematous oropharynx. NECK: Supple, no noticeable swelling, redness, rash. Normal range of motion. LUNGS: Equal breath sounds bilaterally and clear to auscultation. No wheezes rales or rhonchi. CARDIOVASCULAR: S1-S2, regular rate, regular rhythm. Radial pulses 2+, normal. ABDOMEN: Normoactive bowel sounds. Soft, mildly tender right lateral abdomen, no guarding, no rebound tenderness, and no masses palpated. EXTREMITIES: Normal strength and range of motion, no pitting or edema. No cyan osis. NEUROLOGICAL: Moves all extremities upon command. Strength 5/5 in all extremities. PSYCH: Normal mood, normal affect. SKIN: Warm, dry. No rash, lesions, ulcerations noted. Normal skin turgor. Course - Re-evaluation Re-evalutation: 01/16/19 Patient's CBC and chemistries are both unremarkable. As expected, the patient is positive for mononucleosis, as her daughter has it also. Her rapid strep test was negative. Patient's CT of the abdomen pelvis shows at the spleen is a little larger, but still within normal range at this time. I reviewed labs and CT results with the patient. Strict precautions were given to avoid contact sports, heavy lifting, or abdominal trauma. Patient is in agreement with this plan. I have educated her on the importance of staying well-hydrated and getting plenty of rest. She will follow-up with her primary care provider in regards to this visit. Follow-up precautions were given. Verbal discharge instructions were given to the patient. They verbalized understanding. They are stable for discharge. - Vital Signs Vital signs: Temp Pulse Resp BP Pulse Ox 98.2 F 82 14 119/83 94 01/15/19 23:55 01/15/19 23:55 01/16/19 05:01 01/16/19 05:00 01/16/19 05:01 - Laboratory Result Diagrams: 01/16/19 02:05 01/16/19 02:05 Laboratory results interpreted by me: 01/16/19 01/16/19 02:05 02:05 BUN 24 H Monotest POSITIVE H Discharge - Discharge Clinical Impression: Fever Qualifiers: Fever type: unspecified Qualified Code(s): R50.9 - Fever, unspecified Mononucleosis Qualifiers: Infectious mononucleosis etiology: unspecified organism Infectious mononucleosis complication: without complication Qualified Code(s): B27.90 - Infectious mononucleosis, unspecified without complication Abdominal pain Qualifiers: Abdominal location: unspecified location Qualified Code(s): R10.9 - Unspecified abdominal pain Condition: Stable Disposition: HOME, SELF-CARE Additional Instructions: You were seen today in the emergency department for abdominal pain and a fever. Based off your labs, you have mononucleosis. Mononucleosis is a virus and will go away on its own. Your other labs are normal. The CT showed that your spleen was normal size. Please make sure you stay well-hydrated and get plenty of rest. Please avoid contact sports, fighting, abdominal trauma, or abdominal straining. Referrals: BITA FRANCIS DO [NO LOCAL MD] - Follow up in 1 week
[2019-01-16 05:41] VITALS: BP 119/83
--- NOTE | 2019-01-16 08:37 | EKG REPORT ---
SEVERITY:- BORDERLINE ECG - SINUS ARRHYTHMIA, RATE 56-68 VENTRICULAR PREMATURE COMPLEX INTERPOLATED VENTRICULAR PREMATURE COMPLEX INFERIOR Q WAVES, PROBABLY NORMAL VARIATION : Confirmed by: Suman Milian MD 16-Jan-2019 08:36:57
== END 2019-01-16 05:41 | disposition home or self-care (01) ==
LOC: ER 23:36
DX: B27.90 Infectious mononucleosis, unspecified without complication (principal); R50.9 Fever, unspecified; R10.9 Unspecified abdominal pain; J02.9 Acute pharyngitis, unspecified; R53.1 Weakness
CPT/HCPCS: 93005; 99284; 96360; 96361; 36415; 87070; 87880; 83690; 84703; 85025; 86308; 80053; 81001; 74177; 93010; J7030

== ENCOUNTER 2019-05-31 03:28 | Emergency (ER) | payer SELFPAY ==
[2019-05-31 04:43] LABS: A TYPE INFLUENZA AG NEGATIVE (NEGATIVE); B INFLUENZA AG NEGATIVE (NEGATIVE)
[2019-05-31] MEDS ORDERED: ALBUTEROL SULFATE HFA (90 MCG/PUFF) 8 GM MDI (1 MDI/ER DISP) IH ONE (07:27)
[2019-05-31] MEDS ORDERED: OXYMETAZOLINE HCL 0.05% NASAL SPRAY 15 ML BOTTLE NASL ONE (07:28)
[2019-05-31] MEDS ORDERED: BENZONATATE 100 MG CAPSULE PO ONE (07:28)
--- NOTE | 2019-05-31 07:36 | ER Document Report ---
HPI - HPI Time Seen by Provider: 05/31/19 07:27 Pain Level: 5 Context: Healthy 34-year-old female presents to the emergency department with sinus pressure, flulike symptoms, muffled hearing, cough since . Patient was initially very upset but calm down after being able to express herself. Patient states that she has a headache, sinus pressure with drainage, cough that is nonproductive, subjective fevers, and pain with swallowing that is secondary to congestion. Denies ear pain, states his sinus pressure is frontal and maxillary, denies wheezing, denies chest pain, denies nausea/vomiting/diarrhea, denies urinary symptoms. - EENT EENT: REPORTS: Ear Pain - NEURO Neurology: REPORTS: Headache - RESPIRATORY Respiratory: REPORTS: Coughing - REPRODUCTIVE Reproductive: DENIES: : Past Medical History - Social History Smoking Status: Never Smoker Frequency of alcohol use: None Drug Abuse: None Family History: CVA, DM, Hypertension, Malignancy, Thyroid Disfunction Patient has suicidal ideation: No Patient has homicidal ideation: No - Past Medical History Cardiac Medical History: Denies: Hx Congestive Heart Failure, Hx DVT, Hx Heart Attack, Hx Hypercholesterolemia, Hx Hypertension, Hx Pulmonary Embolism Pulmonary Medical History: Reports: Hx Bronchitis, Hx Pneumonia Denies: Hx Asthma, Hx COPD Neurological Medical History: 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 Denies: Hx Peritoneal Dialysis GI Medical History: Reports: Hx Irritable Bowel, Hx Colonoscopy, Hx Endoscopy. Denies: Hx Cirrhosis, Hx Gastroesophageal Reflux Disease Musculoskeletal Medical History: Reports Hx Arthritis, Reports Hx Musculoskeletal Deformity, Reports Hx Musculoskeletal Trauma Psychiatric Medical History: Reports: Hx Anxiety Denies: Hx Depression Traumatic Medical History: Reports: Hx Fractures Infectious Medical History: Denies: Hx C-Diff Past Surgical History: Reports: Hx Abdominal Surgery - laproscopy, Hx Section - x 3, Hx Nose Surgery, Hx Orthopedic Surgery - rt shoulder bicep repair, Hx Tonsillectomy, Hx Tubal Ligation. Denies: Hx Hysterectomy - Immunizations Immunizations up to date: Yes Hx Diphtheria, Pertussis, Tetanus Vaccination: Yes - 12/08/16 Vertical Provider Document - CONSTITUTIONAL Notes: PHYSICAL EXAMINATION: Reviewed vital signs and charting by RN GENERAL: Alert, interacts well. No acute distress. HEAD: Normocephalic, atraumatic. EYES: Pupils equal and round. Extraocular movements intact. ENT: Oral mucosa moist, tongue midline. Right middle ear effusion, bilateral TMs visualized, no erythema, no bulging, landmarks well visualized NECK: Full range of motion. Trachea midline. Cervical lymphadenopathy bilateral LUNGS: Clear to auscultation bilaterally, no wheezes, rales, or rhonchi. No respiratory distress. HEART: Mild tachycardia rate 102. No murmur ABDOMEN: soft, non-tender. No distention. Bowel sounds present EXTREMITIES: Moves all 4 extremities spontaneously. No edema, No cyanosis. PSYCH: Normal affect, normal mood. SKIN: Warm, dry, normal turgor. No rashes or lesions noted. - INFECTION CONTROL TRAVEL OUTSIDE OF THE [place] IN LAST 30 DAYS: No Course - Re-evaluation Re-evalutation: 05/31/19 07:49 Well-appearing in no acute distress, nontoxic, rapid influenza testing negative. Lungs clear in all yeung but patient has a nonproductive cough. She does have a history of exercise-induced asthma so I am going to give her an albuterol inhaler with a spacer to take home. Also, her sinus pressure and drainage has only been present for 3 days so there is no indication for antibiotics at this time. Recommendation was to use Afrin for 3 days and for her to continue Flonase. I have given her Tessalon Perle with a prescription to use if she finds benefit from it. All of her symptoms are consistent with a viral upper respiratory infection. I explained all this to patient and she did calm down and was very pleasant, she understands the plan, agrees with the plan, and is ready for discharge. - Vital Signs Vital signs: Temp Pulse Resp BP Pulse Ox 98.4 F 100 20 135/95 H 97 05/31/19 03:33 05/31/19 03:33 05/31/19 03:33 05/31/19 03:33 05/31/19 03:33 Discharge - Discharge Clinical Impression: Cough Upper respiratory infection Qualifiers: URI type: acute nasopharyngitis (common cold) Qualified Code(s): J00 - Acute nasopharyngitis [common cold] Sinus infection Qualifiers: Sinusitis location: frontal Chronicity: acute Recurrence: non-recurrent Qualified Code(s): J01.10 - Acute frontal sinusitis, unspecified Acute middle ear effusion Qualifiers: Laterality: left Qualified Code(s): H65.192 - Other acute nonsuppurative otitis media, left ear Condition: Good Disposition: HOME, SELF-CARE Additional Instructions: You were seen in the emergency department this morning for cough, sinus congestion, flulike symptoms. Your rapid influenza testing was negative. You did have some fluid behind your right ear which explains why you are having muffled hearing. This is all secondary to the sinus congestion and nasal congestion. Please use Afrin 1 spray in each nostril every 12 hours for ONLY 3 days. Also, please continue to use the Flonase either 1 spray in each nostril 2 times per day or 2 sprays in each nostril once per day. You have been given an inhaler that you can use as needed if you are having a nonproductive cough. Also, if you feel that the Tessalon Perle you received here in the emergency department was effective you can fill the prescription that was given to you. Please return to the emergency department if you have persistent fevers that do not respond to Tylenol or Motrin, you develop severe acute shortness of breath, you have worsening ear pain, you have persistent sinus pressure and discharge that lasts greater than 10 days, or you have any other symptoms that are concerning to you. Again, I apologize for your long wait in the emergency room this morning.
[2019-05-31 07:56] VITALS: BP 129/86
== END 2019-05-31 08:56 | disposition home or self-care (01) ==
LOC: ER 03:28
DX: J00 Acute nasopharyngitis [common cold] (principal); J01.00 Acute maxillary sinusitis, unspecified; H65.192 Other acute nonsuppurative otitis media, left ear; R05 Cough; R51 Headache; R00.0 Tachycardia, unspecified; Z87.01 Personal history of pneumonia (recurrent)
CPT/HCPCS: 99283; 87804; J3490 ×2

== ENCOUNTER → 2019-07-22 | Outpatient (CLI) | payer OTHER ==
--- NOTE | 2019-07-22 16:50 | RADIOLOGY REPORT (SQ) ---
EXAM DESCRIPTION: CT ABD/PELVIS NO ORAL OR IV COMPLETED DATE/TIME: 07/22/2019 4:21 pm REASON FOR STUDY: R10.9 UNSPECIFIED ABDOMINAL PAIN, Z87.442 PERSONAL HISTORY OF URINARY CALCU R10.9 UNSPECIFIED ABDOMINAL PAIN Z87.442 PERSONAL HISTORY OF URINARY CALCULI COMPARISON: None. TECHNIQUE: CT scan of the abdomen and pelvis performed without intravenous or oral contrast. Images reviewed with lung, soft tissue, and bone windows. Reconstructed coronal and sagittal MPR images revi ewed. All images stored on PACS. All CT scanners at this facility use dose modulation, iterative reconstruction, and/or weight based d osing when appropriate to reduce radiation dose to as low as reasonably achievable (ALARA). [facility]: Dose Right [facility]: CareDose [facility]: Dose Right [facility]: Teradose 4D [facility]: Smart Stockpile RADIATION DOSE: CT Rad equipment meets quality standard of care and radiation dose reduction techniq ues were employed. CTDIvol: 5.1 mGy. DLP: 272 mGy-cm.mGy. LIMITATIONS: None. FINDINGS: LOWER CHEST: No significant findings. No nodules or infiltrates. NON-CONTRASTED LIVER, SPLEEN, ADRENALS: Evaluation limited by lack of IV contrast. No identified sign ificant masses. PANCREAS: No masses. No peripancreatic inflammatory changes. GALLBLADDER: No identified stones by CT criteria. No inflammatory changes to suggest cholecystitis. RIGHT KIDNEY AND URETER: No suspicious masses. Assessment limited by lack of IV contrast. Single 1 to 2 mm nonobstructing stone in the mid to lower pole. No hydronephrosis or hydroureter. LEFT KIDNEY AND URETER: No suspicious masses. Assessment limited by lack of IV contrast. No signifi cant calcifications. No hydronephrosis or hydroureter. AORTA AND RETROPERITONEUM: No aneurysm. No retroperitoneal masses or adenopathy. BOWEL AND PERITONEAL CAVITY: No obvious masses or inflammatory changes. No free fluid. APPENDIX: Surgically absent. PELVIS, BLADDER, AND ABDOMINAL WALL:Bilateral adnexal lesions consistent with ovarian cysts. BONES: No significant findings. OTHER: No other significant finding. IMPRESSION: 1. Small nonobstructing right renal calculi 1 to 2 mm in greatest diameter. 2. Small ovarian cysts. Largest is on the right and measures 4.4 cm. No follow-up is necessary if the patient is asymptomatic. COMMENT: Followup of asymptomatic adnexal cysts found on CT or MRI in reproductive age patients *Benign cyst ?5 cm: No followup needed *Benign cyst >5 cm: US at 6-12 weeks to assess resolution *Probably benign cyst ?3 cm: No followup needed *Probably benign cyst >3 and ?5 cm: US at 6-12 weeks to assess resolution *Probably benign cyst >5 cm: US *Other imaging features, probable diagnostic: manage as appropriate for diagnosis *Other imaging features, not specific: US Note: If cyst is clinically symptomatic or otherwise concerning, other followup may be necessary. Bas ed on Managing Incidental Findings on Abdominal and Pelvic CT and MRI, Part 1: White Paper of the ACR Incidental Findings Committee II on Adnexal Findings J Am Selin Radiol 2013;10:675-681. Quality ID # 436: Final reports with documentation of one or more dose reduction techniques (e.g., Au tomated exposure control, adjustment of the mA and/or kV according to patient size, use of iterative reconstruction technique) TECHNICAL DOCUMENTATION: JOB ID: [id number] [employer]- All Rights Reserved Reading location - IP/workstation name: [email or web address]
== END ==
LOC: RAD 16:11
PROVIDERS: ATTEND Nurse Practitioner Acute Care
DX: R10.9 Unspecified abdominal pain (principal); Z87.442 Personal history of urinary calculi
CPT/HCPCS: 74176

== ENCOUNTER → 2020-02-25 | Outpatient (CLI) | payer OTHER ==
--- NOTE | 2020-02-25 12:26 | RADIOLOGY REPORT (SQ) ---
EXAM DESCRIPTION: FOOT RIGHT COMPLETE IMAGES COMPLETED DATE/TIME: 02/25/2020 11:10 am REASON FOR STUDY: RT FOOT PAIN M79.671 PAIN IN RIGHT FOOT COMPARISON: None. NUMBER OF VIEWS: Three views. TECHNIQUE: AP, lateral and oblique radiographic images acquired of the right foot. LIMITATIONS: None. FINDINGS: MINERALIZATION: Normal. BONES: No acute fracture or dislocation. No worrisome bone lesions. JOINTS: No effusions. SOFT TISSUES: No soft tissue swelling. No foreign body. OTHER: No other significant finding. IMPRESSION: NEGATIVE STUDY OF THE RIGHT FOOT. NO RADIOGRAPHIC EVIDENCE OF ACUTE INJURY. TECHNICAL DOCUMENTATION: JOB ID: [id number] 2010 [employer]- All Rights Reserved Reading location - IP/workstation name: [email or web address]
== END ==
LOC: OD 10:47
PROVIDERS: ATTEND Nurse Practitioner Family
DX: M79.671 Pain in right foot (principal)

== ENCOUNTER 2020-07-09 12:14 | Emergency (ER) | payer OTHER ==
--- NOTE | 2020-07-09 13:11 | ER Document Report ---
ED General - General Chief Complaint: Shortness Of Breath Stated Complaint: SHORTNESS OF BREATH Time Seen by Provider: 07/09/20 13:10 Primary Care Provider: TALAT TAVAREZ FNP [Primary Care Provider] - Follow up as needed TRAVEL OUTSIDE OF THE [place] IN LAST 30 DAYS: No - HPI Notes: 35-year-old female presents to the emergency room today for evaluation of left- sided chest pain and shortness of breath that has become progressively worse since starting the Levaquin and rescue inhaler 3 days ago. Patient states that she was diagnosed with Covid at the beginning of May 2020, was cleared on May 15. She states since that time she has had a low-grade shortness of breath. Reports on 06/25/2020, she had left-sided chest pain that was constant pressure. Patient reports she tried Sudafed on 06/29/2020 which did relieve most of her chest pressure and ear pressure. The beginning of this week she states she was feeling worse, she called her PCP on 07/06/2019 and they put her on Levaquin and albuterol with a telehealth visit. Patient's had 3 doses thus far. Denies any history of asthma, PEs, DVTs, clotting disorders, recent surgeries in the last 6 months, treatment for cancer, , LMP 06/14/2020. Non-smoker. Does not take any medications other than the ones that were recently prescribed to her. Patient states that when she started taking the Levaquin and her symptoms became worse. Patient states she does have a corn allergy and a dextrose allergy. States that Levaquin has never bothered her with the fillers. Non-smoker. Denies fevers, chills, palpitations, , dyspnea, nausea, vomiting, diarrhea, abdominal pain, hematuria,blurred vision, double vision, loss of vision, speech changes, LH, dizziness, syncope, headaches, wheezing, ST, URI, neck pain, weakness, bowel or bladder dysfunction, saddle anesthesia, numbness or tingling in bilateral upper or lower extremities equally, muscle paralysis, weakness in bilateral upper or lower extremities equally or rash. Denies IV drug use. - Related Data Allergies/Adverse Reactions: amoxicillin [Amoxicillin] Allergy (Verified 07/09/20 13:22) GI upset azithromycin [From Zithromax] Allergy (Verified 07/09/20 13:22) Hives cefaclor [From Ceclor] Allergy (Verified 07/09/20 13:) cefprozil [From Cefzil] Allergy (Verified 07/09/20 13:) codeine [Codeine] Allergy (Verified 07/09/20 13:) GI upset corn [[place]] Allergy (Verified 07/09/20 13:) gi upset/hives dextrose [Dextrose] Allergy (Verified 07/09/20 13:) nausea,skin rash erythromycin base [Erythromycin Base] Allergy (Verified 07/09/20 13:) hives,gi upset metoclopramide HCl [From Reglan] Allergy (Verified 07/09/20 13:) "Skin crawls" polysorbate 80 [Polysorbate 80] Allergy (Verified 07/09/20:) povidone-iodine [From Betadine] Allergy (Verified 07/09/20:) chemical rash Soap [From Betadine] Allergy (Verified 07/09/20 13:) chemical rash sorbitol [Sorbitol] Allergy (Verified 07/09/20 13:) soy [Soy] Allergy (Verified 07/09/20 13:) GI upset,rash Sulfa (Sulfonamide Antibiotics) Allergy (Verified 07/09/20 13:) GI upset amoxicillin trihydrate [From Augmentin] Adverse Reaction (Severe, Verified 07/09/20 13:) GI upset Potassium Clavulanate * [From Augmentin] Adverse Reaction (Severe, Verified 07/09/20 13:) GI upset propofol [Propofol] Adverse Reaction (Severe, Verified 07/09/20:) "EXTREME DIFFICULTY WAKING UP" succinylcholine [Succinylcholine] Adverse Reaction (Unknown, Verified 07/09/20 13:) "STATES MOTHER HAD A BAD REACTION" TOLD NOT TO TAKE droperidol [From Inapsine] Adverse Reaction (Verified 07/09/20:) Psychosis tygan Allergy (Uncoded 07/09/20:) Past Medical History - General Information source: Patient - Social History Smoking Status: Never Smoker Family History: CVA, DM, Hypertension, Malignancy, Thyroid Disfunction - Past Medical History Cardiac Medical History: Denies: Hx Congestive Heart Failure, Hx DVT, Hx Heart Attack, Hx Hypercholesterolemia, Hx Hypertension, Hx Pulmonary Embolism Pulmonary Medical History: Reports: Hx Bronchitis, Hx Pneumonia Denies: Hx Asthma, Hx COPD Neurological Medical History: 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 Denies: Hx Peritoneal Dialysis GI Medical History: Reports: Hx Irritable Bowel, Hx Colonoscopy, Hx Endoscopy. Denies: Hx Cirrhosis, Hx Gastroesophageal Reflux Disease Musculoskeletal Medical History: Reports Hx Arthritis, Reports Hx M usculoskeletal Deformity, Reports Hx Musculoskeletal Trauma Psychiatric Medical History: Reports: Hx Anxiety Denies: Hx Depression Traumatic Medical History: Reports: Hx Fractures Infectious Medical History: Denies: Hx C-Diff Past Surgical History: Reports: Hx Abdominal Surgery - laproscopy, Hx Section - x 3, Hx Nose Surgery, Hx Orthopedic Surgery - rt shoulder bicep repair, Hx Tonsillectomy, Hx Tubal Ligation. Denies: Hx Hysterectomy - Immunizations Immunizations up to date: Yes Hx Diphtheria, Pertussis, Tetanus Vaccination: Yes - 12/08/16 Review of Systems - Review of Systems Constitutional: No symptoms reported EENT: No symptoms reported Cardiovascular: See HPI Respiratory: See HPI Gastrointestinal: No symptoms reported Genitourinary: No symptoms reported Female Genitourinary: No symptoms reported Musculoskeletal: No symptoms reported Skin: No symptoms reported Hematologic/Lymphatic: No symptoms reported Neurological/Psychological: No symptoms reported Physical Exam - Vital signs Vitals: Temp Pulse Resp BP Pulse Ox 98.3 F 78 20 120/80 98 07/09/20 12:29 07/09/20 12:29 07/09/20 12:29 07/09/20 12:29 07/09/20 12:29 - Notes Notes: MEDICATIONS: I agree with the patient medications as charted by the RN. ALLERGIES: I agree with the allergies as charted by the RN. PAST MEDICAL HISTORY/PAST SURGICAL HISTORY: Reviewed and agree as charted by RN. SOCIAL HISTORY: Reviewed and agree as charted by RN. FAMILY HISTORY: No significant familial comorbid conditions directly related to patient complaint EXAM: Reviewed vital signs as charted by RN. PHYSICAL EXAMINATION: reviewed vital signs by RN GENERAL: Well-appearing, well-nourished and in no acute distress. HEAD: Atraumatic, normocephalic. EYES: Pupils equal round and reactive to light, extraocular movements intact, conjunctiva are normal. ENT: Nares patent, oropharynx clear without exudates. Moist mucous membranes. NECK: Normal range of motion, supple without lymphadenopathy LUNGS: Breath sounds clear to auscultation bilaterally and equal. No wheezes rales or rhonchi. HEART: Regular rate and rhythm without murmurs ABDOMEN: Soft, nontender, nondistended abdomen. No guarding, no rebound. No masses appreciated. Female : deferred Musculoskeletal: Normal range of motion, no pitting or edema. No cyanosis. NEUROLOGICAL: Cranial nerves grossly intact. Normal speech, normal gait. Normal sensory, motor exams PSYCH: Normal mood, normal affect. SKIN: Warm, Dry, normal turgor, no rashes or lesions noted. Else per 3 and it was because oral or something like that Course - Re-evaluation Re-evalutation: 07/09/20 13:30 Afebrile vital stable no distress. Nurses notes reviewed. Vitals are stable. Patient states that she has become more short of breath, feels that it is very hard to take a deep breath as well as her concurrent chest pain. CBC negative for leukocytosis or anemia, CMP negative for hepatic or renal dysfunction, no electrolyte disturbances. D-dimer less than 0.50, I do have a low suspicion for any PE. I do not have a EKG negative for acute STEMI. Troponin negative. Chest x-ray negative for any acute findings per radiology. Patient states she was still feeling some chest pressure that she has been feeling month or so, she does have a multitude of allergies so is only able to give her viscous lidocaine as well as 125 Solu-Medrol IVP. Patient states she did find some relief with t he Solu-Medrol, states she has , repeat troponin negative. Eliel with patient that her cardiac work-up is negative. 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 Patient was agreeable this plan of care and verbalized understanding of this plan of care. After performing a Medical Screening Examination, I estimate there is LOW risk for RUPTURED ESOPHAGUS, PNEUMOTHORAX, PULMONARY EMBOLISM, ACUTE CORONARY SYNDROME, OR THORACIC AORTIC DISSECTION, thus I consider the discharge disposition reasonable. I have reevaluated this patient multiple times and no significant life threatening changes are noted. The patient and I have discussed the diagnosis and risks, and we agree with discharging home with close follow-up. We also discussed returning to the Emergency Department immediately if new or worsening symptoms occur. We have discussed the symptoms which are most con cerning (e.g., bloody sputum, worsening pain or shortness of breath) that necessitate immediate return. - Vital Signs Vital signs: Temp Pulse Resp BP Pulse Ox 98.5 F 77 16 117/83 100 07/09/20 15:53 07/09/20 15:53 07/09/20 15:53 07/09/20 15:53 07/09/20 15:53 - Laboratory Results Result Diagrams: 07/09/20 13:30 07/09/20 13:30 Laboratory Results Interpreted: 07/09/20 07/09/20 13:30 13:30 RBC 5.37 H RDW 14.3 H Sodium 133.8 L Critical Laboratory Results Reviewed: No Critical Results - Radiology Results Critical Radiology Results Reviewed: No Critical Results Discharge - Discharge Clinical Impression: Chest pain of uncertain etiology, Cough Condition: Stable Disposition: HOME, SELF-CARE Instructions: Chest Pain of Unclear Cause ([facility]), Chest Wall Pain ([facility]), Reflux Disease (GERD) ([facility]) Additional Instructions: You were seen today for chest pain. The exact cause of your pain is unclear. However, based on your cardiac enzyme testing, chest x-ray, and EKG it does not appear that it is from an immediately life-threatening cause at this time. Although your testing here is normal is critical that you follow-up with your primary care physician for continued evaluation of this chest pain and possible stress testing. I recommended you see your physician within the next 24-48 hours to be evaluated for consideration of a stress test. Please return to emergency department immediately if you have worsening of your chest pain, shortness of breath, vomiting, become unable to exert yourself due to pain or difficulty breathing, you pass out, or have any pain that radiates into your arms, jaw, or back. Please also return if you have any additional symptoms that are concerning to you. Continue to take your Levaquin, rescue inhaler as directed. I did add prednisone for you to take for the next 5 days. A cardiology referral has been given. All of your blood work was normal today Prescriptions: Prednisone [Deltasone 20 mg Tablet] 3 tab PO DAILY 5 Days #15 tablet Omeprazole 20 mg PO BID #40 capsule.dr Forms: Return to Work Referrals: TALAT TAVAREZ FNP [Primary Care Provider] - Follow up as needed JOLEEN PETERSON MD [ACTIVE PROVISIONAL STAFF] - Follow up as needed
--- NOTE | 2020-07-09 14:13 | RADIOLOGY REPORT (SQ) ---
EXAM DESCRIPTION: CHEST SINGLE VIEW IMAGES COMPLETED DATE/TIME: 07/09/2020 12:45 pm REASON FOR STUDY: chest pain, sob COMPARISON: None. EXAM PARAMETERS: NUMBER OF VIEWS: One view. TECHNIQUE: Single frontal radiographic view of the chest acquired. RADIATION DOSE: NA LIMITATIONS: None. FINDINGS: LUNGS AND PLEURA: No opacities, masses or pneumothorax. No pleural effusion. MEDIASTINUM AND HILAR STRUCTURES: No masses. Contour normal. HEART AND VASCULAR STRUCTURES: Heart normal in size. Normal vasculature. BONES: No acute findings. HARDWARE: None in the chest. OTHER: No other significant finding. IMPRESSION: NO ACUTE RADIOGRAPHIC FINDING IN THE CHEST. TECHNICAL DOCUMENTATION: JOB ID: [id number] 2010 [employer]- All Rights Reserved Reading location - IP/workstation name: [email or web address]
[2020-07-09 14:15] LABS: ALBUMIN 4.3 g/dL (3.5-5.0); ALKALINE PHOSPHATASE 56 U/L (38-126); ANION GAP 5 (5-19); ASPARTATE AMINO TRANSFERASE 23 U/L (14-36); BILIRUBIN,DIRECT 0.1 mg/dL (0.0-0.4); BILIRUBIN,TOTAL 0.7 mg/dL (0.2-1.3); BLOOD UREA NITROGEN 18 mg/dL (7-20); CALCIUM 9.5 mg/dL (8.4-10.2); CARBON DIOXIDE 23 mmol/L (22-30); CHLORIDE 106 mmol/L (98-107); CREATINE KINASE 40 U/L (30-135); GLUCOSE 97 mg/dL (75-110); POTASSIUM 4.1 mmol/L (3.6-5.0); TOTAL PROTEIN 6.8 g/dL (6.3-8.2)
[2020-07-09 14:22] LABS: ABSOLUTE EOSINOPHILS # (AUTO) 0.2 10^3/uL (0.0-0.6); ABSOLUTE LYMPHOCYTES (AUTO) 2.2 10^3/uL (0.5-4.7); ABSOLUTE MONOCYTES (AUTO) 0.6 10^3/uL (0.1-1.4); BASOPHILS % (AUTO) 0.4 % (0-2); EOSINOPHILS % (AUTO) 3.1 % (0-6); HEMATOCRIT 44.1 % (36.0-47.0); HEMOGLOBIN 15.3 g/dL (12.0-15.5); LYMPHOCYTES % (AUTO) 27.1 % (13-45); MEAN CORPUSCULAR HEMOGLOBIN 28.5 pg (27.0-33.4); MEAN CORPUSCULAR HGB CONC 34.7 g/dL (32.0-36.0); MEAN CORPUSCULAR VOLUME 82 fl (80-97); MONOCYTES % (AUTO) 7.2 % (3-13); PLATELET COUNT 205 10^3/uL (150-450); RED BLOOD COUNT 5.37 10^6/uL (3.72-5.28); RED CELL DISTRIBUTION WIDTH 14.3 % (11.5-14.0); SEGMENTED NEUTROPHILS % (AUTO) 62.2 % (42-78); TOTAL CELLS COUNTED % (AUTO) 100 %; WHITE BLOOD COUNT 8.1 10^3/uL (4.0-10.5)
[2020-07-09 14:27] LABS: CREATINE KINASE MB 0.32 ng/mL (<4.55); TROPONIN I < 0.012 ng/mL
[2020-07-09] MEDS ORDERED: LIDOCAINE 2% VISCOUS SOLN 15 ML UDCUP PO ONE (16:04)
[2020-07-09] MEDS ORDERED: METHYLPREDNISOLONE INJ 125 MG/2 ML SDV IV ONE (16:05)
[2020-07-09 18:55] VITALS: BP 116/74
--- NOTE | 2020-07-09 23:07 | EKG REPORT ---
SEVERITY:- NORMAL ECG - SINUS RHYTHM : Confirmed by: Addison Oliva 09-Jul-2020 23:07:09
== END 2020-07-09 18:54 | disposition home or self-care (01) ==
LOC: ER 12:14
DX: R07.9 Chest pain, unspecified (principal); R06.02 Shortness of breath; Z88.0 Allergy status to penicillin; Z88.3 Allergy status to other anti-infective agents
CPT/HCPCS: 93005; 99285; 96374; 36415; 82553; 82550; 84702; 85025; 80053; 84484; 85379; 71045; 93010; J3490; J2930

== ENCOUNTER 2020-07-23 23:50 | Emergency (ER) | payer OTHER ==
[2020-07-23] MEDS ORDERED: METHYLPREDNISOLONE INJ 125 MG/2 ML SDV ONE (23:52)
[2020-07-23] MEDS ORDERED: METHYLPREDNISOLONE INJ 125 MG/2 ML SDV IV ONE (23:57)
[2020-07-24 00:55] LABS: ABSOLUTE BASOPHILS # (AUTO) 0.1 10^3/uL (0.0-0.2); ABSOLUTE EOSINOPHILS # (AUTO) 0.4 10^3/uL (0.0-0.6); ABSOLUTE LYMPHOCYTES (AUTO) 2.9 10^3/uL (0.5-4.7); ABSOLUTE MONOCYTES (AUTO) 0.8 10^3/uL (0.1-1.4); ABSOLUTE NEUT (AUTO) 6.9 10^3/uL (1.7-8.2); BASOPHILS % (AUTO) 0.7 % (0-2); EOSINOPHILS % (AUTO) 3.5 % (0-6); HEMATOCRIT 41.9 % (36.0-47.0); HEMOGLOBIN 14.2 g/dL (12.0-15.5); LYMPHOCYTES % (AUTO) 25.9 % (13-45); MEAN CORPUSCULAR HEMOGLOBIN 28.5 pg (27.0-33.4); MEAN CORPUSCULAR VOLUME 84 fl (80-97); MONOCYTES % (AUTO) 7.4 % (3-13); PLATELET COUNT 198 10^3/uL (150-450); RED BLOOD COUNT 4.99 10^6/uL (3.72-5.28); RED CELL DISTRIBUTION WIDTH 14.4 % (11.5-14.0); SEGMENTED NEUTROPHILS % (AUTO) 62.5 % (42-78); TOTAL CELLS COUNTED % (AUTO) 100 %; WHITE BLOOD COUNT 11.1 10^3/uL (4.0-10.5)
[2020-07-24 00:57] LABS: ANION GAP 6 (5-19); BLOOD UREA NITROGEN 22 mg/dL (7-20); CARBON DIOXIDE 26 mmol/L (22-30); CHLORIDE 103 mmol/L (98-107); GLUCOSE 73 mg/dL (75-110); POTASSIUM 4.1 mmol/L (3.6-5.0)
--- NOTE | 2020-07-24 01:43 | ER Document Report ---
ED Allergic Reaction - General Chief Complaint: Allergic Reaction Stated Complaint: POSSIBLE ALLERGIC REACTION Time Seen by Provider: 07/23/20 23:52 Primary Care Provider: DANIEL MYLES NP [Primary Care Provider] - Follow up as needed TRAVEL OUTSIDE OF THE [place] IN LAST 30 DAYS: No - HPI Notes: Patient is a 35-year-old female who presents with an allergic reaction. Patient states that she had Covid in May. She recently finished a course of Levaquin and prednisone by her PCP on Saturday because she had a cough that was lingering after Covid. Patient states that on Saturday she developed some erythema and hives to her right chin. She also had some erythema and redness to her right eye. Her lips have felt swollen. She has been putting hydrocortisone around her lips. Patient had an appointment with ENT this week also who stated this was may be a reaction to Levaquin. She also had hives to her bilateral arms yesterday. Today, around 9 PM she went to take a shower. Afterwards, she felt that the right side of her lip was swollen. She felt like she had a "rock in her throat ". She also states that the swelling around her eye and the redness got worse. She took 2 Benadryl around 9 PM. She states that symptoms worse around 10 PM so she called the ambulance. She got IM Benadryl in the ambulance and IV Pepcid. She received Solu-Medrol when she got to the ED. She states that she feels like there is pressure in her chest. She has follow-up with cardiology this week for further work-up of PVCs that she has been having. - Related Data Allergies/Adverse Reactions: amoxicillin [Amoxicillin] Allergy (Verified 07/09/20 13:22) GI upset azithromycin [From Zithromax] Allergy (Verified 07/09/20 13:22) Hives cefaclor [From Ceclor] Allergy (Verified 07/09/20 13:22) cefprozil [From Cefzil] Allergy (Verified 07/09/20 13:22) codeine [Codeine] Allergy (Verified 07/09/20 13:22) GI upset corn [[place]] Allergy (Verified 07/09/20 13:22) gi upset/hives dextrose [Dextrose] Allergy (Verified 07/09/20 13:22) nausea,skin rash erythromycin base [Erythromycin Base] Allergy (Verified 07/09/20 13:22) hives,gi upset metoclopramide HCl [From Reglan] Allergy (Verified 07/09/20 13:22) "Skin crawls" polysorbate 80 [Polysorbate 80] Allergy (Verified 07/09/20 13:22) povidone-iodine [From Betadine] Allergy (Verified 07/09/20 13:22) chemical rash Soap [From Betadine] Allergy (Verified 07/09/20 13:22) chemical rash sorbitol [Sorbitol] Allergy (Verified 07/09/20 13:22) soy [Soy] Allergy (Verified 07/09/20 13:22) GI upset,rash Sulfa (Sulfonamide Antibiotics) Allergy (Verified 07/09/20 13:) GI upset amoxicillin trihydrate [From Augmentin] Adverse Reaction (Severe, Verified 07/09/20 13:22) GI upset Potassium Clavulanate * [From Augmentin] Adverse Reaction (Severe, Verified 07/09/20 13:22) GI upset propofol [Propofol] Adverse Reaction (Severe, Verified 07/09/20 13:22) "EXTREME DIFFICULTY WAKING UP" succinylcholine [Succinylcholine] Adverse Reaction (Unknown, Verified 07/09/20 13:22) "STATES MOTHER HAD A BAD REACTION" TOLD NOT TO TAKE droperidol [From Inapsine] Adverse Reaction (Verified 07/09/20 13:22) Psychosis tygan Allergy (Uncoded 07/09/20 13:22) Home Medications: Nystatin. Omeprazole. Albuterol. 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 Denies: Hx Peritoneal Dialysis GI Medical History: Reports: Hx Irritable Bowel, Hx Colonoscopy, Hx Endoscopy. Denies: Hx Cirrhosis, Hx Gastroesophageal Reflux Disease Musculoskeletal Medical History: Reports Hx Arthritis, Reports Hx Musculoskeletal Deformity, Reports Hx Musculoskeletal Trauma Psychiatric Medical History: Reports: Hx Anxiety Denies: Hx Depression Traumatic Medical History: Reports: Hx Fractures Infectious Medical History: Denies: Hx C-Diff Past Surgical History: Reports: Hx Abdominal Surgery - laproscopy, Hx Section - x 3, Hx Nose Surgery, Hx Orthopedic Surgery - rt shoulder bicep repair, Hx Tonsillectomy, Hx Tubal Ligation. Denies: Hx Hysterectomy - Immunizations Immunizations up to date: Yes Hx Diphtheria, Pertussis, Tetanus Vaccination: Yes - 12/08/16 Review of Systems - Review of Systems Notes: CONSTITUTIONAL: No fever, fatigue or weight loss. SKIN: Positive to rash to bilateral arms, resolving. HENT: No congestion, ear pain, or sore throat. EYES: No recent vision problems or eye pain. Positive for erythema around the right eyelid. No pain to the eyes. No vision changes. CARDIOVASCULAR: Positive for feelings of chest pressure after the allergic reaction. RESPIRATORY: No cough, shortness of breath, congestion, or wheezing. GASTROINTESTINAL: No abdominal pain, nausea, vomiting, bloody stools or diarrhea. GENITOURINARY: No dysuria. MUSCULOSKELETAL: No joint pain or swelling. NEUROLOGIC: No seizures. No headache, focal weakness or sensory changes. HEMATOLOGIC: No unusual bruising or bleeding. PSYCHIATRIC: No depression or anxiety. Physical Exam - Vital signs Vitals: Resp BP Pulse Ox 16 136/96 H 100 07/23/20 23:50 07/23/20 23:50 07/23/20 23:50 - General General appearance: Appears well In distress: None Notes: VITAL SIGNS: Within normal limits. GENERAL: No acute distress, non-toxic appearance. HEAD: Normal with no signs of head trauma. EYES: EOMI, conjunctiva normal, no discharge. Conjunctive is normal. No erythema. No vision changes. Swelling and slight erythema to right eyelid. EARS: Hearing grossly intact. NOSE: Normal. THROAT: Oropharynx is normal. Airway is patent. Tolerating her secretions. Mild swelling to lips. NECK: Normal range of motion, no tenderness, supple, no lymphadenopathy, No adenopathy, no JVD. CHEST: Clear breath sounds bilaterally. No wheezes, rales, or rhonchi. CARDIAC: Regular rate and rhythm. VASCULAR: No Edema. ABDOMEN: Normal and soft with no tenderness. GASTROINTESTINAL: Bowel sounds normal MUSCULOSKELETAL: Good range of motion of all major joints. Extremities without clubbing, cyanosis or edema. NEUROLOGICAL: Alert and oriented x 3. No focal sensory or strength deficits. Speech normal. Follows commands appropriately. PSYCHIATRIC: Normal Affect, judgement and mood. SKIN: Healing erythema to bilateral arms, consistent with hives. Course - Re-evaluation Re-evalutation: 07/24/20 01:44 Patient is on room air. She is speaking normally. She is tolerating her secretions. Patient states she did feel some discomfort in her chest. Lab work was unremarkable. Her EKG does show PVCs which are not new. She is following up with cardiology this week. Patient has some slight erythema and swelling to her right eye consistent with allergic reaction. Her conjunctive and pupils are normal. She has no vision changes. She denies any trauma. She also has some healing swelling to her lips. Her airway is patent. She was observed for significant amount of time. Likely, patient will be discharged home with PCP follow-up. She will be given EpiPen, steroid course, Pepcid. She has Benadryl at home. 07/24/20 02:10 - Vital Signs Vital signs: Temp Pulse Resp BP Pulse Ox 98 F 14 134/80 H 98 07/24/20 00:17 07/24/20 01:01 07/24/20 01:01 07/24/20 01:01 - Laboratory Results Result Diagrams: 07/24/20 00:02 07/24/20 00:02 Laboratory Results Interpreted: 07/24/20 07/24/20 00:02 00:02 WBC 11.1 H RDW 14.4 H Sodium 135.0 L BUN 22 H Glucose 73 L Critical Laboratory Results Reviewed: No Critical Results - Radiology Results Critical Radiology Results Reviewed: No Critical Results - EKG Interpretation by Nv EKG shows normal: Sinus rhythm Rate: Normal Rhythm: NSR When compared to previous EKG there are: Changes noted Additional EKG results interpreted by me: 07/24/20 01:47 Sinus rhythm at a rate of 82. Ventricular trigeminy. ST elevation, likely early normal repol, present on previous EKG. 07/24/20 01:50 Discharge - Discharge Clinical Impression: Allergic reaction Qualifiers: Encounter type: initial encounter Qualified Code(s): T78.40XA - Allergy, unspecified, initial encounter Condition: Stable Disposition: HOME, SELF-CARE Instructions: Acute Allergic Reaction ([facility]) Additional Instructions: Your work-up today is reassuring. You will be discharged with a steroid course. Take Pepcid and Benadryl. Please follow-up with your family doctor. Return to the ER immediately for any shortness of breath, worsening symptoms. Prescriptions: Prednisone [Deltasone 20 mg Tablet] 40 mg PO DAILY 4 Days #8 tablet Famotidine [Pepcid 20 mg Tablet] 20 mg PO DAILY #7 tablet Referrals: DANIEL MYLES ACCOUNTING INSTRUCTOR [Primary Care Provider] - Follow up in 3-5 days
[2020-07-24] MEDS ORDERED: LORATADINE 10 MG TABLET PO ONE (02:32)
[2020-07-24 03:41] VITALS: BP 124/94
--- NOTE | 2020-07-24 08:52 | EKG REPORT ---
SEVERITY:- ABNORMAL ECG - SINUS RHYTHM VENTRICULAR TRIGEMINY ST ELEVATION , NO CRITERIA FOR ACUTE PERICARDITIS, CONSIDER NORMAL VARIANT. : Confirmed by: Suman Milian MD 24-Jul-2020 08:52:29
--- OUTSIDE RECORDS SUMMARY | 2020-07-26 10:39 | XMS REPORT ---
:1985 Author Organization [facility] Address [facility] [address] [place] [address] Care Team Providers Name Role Phone Pina Lew Attending Clinician Unavailable Chuyita Lynn Attending Clinician Unavailable Ciarra Washington Attending Clinician Unavailable Allergies, Adverse Reactions, Alerts Allergy Name Allergy Status Severity Reaction(s) Onset Inactive Treat ing Comments Type Date Date Clinician SOY Drug Active Unknown allergy - 00:00: 00 CORN Drug Active Unknown allergy - 00:00: 00 AZITHROMYCIN Drug Active Unknown allergy - 00:00: 00 Codeine Codeine Active Derivatives Derivatives Dextrose Dextrose Active SOLN SOLN Droperidol Droperidol Active SOLN SOLN Erythromycin Erythromyci Active Derivatives n Derivatives Polysorbate Polysorbate Active Povidone-Iod Povidone-Io Active ine SOLN dine SOLN Amoxicillin Amoxicillin Active TABS TABS Sulfa Drugs Sulfa Drugs Active Soy Soy Active Augmentin XR Augmentin Active TB12 XR TB12 Azithromycin Azithromyci Active TABS n TABS Medications Ordered Filled Start Stop Current Ordering Indication Dosage Frequency Signature Comments Components Medication Medication Date Date Medication? Clinician (SIG) Name Name Albuterol Yes Albuterol Sulfate HFA 1-06 Sulfate 108 (90 00:00: HFA 108 Base) 00 (90 Base) MCG/ACT MCG/ACT Inhalation Inhalation Aerosol Aerosol Solution Solution TAKE 2 PUFFS BY MOUTH EVERY 4 TO 6 HOURS NEEDED Quantity: 7 Refills: 0 Start : 06-Jul-2020 Active Medications No Medication not s not documented documented Aleve TABS Yes Aleve TABS Refills: 0 Active Nystatin Yes Nystatin [id number] UNIT/ML UNIT/ML Mouth/Throa Mouth/Thro t at Suspension Suspension Refills: 0 Active Diflucan Yes Diflucan 150 MG Oral 150 MG Tablet Oral Tablet Refills: 0 Active Problems Condition Condition Condition Status Onset Resolution Last Treatin g Comments Name Details Category Date Date Treatment Clinician Date Disease Active Condition medical history not documented Chest pain Chest pain Problem Active Procedures Procedure Date / Time Performed Performing Clinician Brandon gonzales DP-2D Echo 2020-07-22 00:00:00 OFFICE/OUTPATIENT VISIT EST 2019-12-03 14:30:00 OFFICE/OUTPATIENT VISIT NEW 2019-08-13 10:00:00 OFFICE/OUTPATIENT VISIT EST 2019-07-23 08:30:00 OFFICE/OUTPATIENT VISIT EST 2019-07-22 13:25:00 OFFICE/OUTPATIENT VISIT EST 2019-07-20 13:00:00 Procedures not documented Results Test Description Test Time Test Comments Text Results Atomic Results Result Comments SARS-CoV-2 RNA Resp Ql JOHN+probe 2020-05-19 00:00:00 Test Item Value Reference Range Comments SARS-CoV-2 RNA Resp Ql JOHN+probe Detected [place] Covid [facility] Case ID: (test code = 16547-9) [id number] Urine \S\2019-07-22 13:25:00 Test Item Value Reference Range Comments Urine (test code = URINEPREG) negative N/A C-REACTIVE [id number] 13:55:004.8CBC (INCLUDES DIFF/PLT)2019-07-20 13:55:00 Test Item Value Reference Range Comments PLATELET COUNT (test code = 25413919) 223 Thousand/uL 140-400 MCH (test code = 79623759) 29.3 pg 27.0-33.0 MCHC (test code = 59285165) 35.4 g/dL 32.0-36.0 WHITE BLOOD CELL COUNT (test code = 8.4 Thousand/uL 3.8-10.8 73709668) ABSOLUTE EOSINOPHILS (test code = 44955606) 487 cells/uL 15-5 00 ABSOLUTE LYMPHOCYTES (test code = 36992530) 2159 cells/uL 850- 3900 EOSINOPHILS (test code = 77418575) 5.8 % MCV (test code = 46286361) 82.8 fL 80.0-100.0 HEMATOCRIT (test code = 70532495) 43.2 % 35.0-45.0 RDW (test code = 07754107) 13.4 % 11.0-15.0 NEUTROPHILS (test code = 78987042) 61.1 % ABSOLUTE MONOCYTES (test code = 03331580) 563 cells/uL 200-95 0 HEMOGLOBIN (test code = 88341075) 15.3 g/dL 11.7-15.5 BASOPHILS (test code = 72512347) 0.7 % RED BLOOD CELL COUNT (test code = 69836926) 5.22 Million/uL 3.80 -5.10 ABSOLUTE BASOPHILS (test code = 82940947) 59 cells/uL 0-200 LYMPHOCYTES (test code = 50125399) 25.7 % MONOCYTES (test code = 79413148) 6.7 % ABSOLUTE NEUTROPHILS (test code = 43012699) 5132 cells/uL 1500 -7800 MPV (test code = 95413545) 9.69.6 fL 7.5-12.5 SED RATE BY MODIFIED [id number] 13:55:47459UCAOJEDWMOTXR METABOLIC [id number] 13:55:00 Test Item Value Reference Range Comments CARBON DIOXIDE (test code = 54196966) 28 mmol/L 20-32 AST (test code = 82222555) 18 U/L 10-30 GLOBULIN (test code = 91970338) 2.1 g/dL (calc) 1.9-3.7 CREATININE (test code = 49077043) 0.60 mg/dL 0.50-1.10 GLUCOSE (test code = 14734287) 79 mg/dL 65-99 SODIUM (test code = 06106881) 139 mmol/L 135-146 ALBUMIN (test code = 89992933) 4.5 g/dL 3.6-5.1 POTASSIUM (test code = 93788263) 4.8 mmol/L 3.5-5.3 eGFR NON-AFR. TUNISIAN (test code = 120 mL/min/1.73m2 > OR = 60 72586697) BUN/CREATININE RATIO (test code = NOT APPLICABLE (calc) 6-22 74837738) eGFR (test code = 139 mL/min/1.73m2 > OR = 60 37734826) CALCIUM (test code = 09602703) 9.2 mg/dL 8.6-10.2 BILIRUBIN, TOTAL (test code = 0.6 mg/dL 0.2-1.2 08398986) UREA NITROGEN (BUN) (test code = 19 mg/dL 7-25 75630153) CHLORIDE (test code = 49189626) 104 mmol/L 98-110 PROTEIN, TOTAL (test code = 94407806) 6.66.6 g/dL 6.1-8.1 ALKALINE PHOSPHATASE (test code = 70 U/L 33-115 30945874) ALT (test code = 82208187) 17 U/L 6-29 ALBUMIN/GLOBULIN RATIO (test code = 2.12.1 (calc) 1.0-2.5 71188167) CULTURE, URINE, [id number] 00:00:00SEE NOTEPap, TP Imaging rflx HPV w/ [id number] 13:34:00 Test Item Value Reference Range Comments LMP: (test code = 776703) 59398743 Number of Slides/Vials: (test code = 1 Vial Submitted 625951) Chlamydia trachomatis RNA (test code = NOT DETECTED 470899) Neisseria gonorrhoeae RNA (test code = NOT DETECTED 275443) Source: (test code = 358662) Cervical/endocervical Assessments Condition Name Status Diagnosis Date Treating Clinici an Allergic rhinitis due to pollen Active Other allergic rhinitis Active Other nonmedicinal substance allergy status Active Body mass index (BMI) 24.0-24.9, adult Active Chronic rhinitis Active Deviated nasal septum Active Allergic rhinitis due to pollen Active Oth allergy status, oth than to drugs and Active biolg substances Unspecified ovarian cyst, right side Active Unspecified ovarian cyst, left side Active Pelvic and perineal pain Active Dysuria Active Dysuria Active Unspecified abdominal pain Active Personal history of urinary calculi Active Body mass index (BMI) 24.0-24.9, adult Active Dysuria Active Acute cystitis with hematuria Active Acute maxillary sinusitis, unspecified Active Encounter for screening for human Active papillomavirus (HPV) Encounters Start End Encounter Admission Attending Care Care Encounter Date/Time Date/Time Type Type Clinicians Facility Department ID 2020-07-22 2020-07-22 Appointment [facility] [id number] 13:30:00 13:30:00 ; Ulices, Kari Maurice 2019-12-03 2019-12-03 Outpatient Pina Lew [facility] [id number] 14:30:00 14:30:00 Children [id number] s [id number] and [id number] [facility], 2019-08-13 2019-08-13 Outpatient Hioe, Pina [facility] [id number] 10:00:00 10:00:00 Children [id number] s [id number] and [id number] [facility], 2019-07-23 2019-07-23 Outpatient Bundle, [facility] 6B [id number] 08:30:00 08:30:00 Chuyita Children [id number] s [id number] and [id number] [facility], 2019-07-22 2019-07-22 [facility] [id number] 13:25:00 13:25:00 Children [id number] s [id number] and [id number] [facility], 2019-07-20 2019-07-20 Outpatient Bundle, [facility] 07 [id number] 13:00:00 13:00:00 Chuyita Children [id number] s [id number] and [id number] [facility], Family History Family Member Diagnosis Comments Start Date Stop Date Unspecified Family history of cerebrovascular Unknown accident (CVA) Unspecified Family history of diabetes mellitus Unknown Unspecified Family history of hypertension Unknown Unspecified Family history of thyroid disease Unknown Mother Family history of hypertension Plan of Treatment Planned Activity Planned Date Details Comments Future Scheduled Test [code = ] Social History Smoking Status Start Date Stop Date Never smoked tobacco (finding) Vital Signs Vital Name Observation Time Observation Value Comments Systolic blood pressure 2020-07-22 13:37:00 114 mm[Hg] Diastolic blood pressure 2020-07-22 13:37:00 82 mm[Hg] Body height 2020-07-22 13:37:00 65 [in_us] Weight 2020-07-22 13:37:00 130 [lb_av] Body mass index (BMI) [Ratio] 2020-07-22 13:37:00 21.63 kg/m2 Heart Rate 2020-07-22 13:37:00 94 /min Hospital Discharge Instructions NameDatesDetailsInstructions not documented
== END 2020-07-24 03:41 | disposition home or self-care (01) ==
LOC: ER 23:50
DX: T78.40XA Allergy, unspecified, initial encounter (principal); R05 Cough; Z86.16 Personal history of COVID-19; Z88.0 Allergy status to penicillin
CPT/HCPCS: 93005; 99284; 96374; 36415; 85025; 80048; 84484; 93010; J2930